=== PATIENT | female | born 1955 | race African-American/Black ===

== ENCOUNTER → 2016-09-08 | Outpatient (CLI) | payer BC | LOC: RAD 12:39 | PROVIDERS: ATTEND Internal Medicine | DX: C34.31 Malignant neoplasm of lower lobe, right bronchus or lung (principal) | CPT/HCPCS: 71260; 74177 ==

== ENCOUNTER → 2016-11-02 | Outpatient (CLI) | payer BC | LOC: RAD 09:34 | PROVIDERS: ATTEND Internal Medicine | DX: C34.31 Malignant neoplasm of lower lobe, right bronchus or lung (principal) | CPT/HCPCS: 71260; 74177 ==

== ENCOUNTER → 2017-01-13 | Outpatient (CLI) | payer BC | LOC: OD 10:30 | PROVIDERS: ATTEND Radiology Radiation Oncology | DX: C77.1 Secondary and unspecified malignant neoplasm of intrathoracic lymph nodes (principal); C34.31 Malignant neoplasm of lower lobe, right bronchus or lung ==

== ENCOUNTER → 2017-01-28 | Outpatient (CLI) | payer BC ==
--- NOTE | 2017-01-28 11:57 | RADIOLOGY REPORT (SQ) ---
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 TECHNIQUE: Left shoulder images acquired and stored on PACS. Multiplanar imaging to include fat sens itive sequences such as T1, water sensitive sequences such as FST2/STIR, cartilage sensitive sequence s such as FSPD/gradient-echo sequences. LIMITATIONS: Patient motion. FINDINGS: BONE MARROW AND CORTEX: No worrisome bone lesions or marrow replacement. No occult fractur es. JOINT OR BURSAL EFFUSION: No significant joint or bursal fluid. No suggestion of loose bodies. GLENO-HUMERAL ARTICULATION: Normal articulation. No subluxation. No cystic change. No osteophytes or cartilage loss. ACROMION AND AC JOINT: Type 2. No down-sloping or distal spur. Sub-acromial space maintained. No si gnificant AC joint arthropathy. ROTATOR CUFF AND INTERVAL: Cuff musculature is symmetric with normal signal. Small rim rent tear of the supraspinatus. Small amount of fluid surrounding the cuff. Infraspinatus, subscapularis and ter es minor are intact. No rotator interval tear. No rotator interval thickening to suggest adhesive capsulitis. LABRUM AND BICEPS LABRAL COMPLEX: Intact. No labral tear. Intra-articular long-head biceps tendon n ormal. Distal biceps in normal location in bicipital groove. REMAINDER OF LABRUM AND IGHL : No gross tear or paralabral cyst formation. Labral evaluation is less than optimal without joint distention. No thickening of IGHL to suggest adhesive capsulitis. PERIARTICULAR AND ADJACENT SOFT TISSUES: No masses or abnormal nodes. OTHER: No other significant finding. IMPRESSION: Peritendinitis. Small rim rent tear of the supraspinatus. No full-thickness tear. TECHNICAL DOCUMENTATION: JOB ID: [id number] [employer]- All Rights Reserved
--- NOTE | 2017-01-28 12:08 | RADIOLOGY REPORT (SQ) ---
EXAM DESCRIPTION: MRI LT UPPER EXTREMITY COMBO COMPLETED DATE/TIME: 01/28/2017 11:22 am REASON FOR STUDY: SECONDARY MALIGNANT NEOPLASM OF BONE (C79.51) COMPARISON: None. TECHNIQUE: T1 pre and post gadolinium, T2 fat sat sequences of the left humerus. Images saved to [facility]. CONTRAST TYPE AND DOSE: 15 cc ProHance. RENAL FUNCTION: GFR > 60. LIMITATIONS: None. FINDINGS: Intermediate T1 signal with normal T2 signal in the proximal humeral shaft consistent with benign marrow reconversion. No bone or soft tissue mass. Neurovascular structures are intact. The re is a left-sided port partially visualized. IMPRESSION: No evidence of metastatic disease. TECHNICAL DOCUMENTATION: JOB ID: [id number] [employer]- All Rights Reserved
== END ==
LOC: RAD 08:38
PROVIDERS: ATTEND Internal Medicine
DX: C79.51 Secondary malignant neoplasm of bone (principal); M25.512 Pain in left shoulder
CPT/HCPCS: 73220; 73221; A9576

== ENCOUNTER → 2017-02-06 | Outpatient (CLI) | payer BC ==
--- NOTE | 2017-02-10 14:22 | RADIOLOGY REPORT (SQ) ---
EXAM DESCRIPTION: PET CT SKULL/THIGH COMPLETED DATE/TIME: 02/06/2017 10:21 pm REASON FOR STUDY: LUNG CANCER C34.31 MALIGNANT NEOPLASM OF LOWER LOBE, RIGHT BRONCHUS OR L COMPARISON: CT chest 11/02/2016, 09/08/2016 PET-CT 07/01/2016, 03/21/2016, 10/15/2012 RADIONUCLIDE AND DOSE: 10.9 mCi F18 FDG The route of agent administration: Intravenous FASTING BLOOD SUGAR: 88 mg/dl CONTRAST TYPE AND DOSE: No CT contrast given. TECHNIQUE: Blood glucose level was verified. Above dose of FDG was injected intravenously. 2-D seg mented attenuation correction images were obtained from the base of the skull to the midthighs. Nonc ontrast CT images were obtained for attenuation correction and fusion with emission images. CT image s were performed without oral or intravenous contrast and are not sensitive for parenchymal lesions. A series of overlapping emission PET images were obtained. Images reviewed and manipulated at [facility] work station by the radiologist. Images stored on PACS. LIMITATIONS: Mild misregistration artifact between the CT and PET images over the head and upper nec k FINDINGS: HEAD AND NECK: No areas of abnormal metabolic activity in the soft tissues of the head and neck. CHEST: The right hilar activity seen on 07/01/2016 has slightly decreased, now with SUV of 3.3. There is right lower lobe collapse, consolidation, and bronchiectasis similar compared to the previous chano dies with the radiation therapy marker over the right lower lobe, unchanged. No pleural effusions. ABDOMEN AND PELVIS: No areas of abnormal metabolic activity in the abdomen or pelvis. Expected physi ologic activity is present in the genitourinary system and bowel. PROXIMAL LOWER EXTREMITIES: No areas of abnormal metabolic activity in the soft tissues of the lower extremities. BONES: No abnormal metabolic activity in the visualized skeleton. Specifically, the lesions in L4, L 5, S1, and the right innominate bone seen on prior PET-CT 07/01/2016 and have resolved. There is left glenohumeral joint space narrowing with synovial uptake with SUV 3.[address] FINDINGS: Tiny midline the supraumbilical fat containing ventral hernia, left upper thierry e intrarenal nonobstructive 5 mm calculus. Post cholecystectomy. Left permanent central line tip shrestha perior vena cava. Previously placed PleurX catheter has been removed. Liver activity SUV 2.3, blood pool activity SUV 1.8 OTHER: No other significant findings. IMPRESSION: Resolution of bony metastatic disease since prior PET-CT. Post therapeutic changes in the right lung with chronic volume loss and consolidation in the right lo wer lobe with very mild persistent increased uptake at the right hilum. Hilar uptake is less promine nt than on prior PET-CT. TECHNICAL DOCUMENTATION: JOB ID: [id number] [employer]- All Rights Reserved
== END ==
LOC: RAD 02-04 14:05
PROVIDERS: ATTEND Internal Medicine
DX: C34.31 Malignant neoplasm of lower lobe, right bronchus or lung (principal)
CPT/HCPCS: 78815; A9552

== ENCOUNTER → 2017-06-05 | Outpatient (CLI) | payer BC ==
--- NOTE | 2017-06-07 10:12 | RADIOLOGY REPORT (SQ) ---
EXAM DESCRIPTION: PET CT SKULL/THIGH COMPLETED DATE/TIME: 06/05/2017 8:00 pm REASON FOR STUDY: LUNG CANCER C34.31 MALIGNANT NEOPLASM OF LOWER LOBE, RIGHT BRONCHUS OR L COMPARISON: PET-CT 10/15/2012, 03/21/2016, 07/11/2016, 02/06/2017 CT chest abdomen pelvis 09/08/2016, 11/02/2016 RADIONUCLIDE AND DOSE: 10.4 mCi F18 FDG The route of agent administration: Intravenous FASTING BLOOD SUGAR: 94 mg/dl CONTRAST TYPE AND DOSE: No CT contrast given. TECHNIQUE: Blood glucose level was verified. Above dose of FDG was injected intravenously. 2-D seg mented attenuation correction images were obtained from the base of the skull to the midthighs. Nonc ontrast CT images were obtained for attenuation correction and fusion with emission images. CT image s were performed without oral or intravenous contrast and are not sensitive for parenchymal lesions. A series of overlapping emission PET images were obtained. [facility] by the radiologist. Images stored on PACS. LIMITATIONS: None. FINDINGS: HEAD AND NECK: No areas of abnormal metabolic activity in the soft tissues of the head and neck. CHEST: There is a new nodule in the medial aspect right upper lobe on axial image 70, with SUV of 1.8 . This is abnormal but nonspecific. There is right lower lobe volume loss and consolidation similar compared to 02/06/2017 and 07/11/2016. However, on today's exam there is a thin rind of hypermetabolic activity around its periphery with SUV ranging from 5 to 5.2 this is new hypermetabolic activity compared to 02/06/2017. There is soft tissue dorsal to the bronchus intermedius with mild impression on the dorsal wall. Thi s is just above the right lower lobe consolidation, with SUV of 5.0. Findings are worrisome for an e nlarged inflamed lymph node or tumor in a lymph node. There is a small right pleural effusion. Along the right lung base/ inferior hemithorax there is ple ural metabolic activity with SUV of 2.2. There is a 6 mm nodule at the right lung apex similar compared to previous studies with SUV 1.8, nons pecific. ABDOMEN AND PELVIS: No areas of abnormal metabolic activity in the abdomen or pelvis. Expected physi ologic activity is present in the genitourinary system and bowel. PROXIMAL LOWER EXTREMITIES: No areas of abnormal metabolic activity in the soft tissues of the lower extremities. BONES: The hypermetabolic bony lesions seen on 07/11/[address] FINDINGS: Left permanent central line tip superior vena cava. Post cholecystectomy. P ost left mastectomy. Tiny midline ventral hernia. Bilateral renal calculi, left upper pole renal cy st. OTHER: Liver background SUV 2.2. Blood pool background SUV 1.4 IMPRESSION: Metabolic activity along the right lower hemithorax primarily along the pleural space wo rrisome for recurrent disease. This is seen as a rim of hypermetabolic activity around the periphery of the right lower lobe. Hypermetabolic lymph node in the right hilum dorsal to the bronchus intermedius TECHNICAL DOCUMENTATION: JOB ID: [id number] [employer]- All Rights Reserved
== END ==
LOC: RAD 16:00
PROVIDERS: ATTEND Internal Medicine
DX: C34.90 Malignant neoplasm of unspecified part of unspecified bronchus or lung (principal)
CPT/HCPCS: 78815; A9552

== ENCOUNTER → 2017-06-15 | Outpatient (CLI) | payer BC ==
--- NOTE | 2017-06-15 16:51 | WOMENS IMAGING REPORT ---
EXAM DESCRIPTION: 3D DX MAMMO RIGHT UNILAT; U/S BREAST UNILAT LIMITED COMPLETED DATE/TIME: 06/15/2017 8:51 am; 06/15/2017 9:41 am REASON FOR STUDY: MASTOYDYNIA; N64.4; RT BREAST PAIN N64.4 MASTODYNIA COMPARISON: None. TECHNIQUE: Standard craniocaudal and mediolateral oblique images of the right breast recorded using digital acquisition and breast tomosynthesis. Right breast 90 mediolateral view and tomosynthesis. Right breast ultrasound in the area of pain Patient is post left mastectomy LIMITATIONS: None. FINDINGS: BREAST: Right MASSES: No suspicious masses. CALCIFICATIONS: No new or suspicious calcifications. ARCHITECTURAL DISTORTION: None. DEVELOPING DENSITY: None. ASYMMETRY: None noted. OTHER: No other significant findings. Read with the assistance of CAD. .[facility] - R2 Cenova Version 1.3 .[facility] - R2 Cenova Version 1.3 .[facility] - R2 Cenova Version 2.4 .[facility] [place] - R2 Cenova Version 2.4 .[facility] - R2 [employer] Version 9.2 Right breast ultrasound: Ultrasound of the right breast from the 1 o'clock to the 5 o'clock position was performed in the area of breast pain. No discrete cystic or solid lesions. No acoustic absorpt ion. No worrisome focal findings. IMPRESSION: No mammographic/tomosynthesis evidence for malignancy right breast. No ultrasound evide nce for malignancy right breast. BREAST DENSITY: a. The breasts are almost entirely fatty. BIRAD: 1 Negative. RECOMMENDATION: RECOMMENDED FOLLOW UP: Please continue yearly right breast screening tomosynthesis i n May 2018 unless otherwise clinically indicated sooner SPECIFIC INTERVENTION/IMAGING/CONSULTATION RECOMMENDED:No additional intervention/ imaging/consultati on needed at this time. COMMUNICATION:Patient notified by letter COMMENT: The patient has been notified of the results by letter per SA requirements. Additional no tification policies are in place for contacting patient with suspicious or incomplete findings. Quality ID #225: The [employer] recommends an annual screening mammogram for women aged 40 years or over. This facility utilizes a reminder system to ensure that all patients receive reminder letters, and/or direct phone calls for appointments. This includes reminders for routine scr eening mammograms, diagnostic mammograms, or other Breast Imaging Interventions when appropriate. Th is patient will be placed in the appropriate reminder system. The [employer] (ACR) has developed recommendations for screening MRI of the breast s in certain patient populations, to be used in conjunction with mammography. Breast MRI surveillanc e may be appropriate for women with more than 20% lifetime risk of developing breast cancer as deter mined by genetic testing, significant family history of the disease, or history of mantle radiation f or Hodgkins Disease. ACR Practice Guidelines 2008. DBT Technology DBT is a type of tomographic mammography. With conventional mammography, overlapping breast tissue ma y make lesions difficult to detect, even with good compression. DBT uses an x-ray tube that rotates a round the breast, taking images at different angles. These images are then combined to create thin sl ices of the breast that the radiologist can view as a 3D reconstruction. The [employer] unit can perform full-field digital mammograms (2D imaging); or DBT (3D imaging); or both, in a combination mode that quickly performs both the mammogram and the tomosynthesis scan while the breast is still compressed. PQRS 6045F: Fluoroscopic imaging is not utilized for breast tomosynthesis. TECHNICAL DOCUMENTATION: FINDING NUMBER: (1) ASSESSMENT: (1) JOB ID: [id number] [employer]- All Rights Reserved
--- NOTE | 2017-06-15 16:51 | WOMENS IMAGING REPORT ---
EXAM DESCRIPTION: 3D DX MAMMO RIGHT UNILAT; U/S BREAST UNILAT LIMITED COMPLETED DATE/TIME: 06/15/2017 8:51 am; 06/15/2017 9:41 am REASON FOR STUDY: MASTOYDYNIA; N64.4; RT BREAST PAIN N64.4 MASTODYNIA COMPARISON: None. TECHNIQUE: Standard craniocaudal and mediolateral oblique images of the right breast recorded using digital acquisition and breast tomosynthesis. Right breast 90 mediolateral view and tomosynthesis. Right breast ultrasound in the area of pain Patient is post left mastectomy LIMITATIONS: None. FINDINGS: BREAST: Right MASSES: No suspicious masses. CALCIFICATIONS: No new or suspicious calcifications. ARCHITECTURAL DISTORTION: None. DEVELOPING DENSITY: None. ASYMMETRY: None noted. OTHER: No other significant findings. Read with the assistance of CAD. .[facility] - R2 Cenova Version 1.3 .[facility] Imaging - R2 Cenova Version 1.3 .[facility] - R2 Cenova Version 2.4 .[facility] - R2 Cenova Version 2.4 .[facility] - R2 [employer] Version 9.2 Right breast ultrasound: Ultrasound of the right breast from the 1 o'clock to the 5 o'clock position was performed in the area of breast pain. No discrete cystic or solid lesions. No acoustic absorpt ion. No worrisome focal findings. IMPRESSION: No mammographic/tomosynthesis evidence for malignancy right breast. No ultrasound evide nce for malignancy right breast. BREAST DENSITY: a. The breasts are almost entirely fatty. BIRAD: 1 Negative. RECOMMENDATION: RECOMMENDED FOLLOW UP: Please continue yearly right breast screening tomosynthesis i n May 2018 unless otherwise clinically indicated sooner SPECIFIC INTERVENTION/IMAGING/CONSULTATION RECOMMENDED:No additional intervention/ imaging/consultati on needed at this time. COMMUNICATION:Patient notified by letter COMMENT: The patient has been notified of the results by letter per SA requirements. Additional no tification policies are in place for contacting patient with suspicious or incomplete findings. Quality ID #[id number]: The [employer] recommends an annual screening mammogram for women aged 40 years or over. This facility utilizes a reminder system to ensure that all patients receive reminder letters, and/or direct phone calls for appointments. This includes reminders for routine scr eening mammograms, diagnostic mammograms, or other Breast Imaging Interventions when appropriate. Th is patient will be placed in the appropriate reminder system. The [employer] (ACR) has developed recommendations for screening MRI of the breast s in certain patient populations, to be used in conjunction with mammography. Breast MRI surveillanc e may be appropriate for women with more than 20% lifetime risk of developing breast cancer as deter mined by genetic testing, significant family history of the disease, or history of mantle radiation f or Hodgkins Disease. ACR Practice Guidelines 2008. DBT Technology DBT is a type of tomographic mammography. With conventional mammography, overlapping breast tissue ma y make lesions difficult to detect, even with good compression. DBT uses an x-ray tube that rotates a round the breast, taking images at different angles. These images are then combined to create thin sl ices of the breast that the radiologist can view as a 3D reconstruction. The [employer] unit can perform full-field digital mammograms (2D imaging); or DBT (3D imaging); or both, in a combination mode that quickly performs both the mammogram and the tomosynthesis scan while the breast is still compressed. PQRS 6045F: Fluoroscopic imaging is not utilized for breast tomosynthesis. TECHNICAL DOCUMENTATION: FINDING NUMBER: (1) ASSESSMENT: (1) JOB ID: [id number] [employer]- All Rights Reserved
== END ==
LOC: WI 08:34
PROVIDERS: ATTEND Physician Assistant
DX: N64.4 Mastodynia (principal)
CPT/HCPCS: 77061; 76642; G0206

== ENCOUNTER 2017-08-25 18:18 | Inpatient (IN) | payer BC ==
[2017-08-25] MEDS ORDERED: ACETAMINOPHEN 325 MG TABLET PO PRN (19:32)
[2017-08-25] MEDS ORDERED: ONDANSETRON HCL INJ/PF 4 MG/2 ML SDV IV PRN (19:32)
[2017-08-25] MEDS ORDERED: INSULIN LISPRO 100 UNIT/ML 3 ML VIAL SUBCUT PRN (19:38)
[2017-08-25] MEDS ORDERED: DEXTROSE 40% GEL 15 GM TUBE PO PRN ×2 (19:38)
[2017-08-25] MEDS ORDERED: DEXTROSE 50%-WATER 25 GM/50 ML DISP.SYRIN IV PRN ×2 (19:38)
[2017-08-25] MEDS ORDERED: GLUCAGON,HUMAN RECOMB 1 MG INJ IM PRN (19:38)
[2017-08-25] MEDS ORDERED: MAG HYDROX/AL HYDROX/SIMETH SUSP 30 ML UDCUP PO PRN (19:41)
[2017-08-25] MEDS ORDERED: ALBUTEROL SULFATE HFA (90 MCG/PUFF) 200 PUFF/8.5 GM MDI IH PRN (20:55)
[2017-08-25] MEDS ORDERED: INFLUENZA ADLT QUAD (36MOS+) 2017-18 VAC 0.5 ML SYR IM PRN (21:00)
[2017-08-25 21:43] LABS: ANION GAP 17 (5-19); BLOOD UREA NITROGEN 16 mg/dL (7-20); CALCIUM 10.3 mg/dL (8.4-10.2); CARBON DIOXIDE 24 mmol/L (22-30); CHLORIDE 101 mmol/L (98-107); GLUCOSE 131 mg/dL (75-110); SODIUM 141.5 mmol/L (137-145)
[2017-08-25] MEDS: IPRATROPIUM/ALBUTEROL 0.5-2.5 MG/3 ML AMPUL NEB SCH (21:50)
[2017-08-25] MEDS: BENZONATATE 100 MG CAPSULE PO SCH (22:20)
[2017-08-25] MEDS: CLONIDINE HCL 0.1 MG TABLET PO SCH (22:21)
[2017-08-25] MEDS: GUAIFENESIN 600 MG TABLET.SA PO SCH (22:21)
[2017-08-25] MEDS: MONTELUKAST SODIUM 10 MG TABLET PO SCH (22:22)
[2017-08-25] MEDS: FLUTICASONE/SALMETEROL DISKUS 250-50 MCG/DOSE IH SCH (22:22)
[2017-08-25] MEDS: RANOLAZINE 500 MG TAB.SR.12H PO SCH (22:22)
[2017-08-25] MEDS: LATANOPROST 0.005% OPH SOLN 2.5 ML OU SCH (22:26)
[2017-08-25] MEDS: OXYCODONE-ACETAMINOPHEN 5-325 MG TABLET PO PRN (23:08)
[2017-08-25] MEDS: POTASSI CL 40 MEQ/NS 1L 1,000 ML IV PRN (23:14)
--- NOTE | 2017-08-26 00:44 | RADIOLOGY REPORT (SQ) ---
EXAM DESCRIPTION: CT CHEST, ABDOMEN AND PELVIS WITH CONTRAST CLINICAL HISTORY: lung cancer COMPARISON: 11/02/2016 TECHNIQUE: CT of the chest, abdomen and pelvis are performed during IV bolus administration of 97 mL of Isovue-370. DLP: 1551.63 mGycm FINDINGS: Chest: Mediastinal windows demonstrate no abnormalities of visualized thyroid gland. Great vessels have normal anatomic configuration. Visualized thoracic aorta is unremarkable. No gross abnormalities of the pulmonary artery. No cardiomegaly, pericardial effusion, or coronary artery atherosclerosis. No definite abnormalities of the esophagus. No mediastinal lymphadenopathy. Lung windows demonstrate no pneumothorax. Pleural thickening and possible small right pleural effusion. Right basilar consolidation with air bronchograms. Adjacent to that is there is an area without air bronchograms that may represent a mass or dense nonaerated consolidation. This does represent a mass the approximate area is 4.2 cm in greatest dimension. Pleural-based nodular opacity in the right lung measuring 0.9 cm. Possible tiny left pleural effusion. No left-sided consolidation or pulmonary nodules. Postoperative changes in the right lung base. In the right upper lobe there are bandlike nodular opacities measuring 0.8 cm. No well-defined lung mass identified in the right lung base. Possible prior Abdomen: The liver has normal size and density. No intrahepatic mass or biliary dilatation. Prior cholecystectomy. The spleen, pancreas, and adrenal glands are unremarkable. Bosniak class I left renal cysts. No hydronephrosis or solid mass. Aortoiliac atherosclerosis. IVC is unremarkable. The portal vein patent. The proximal visceral and renal arteries are patent. No free intraperitoneal air. The stomach and duodenum have normal course. Pelvis: Large amount of ascites. Prior hysterectomy. Urinary bladder is unremarkable. No free pelvic fluid or lymphadenopathy. No dilated loops of large or small bowel. No evidence of appendicitis. No lytic osseous lesions identified. IMPRESSION: 1. Masslike consolidation of the right lung base. The solid portion of this consolidation measures 4.2 cm with adjacent consolidated lungs with air bronchograms. This could represent a mass with postobstructive pneumonic process of the right lower lobe. Alternatively, the entire opacity could represent pneumonic or malignant consolidation. 2. There is a 0.9 cm pleural-based pulmonary nodule in the right midlung best seen on image #28, series 4. There are also 3 nodular opacities in the right upper lung measuring approximately 0.8 cm best seen on image numbers 19 and 20. These could represent neoplastic pulmonary nodules, scarring, or postoperative change. PET/CT may be able to provide additional characterization. 3. Possible tiny bilateral pleural effusions. 4. Moderate to large amount of ascites. This exam was performed according to our departmental dose-optimization program, which includes automated exposure control, adjustment of the mA and/or kV according to patient size and/or use of iterative reconstruction technique.
[2017-08-26] MEDS: CLONIDINE HCL 0.1 MG TABLET PO SCH ×3 (06:00→21:49)
[2017-08-26] MEDS: LANSOPRAZOLE 30 MG TAB.RAP.DR PO SCH ×2 (06:00→17:35)
[2017-08-26 07:10] LABS: ABSOLUTE EOSINOPHILS # (AUTO) 0.1 10^3/uL (0.0-0.6); ABSOLUTE LYMPHOCYTES (AUTO) 0.9 10^3/uL (0.5-4.7); ABSOLUTE MONOCYTES (AUTO) 0.8 10^3/uL (0.1-1.4); BASOPHILS % (AUTO) 0.4 % (0-2); EOSINOPHILS % (AUTO) 2.4 % (0-6); HEMATOCRIT 34.4 % (36.0-47.0); HEMOGLOBIN 11.3 g/dL (12.0-15.5); LYMPHOCYTES % (AUTO) 17.9 % (13-45); MEAN CORPUSCULAR HEMOGLOBIN 30.5 pg (27.0-33.4); MEAN CORPUSCULAR VOLUME 92 fl (80-97); MONOCYTES % (AUTO) 15.9 % (3-13); PLATELET COUNT 211 10^3/uL (150-450); RED BLOOD COUNT 3.72 10^6/uL (3.72-5.28); RED CELL DISTRIBUTION WIDTH 14.4 % (11.5-14.0); SEGMENTED NEUTROPHILS % (AUTO) 63.4 % (42-78); TOTAL CELLS COUNTED % (AUTO) 100 %; WHITE BLOOD COUNT 4.8 10^3/uL (4.0-10.5)
[2017-08-26 07:31] LABS: ALANINE AMINOTRANSFERASE 30 U/L (9-52); ALBUMIN 3.5 g/dL (3.5-5.0); ALKALINE PHOSPHATASE 81 U/L (38-126); ANION GAP 12 (5-19); ASPARTATE AMINO TRANSFERASE 31 U/L (14-36); BILIRUBIN,DIRECT 0.2 mg/dL (0.0-0.4); BILIRUBIN,TOTAL 0.6 mg/dL (0.2-1.3); BLOOD UREA NITROGEN 15 mg/dL (7-20); CALCIUM 9.5 mg/dL (8.4-10.2); CARBON DIOXIDE 26 mmol/L (22-30); CHLORIDE 105 mmol/L (98-107); GLUCOSE 111 mg/dL (75-110); MAGNESIUM 1.6 mg/dL (1.6-2.3); POTASSIUM 3.8 mmol/L (3.6-5.0); TOTAL PROTEIN 6.6 g/dL (6.3-8.2)
[2017-08-26] MEDS: IPRATROPIUM/ALBUTEROL 0.5-2.5 MG/3 ML AMPUL NEB SCH ×3 (08:50→21:13)
--- NOTE | 2017-08-26 09:06 | PDOC CONSULTATION ---
Consultation Consult Date: 08/26/17 Attending physician:: TYLER SANDOVAL Consult reason:: Known stage IV lung ca w/ persistant N/V History of Present Illness Admission Date/PCP: 08/25/17 18:18 VIOLETA JAVED Patient complains of: N/V weakness, cough/congestion History of Present Illness: SARA AMAYA is a 61 year old female with known history of stage IV lung cancer, most recently she had progression noted in 06/2017, and was started on immunotherapy with OP she was tolerating that well. However about 4 weeks agoDIVO,, prior to actually starting on this, she began experiencing spontaneous emesis. It happens about 3-4 times a day, as soon as she takes a swallow of anything, including liquids and solids, about 5 minutes later it comes right back up. She is also been having coughing, that has been more of a chronic issue, over the last 4 weeks she has lost 15 pounds. When we saw her yesterday she was very weak, she was given some fluids with her regular treatment. But after that she was still very weak and we decided on directly admitting her. Since admission she had a full workup including CT of the chest abdomen pelvis, CT of the chest does indicate a right lung lesion, that looks endobronchial, and is causing right lower lobe collapse, there seems to be progression of disease. CT of the abdomen pelvis indicates a large amount of pelvic ascites that is new. But there does not seem to be any obstruction noted. Past Medical History Cardiac Medical History: Reports: Atrial Fibrillation, Hyperlipidema, Hypertension Denies: Coronary Artery Disease, Myocardial Infarction Pulmonary Medical History: Reports: Asthma, Bronchitis, Chronic Obstructive Pulmonary Disease (COPD), Pneumonia Denies: Tuberculosis Neurological Medical History: Denies: Seizures Endocrine Medical History: Reports: Diabetes Mellitus Type 2 - IDDM Malignancy Medical History: Reports: Lung Cancer GI Medical History: Reports: Gastroesophageal Reflux Disease Musculoskeltal Medical History: Reports: Arthritis - LEFT KNEE OSTEOARTHRITIS Psychiatric Medical History: Denies: Depression Hematology: Denies: Anemia Past Surgical History Past Surgical History: Reports: Mastectomy - left, Other - Lung biopsy, Pleurx catheter placement and removal, thoracentesis Social History Information Source: Patient Smoking Status: Former Smoker Cigarettes Packs Per Day: 1 Number of Years Smokin Frequency of Alcohol Use: None Hx Recreational Drug Use: No Hx Prescription Drug Abuse: No - Advance Directive Resuscitation Status: Full Code Family History Family History: Reviewed & Not Pertinent, Other - no ca in fam known Parental Family History Reviewed: Yes Children Family History Reviewed: Yes Sibling(s) Family History Reviewed.: Yes Medication/Allergy Home Medications: Albuterol Sulfate [Proair HFA Inhalation Aerosol 8.5 gm MDI] 2 puff IH Q4HP PRN 08/25/17 Amlodipine Besylate [Norvasc 2.5 mg Tablet] 2.5 mg PO DAILY 08/25/17 Benzonatate [Tessalon Perle 100 mg Capsule] 200 mg PO QID 08/25/17 Brimonidine Tartrate [Alphagan P] 1 drop OU BID 08/25/17 Clonidine HCl [Catapres 0.1 mg Tablet] 0.1 mg PO Q8 08/25/17 Esomeprazole Mag Trihydrate [Nexium] 40 mg PO DAILY 08/25/17 Ezetimibe [Zetia 10 mg Tablet] 10 mg PO DAILY 08/25/17 Fluticasone/Salmeterol [Advair 250-50 Diskus 28 dose] 1 puff IH Q12 08/25/17 Insulin Glargine,Hum.rec.anlog [Lantus Solostar] 38 units SQ QHS 08/25/17 Insulin Lispro [Humalog Kwikpen U-100] 18 units SQ MEALS 08/25/17 Latanoprost [Xalatan] 1 drop OU QHS 08/25/17 Montelukast Sodium [Singulair 10 mg Tablet] 10 mg PO QHS 08/25/17 Ranolazine [Ranexa 500 mg Tab.sr] 500 mg PO Q12 08/25/17 Tamoxifen Citrate 20 mg PO DAILY 08/25/17 Allergies/Adverse Reactions: pravastatin [Pravastatin] Allergy (Severe, Verified 08/05/15 11:41) JOINT PAIN butorphanol tartrate [From Stadol] Allergy (Intermediate, Verified 08/05/15 11: 41) hives and itching latex [Latex] Allergy (Intermediate, Verified 08/05/15 11:41) hives and itching Sulfa (Sulfonamide Antibiotics) Allergy (Intermediate, Verified 08/05/15 11:41) giant hives and bad itching Review of Systems Constitutional: PRESENT: anorexia, fatigue, weakness Cardiovascular: PRESENT: dyspnea on exertion Respiratory: PRESENT: cough, dyspnea, sputum Gastrointestinal: PRESENT: abdominal pain, dysphagia, nausea, vomiting Genitourinary: ABSENT: dysuria, hematuria Integumentary: ABSENT: rash, wounds Neurological: ABSENT: abnormal gait, abnormal speech, confusion, dizziness, focal weakness, syncope Physical Exam Vital Signs: Temp Pulse Resp BP Pulse Ox 97.4 F 105 H 20 107/75 100 08/26/17 08:00 08/26/17 08:53 08/26/17 08:53 08/26/17 08:00 08/26/17 08:53 Intake & Output 08/25/17 08/26/17 08/27/17 06:59 06:59 06:59 Intake Total 1000 Balance 1000 Weight 71.5 kg General appearance: PRESENT: no acute distress Head exam: PRESENT: atraumatic Eye exam: PRESENT: PERRLA Mouth exam: PRESENT: dry mucosa Neck exam: ABSENT: carotid bruit, JVD, lymphadenopathy, thyromegaly Respiratory exam: PRESENT: crackles, decreased breath sounds Cardiovascular exam: PRESENT: RRR. ABSENT: diastolic murmur, rubs, systolic murmur GI/Abdominal exam: PRESENT: distended Rectal exam: PRESENT: deferred Extremities exam: PRESENT: full ROM. ABSENT: calf tenderness, clubbing, pedal edema Neurological exam: PRESENT: alert, awake, oriented to person, oriented to place , oriented to time, oriented to situation, CN II-XII grossly intact. ABSENT: motor sensory deficit Results Laboratory Results: 08/26/17 06:43 08/26/17 06:43 08/25/17 08/26/17 08/26/17 21:15 06:43 06:43 WBC 4.8 RBC 3.72 Hgb 11.3 L Hct 34.4 L MCV 92 MCH 30.5 MCHC 33.0 RDW 14.4 H Plt Count 211 Seg Neutrophils % 63.4 Lymphocytes % 17.9 Monocytes % 15.9 H Eosinophils % 2.4 Basophils % 0.4 Absolute Neutrophils 3.0 Absolute Lymphocytes 0.9 Absolute Monocytes 0.8 Absolute Eosinophils 0.1 Absolute Basophils 0.0 Sodium 141.5 143.0 Potassium 3.0 L* 3.8 Chloride 101 105 Carbon Dioxide 24 26 Anion Gap 17 12 BUN 16 15 Creatinine 0.93 0.88 Est GFR ( Amer) > 60 > 60 Est GFR (Non-Af Amer) > 60 > 60 Glucose 131 H 111 H Calcium 10.3 H 9.5 Magnesium 1.6 Total Bilirubin 0.6 AST 31 ALT 30 Alkaline Phosphatase 81 Total Protein 6.6 Albumin 3.5 Impressions: Abdomen/Pelvis CT 08/25/17 00:00 IMPRESSION: 1. Masslike consolidation of the right lung base. The solid portion of this consolidation measures 4.2 cm with adjacent consolidated lungs with air bronchograms. This could represent a mass with postobstructive pneumonic process of the right lower lobe. Alternatively, the entire opacity could represent pneumonic or malignant consolidation. 2. There is a 0.9 cm pleural-based pulmonary nodule in the right midlung best seen on image #28, series 4. There are also 3 nodular opacities in the right upper lung measuring approximately 0.8 cm best seen on image numbers 19 and 20. These could represent neoplastic pulmonary nodules, scarring, or postoperative change. PET/CT may be able to provide additional characterization. 3. Possible tiny bilateral pleural effusions. 4. Moderate to large amount of ascites. This exam was performed according to our departmental dose-optimization program, which includes automated exposure control, adjustment of the mA and/or kV according to patient size and/or use of iterative reconstruction technique. Chest CT 08/25/17 00:00 IMPRESSION: 1. Masslike consolidation of the right lung base. The solid portion of this consolidation measures 4.2 cm with adjacent consolidated lungs with air bronchograms. This could represent a mass with postobstructive pneumonic process of the right lower lobe. Alternatively, the entire opacity could represent pneumonic or malignant consolidation. 2. There is a 0.9 cm pleural-based pulmonary nodule in the right midlung best seen on image #28, series 4. There are also 3 nodular opacities in the right upper lung measuring approximately 0.8 cm best seen on image numbers 19 and 20. These could represent neoplastic pulmonary nodules, scarring, or postoperative change. PET/CT may be able to provide additional characterization. 3. Possible tiny bilateral pleural effusions. 4. Moderate to large amount of ascites. This exam was performed according to our departmental dose-optimization program, which includes automated exposure control, adjustment of the mA and/or kV according to patient size and/or use of iterative reconstruction technique. Status: Image reviewed by me Assessment & Plan - Diagnosis (1) Nausea & vomiting Qualifiers: Vomiting type: cyclical vomiting Vomiting Intractability: intractable Qualified Code(s): G43.A1 - Cyclical vomiting, intractable Plan: Intractable vomiting, unsure of cause, so for CT imaging does not show true source of this, unsure if the endobronchial lesion is causing cough that triggers the emesis or if there is some sort of esophageal stricture. Discussed barium swallow with Dr. Sandoval who is going to order that today. We also thought about the pelvic ascites causing pressure. So planning on paracentesis also. She is on antiemetics. Continue with aggressive hydration. (2) Malignant neoplasm of right upper lobe of lung Is this a current diagnosis for this admission?: Yes Plan: Possible progressive disease, but we just started immunotherapy so we cannot really call it refractory as of now. Plan for continued treatment as an outpatient (3) Bacterial pneumonia Is this a current diagnosis for this admission?: Yes Plan: She may have a pneumonia, postobstructive, start IV antibiotics today. Pulmonology consult, consider bronchoscopy. - Time Time Spent: Greater than 70 Minutes - Inpatient Certification Based on my medical assessment, after consideration of the patient's comorbidities, presenting symptoms, or acuity I expect that the services needed warrant INPATIENT care.: Yes I certify that my determination is in accordance with my understanding of Medicare's requirements for reasonable and necessary INPATIENT services [42 CFR 412.3e].: Yes Medical Necessity: Need For Continuous Telemetry Monitoring, Need for IV Antibiotics, Need for Surgery
[2017-08-26] MEDS ORDERED: (PENDING PHARMACY ID) (Brimonidine Tartrate [Alphagan P] 1 DROP) OU SCH (10:00)
[2017-08-26] MEDS ORDERED: (PENDING PHARMACY ID) (Esomeprazole Mag Trihydrate [Nexium] 40 MG) PO SCH (10:00)
[2017-08-26] MEDS ORDERED: (PENDING PHARMACY ID) (Tamoxifen Citrate [Tamoxifen Citrate] 20 MG) PO SCH (10:00)
[2017-08-26] MEDS: POTASSI CL 40 MEQ/NS 1L 1,000 ML IV PRN (10:22)
[2017-08-26] MEDS: EZETIMIBE 10 MG TABLET PO SCH (10:23)
[2017-08-26] MEDS: DOCUSATE SODIUM 100 MG CAPSULE PO SCH ×2 (10:23→17:36)
[2017-08-26] MEDS: LEVOFLOXACIN 500 MG TABLET PO SCH (10:23)
[2017-08-26] MEDS: BENZONATATE 100 MG CAPSULE PO SCH ×4 (10:23→21:46)
[2017-08-26] MEDS: RANOLAZINE 500 MG TAB.SR.12H PO SCH ×2 (10:24→21:46)
[2017-08-26] MEDS: TAMOXIFEN CITRATE 10 MG TABLET PO SCH (10:24)
[2017-08-26] MEDS: AMLODIPINE BESYLATE 2.5 MG TABLET PO SCH (10:25)
[2017-08-26] MEDS: GUAIFENESIN 600 MG TABLET.SA PO SCH ×2 (10:26→21:46)
[2017-08-26] MEDS: CEFEPIME 1 GM/D5W RTU 1 GM/50 ML RTUPB IV SCH ×2 (10:26→21:47)
[2017-08-26] MEDS: FLUTICASONE/SALMETEROL DISKUS 250-50 MCG/DOSE IH SCH ×2 (10:26→21:47)
[2017-08-26] MEDS: ENOXAPARIN SODIUM INJ 40 MG/0.4 ML DISP.SYRIN SUBCUT SCH (10:51)
[2017-08-26 11:45] LABS: INTERNATIONAL RATION (INR) 1.04; PROTHROMBIN TIME 14.4 SEC (11.4-15.4)
--- NOTE | 2017-08-26 12:56 | PDOC CONSULTATION ---
Consultation Consult Date: 08/26/17 Attending physician:: TYLER SANDOVAL Consult reason:: weakness/dypsnea History of Present Illness Admission Date/PCP: 08/25/17 18:18 VIOLETA JAVED History of Present Illness: 61-year-old female well-known to [place] [facility] with non-small cell lung cancer being treated by Dr. Munoz. Patient complained of increasing weakness before Thanksgiving they got progressively worse she had a bronchoscopy at [facility] early May results of these is not currently available. She complains of intermittent episodes of nausea and vomiting associated with intermittent constipation and diarrhea she denies coffee-ground emesis hematemesis or bright bright red blood per rectum or melena. She has an occasional cough but this is much less significant and has been in the past. She denies fevers or chills. She has lost a large amount of weight in a short amount of timeShe has had no appetite in the last 2-1/2 months Past Medical History Cardiac Medical History: Reports: Atrial Fibrillation, Hyperlipidema, Hypertension Denies: Coronary Artery Disease, Myocardial Infarction Pulmonary Medical History: Reports: Asthma, Bronchitis, Chronic Obstructive Pulmonary Disease (COPD), Pneumonia, Respiratory Failure Denies: Tuberculosis EENT Medical History: Denies: Ears, Nose Neurological Medical History: Denies: Multiple Sclerosis, Seizures Endocrine Medical History: Reports: Diabetes Mellitus Type 2 - IDDM, Obesity Renal/ Medical History: Denies: Nephrolithiasis Malignancy Medical History: Reports: Breast Cancer, Lung Cancer GI Medical History: Reports: Gastroesophageal Reflux Disease Musculoskeltal Medical History: Reports: Arthritis - LEFT KNEE OSTEOARTHRITIS Denies: Gout Skin Medical History: Denies: Psoriasis Psychiatric Medical History: Denies: Depression Traumatic Medical History: Denies: Traumatic Brain Injury Hematology: Denies: Anemia, Sickle Cell Disease Infectious Medical History: Denies: Hepatitis B, Hepatitis C, HIV Past Surgical History Past Surgical History: Reports: Mastectomy - left, Other - Lung biopsy, Pleurx catheter placement and removal, thoracentesis Social History Information Source: Patient, Dr. Reddy, [facility] Records Lives with: Alone Smoking Status: Former Smoker Cigarettes Packs Per Day: 1 Number of Years Smokin Passive smoke exposure as: Both Frequency of Alcohol Use: None Hx Recreational Drug Use: No Hx Prescription Drug Abuse: No Do you have pets?: No Have you had any respiratory illnesses as a child?: No Have you been exposed to any sick contacts recently?: No Have you had any recent respiratory illnesses?: No Have you travelled outside of [place] in the past 12 months?: No - Advance Directive Resuscitation Status: Full Code Family History Family History: COPD, Hypertension, Other - no ca in fam known Parental Family History Reviewed: Yes Children Family History Reviewed: Yes Sibling(s) Family History Reviewed.: Yes Medication/Allergy Home Medications: Albuterol Sulfate [Proair HFA Inhalation Aerosol 8.5 gm MDI] 2 puff IH Q4HP PRN 08/25/17 Amlodipine Besylate [Norvasc 2.5 mg Tablet] 2.5 mg PO DAILY 08/25/17 Benzonatate [Tessalon Perle 100 mg Capsule] 200 mg PO QID 08/25/17 Brimonidine Tartrate [Alphagan P] 1 drop OU BID 08/25/17 Clonidine HCl [Catapres 0.1 mg Tablet] 0.1 mg PO Q8 08/25/17 Esomeprazole Mag Trihydrate [Nexium] 40 mg PO DAILY 08/25/17 Ezetimibe [Zetia 10 mg Tablet] 10 mg PO DAILY 08/25/17 Fluticasone/Salmeterol [Advair 250-50 Diskus 28 dose] 1 puff IH Q12 08/25/17 Insulin Glargine,Hum.rec.anlog [Lantus Solostar] 38 units SQ QHS 08/25/17 Insulin Lispro [Humalog Kwikpen U-100] 18 units SQ MEALS 08/25/17 Latanoprost [Xalatan] 1 drop OU QHS 08/25/17 Montelukast Sodium [Singulair 10 mg Tablet] 10 mg PO QHS 08/25/17 Ranolazine [Ranexa 500 mg Tab.sr] 500 mg PO Q12 08/25/17 Tamoxifen Citrate 20 mg PO DAILY 08/25/17 Allergies/Adverse Reactions: pravastatin [Pravastatin] Allergy (Severe, Verified 08/05/15 11:41) JOINT PAIN butorphanol tartrate [From Stadol] Allergy (Intermediate, Verified 08/05/15 11: 41) hives and itching latex [Latex] Allergy (Intermediate, Verified 08/05/15 11:41) hives and itching Sulfa (Sulfonamide Antibiotics) Allergy (Intermediate, Verified 08/05/15 11:41) giant hives and bad itching Review of Systems Constitutional: PRESENT: anorexia, fatigue, weakness, weight loss. ABSENT: chills, fever(s), headache(s), night sweats Eyes: ABSENT: visual disturbances Ears: ABSENT: hearing changes Nose, Mouth, and Throat: ABSENT: mouth pain, sore throat Cardiovascular: PRESENT: chest pain, dyspnea on exertion Respiratory: ABSENT: hemoptysis Gastrointestinal: PRESENT: abdominal pain, bloating, constipation, diarrhea, nausea, vomiting. ABSENT: coffee ground emesis, heartburn, hematemesis, hematochezia, melena Genitourinary: ABSENT: dysuria, hematuria Musculoskeletal: ABSENT: deformity, joint swelling Integumentary: ABSENT: pruritus, rash Neurological: ABSENT: abnormal speech, confusion, focal weakness, frequent falls , memory loss Psychiatric: PRESENT: depression. ABSENT: hallucinations, homidical ideation, suicidal ideation Endocrine: ABSENT: cold intolerance, heat intolerance, menstrual abnormalities Hematologic/Lymphatic: ABSENT: easy bruising Physical Exam Vital Signs: Temp Pulse Resp BP Pulse Ox 98.0 F 98 17 106/66 98 08/26/17 11:46 08/26/17 11:46 08/26/17 11:46 08/26/17 11:46 08/26/17 11:46 Intake & Output 08/25/17 08/26/17 08/27/17 06:59 06:59 06:59 Intake Total 1000 Balance 1000 Weight 71.5 kg General appearance: PRESENT: no acute distress, cooperative. ABSENT: disheveled , mild distress, morbidly obese, severe distress, thin Head exam: PRESENT: atraumatic, normocephalic Eye exam: PRESENT: conjunctiva pale, EOMI. ABSENT: conjunctival injection, conjunctiva pink, nystagmus, periorbital swelling, scleral icterus Mouth exam: PRESENT: dry mucosa, neck supple, tongue midline. ABSENT: laceration, moist Neck exam: ABSENT: carotid bruit, JVD, lymphadenopathy, thyromegaly, tracheal deviation, tracheostomy Respiratory exam: PRESENT: decreased breath sounds, prolonged expiratory phas, rales, rhonchi, unlabored, wheezes. ABSENT: accessory muscle use, chest wall tenderness, clear to auscultation darinel, crackles, retraction, stridor, symmetrical, tachypnea Pulses: PRESENT: normal radial pulses GI/Abdominal exam: PRESENT: ascites, tenderness Extremities exam: ABSENT: clubbing, joint swelling Musculoskeletal exam: ABSENT: deformity, dislocation Neurological exam: PRESENT: alert, awake Psychiatric exam: PRESENT: flat affect Skin exam: PRESENT: dry, warm Results Laboratory Results: 08/26/17 06:43 08/26/17 06:43 08/25/17 08/26/17 08/26/17 21:15 06:43 06:43 WBC 4.8 RBC 3.72 Hgb 11.3 L Hct 34.4 L MCV 92 MCH 30.5 MCHC 33.0 RDW 14.4 H Plt Count 211 Seg Neutrophils % 63.4 Lymphocytes % 17.9 Monocytes % 15.9 H Eosinophils % 2.4 Basophils % 0.4 Absolute Neutrophils 3.0 Absolute Lymphocytes 0.9 Absolute Monocytes 0.8 Absolute Eosinophils 0.1 Absolute Basophils 0.0 Sodium 141.5 143.0 Potassium 3.0 L* 3.8 Chloride 101 105 Carbon Dioxide 24 26 Anion Gap 17 12 BUN 16 15 Creatinine 0.93 0.88 Est GFR ( Amer) > 60 > 60 Est GFR (Non-Af Amer) > 60 > 60 Glucose 131 H 111 H Calcium 10.3 H 9.5 Magnesium 1.6 Total Bilirubin 0.6 AST 31 ALT 30 Alkaline Phosphatase 81 Total Protein 6.6 Albumin 3.5 Impressions: Abdomen/Pelvis CT 08/25/17 00:00 IMPRESSION: 1. Masslike consolidation of the right lung base. The solid portion of this consolidation measures 4.2 cm with adjacent consolidated lungs with air bronchograms. This could represent a mass with postobstructive pneumonic process of the right lower lobe. Alternatively, the entire opacity could represent pneumonic or malignant consolidation. 2. There is a 0.9 cm pleural-based pulmonary nodule in the right midlung best seen on image #28, series 4. There are also 3 nodular opacities in the right upper lung measuring approximately 0.8 cm best seen on image numbers 19 and 20. These could represent neoplastic pulmonary nodules, scarring, or postoperative change. PET/CT may be able to provide additional characterization. 3. Possible tiny bilateral pleural effusions. 4. Moderate to large amount of ascites. This exam was performed according to our departmental dose-optimization program, which includes automated exposure control, adjustment of the mA and/or kV according to patient size and/or use of iterative reconstruction technique. Chest CT 08/25/17 00:00 IMPRESSION: 1. Masslike consolidation of the right lung base. The solid portion of this consolidation measures 4.2 cm with adjacent consolidated lungs with air bronchograms. This could represent a mass with postobstructive pneumonic process of the right lower lobe. Alternatively, the entire opacity could represent pneumonic or malignant consolidation. 2. There is a 0.9 cm pleural-based pulmonary nodule in the right midlung best seen on image #28, series 4. There are also 3 nodular opacities in the right upper lung measuring approximately 0.8 cm best seen on image numbers 19 and 20. These could represent neoplastic pulmonary nodules, scarring, or postoperative change. PET/CT may be able to provide additional characterization. 3. Possible tiny bilateral pleural effusions. 4. Moderate to large amount of ascites. This exam was performed according to our departmental dose-optimization program, which includes automated exposure control, adjustment of the mA and/or kV according to patient size and/or use of iterative reconstruction technique. Assessment & Plan - Diagnosis (1) Abdominal swelling, generalized Is this a current diagnosis for this admission?: Yes Plan: Ascites paracentesis including cytology (2) Nausea & vomiting Qualifiers: Vomiting type: cyclical vomiting Vomiting Intractability: intractable Qualified Code(s): G43.A1 - Cyclical vomiting, intractable Is this a current diagnosis for this admission?: Yes Plan: Anti-emetics as needed (3) Pleural effusion Is this a current diagnosis for this admission?: Yes Plan: Effusion and atelectasis have been stable no suspicion that this is an acute pneumonia no leukocytosis, no left shift, afebrile with little to no cough
--- NOTE | 2017-08-26 13:06 | PDOC H&P ---
History of Present Illness Admission Date/PCP: 08/25/17 18:18 VIOLETA JAVED Patient complains of: Weakness and unable to eat History of Present Illness: 61-year-old female well-known to [place] [facility] with non-small cell lung cancer being treated by Dr. Munoz. Patient complained of increasing weakness before Thanksgiving they got progressively worse she had a bronchoscopy at [facility] early May results of these is not currently available. She complains of intermittent episodes of nausea and vomiting associated with intermittent constipation and diarrhea she denies coffee-ground emesis hematemesis or bright bright red blood per rectum or melena. She has an occasional cough but this is much less significant and has been in the past. She denies fevers or chills. She has lost a large amount of weight in a short amount of timeShe has had no appetite in the last 2-1/2 months Patient's recently came to see the office couple of times with the blood work was done and increase the p.o. fluid but is still not getting better She is currently getting the immunotherapy went to see Dr conner And he felt patient was dehydrated and not looking good sent to the office and we directly admit the patient's and patient's potassium was low Patient have a CT of the chest was done was increasing some mass with possible pneumonia and the patient CT abdomen pelvis with some ascites which is new finding Past Medical History Cardiac Medical History: Reports: Atrial Fibrillation, Hyperlipidema, Hypertension Denies: Coronary Artery Disease, Myocardial Infarction Pulmonary Medical History: Reports: Asthma, Bronchitis, Chronic Obstructive Pulmonary Disease (COPD), Pneumonia, Respiratory Failure Denies: Tuberculosis EENT Medical History: Denies: Ears, Nose Neurological Medical History: Denies: Multiple Sclerosis, Seizures Endocrine Medical History: Reports: Diabetes Mellitus Type 2 - IDDM, Obesity Renal/ Medical History: Denies: Nephrolithiasis Malignancy Medical History: Reports: Breast Cancer, Lung Cancer GI Medical History: Reports: Gastroesophageal Reflux Disease Musculoskeltal Medical History: Reports: Arthritis - LEFT KNEE OSTEOARTHRITIS Denies: Gout Skin Medical History: Denies: Psoriasis Psychiatric Medical History: Denies: Depression Traumatic Medical History: Denies: Traumatic Brain Injury Hematology: Denies: Anemia, Sickle Cell Disease Infectious Medical History: Denies: Hepatitis B, Hepatitis C, HIV Past Surgical History Past Surgical History: Reports: Mastectomy - left, Other - Lung biopsy, Pleurx catheter placement and removal, thoracentesis Social History Lives with: Alone Smoking Status: Former Smoker Cigarettes Packs Per Day: 1 Number of Years Smokin Frequency of Alcohol Use: None Hx Recreational Drug Use: No Hx Prescription Drug Abuse: No - Advance Directive Resuscitation Status: Full Code Family History Family History: Reviewed & Not Pertinent, COPD, Hypertension, Other - no ca in fam known Parental Family History Reviewed: Yes Children Family History Reviewed: Yes Sibling(s) Family History Reviewed.: Yes Medication/Allergy Home Medications: Albuterol Sulfate [Proair HFA Inhalation Aerosol 8.5 gm MDI] 2 puff IH Q4HP PRN 08/25/17 Amlodipine Besylate [Norvasc 2.5 mg Tablet] 2.5 mg PO DAILY 08/25/17 Benzonatate [Tessalon Perle 100 mg Capsule] 200 mg PO QID 08/25/17 Brimonidine Tartrate [Alphagan P] 1 drop OU BID 08/25/17 Clonidine HCl [Catapres 0.1 mg Tablet] 0.1 mg PO Q8 08/25/17 Esomeprazole Mag Trihydrate [Nexium] 40 mg PO DAILY 08/25/17 Ezetimibe [Zetia 10 mg Tablet] 10 mg PO DAILY 08/25/17 Fluticasone/Salmeterol [Advair 250-50 Diskus 28 dose] 1 puff IH Q12 08/25/17 Insulin Glargine,Hum.rec.anlog [Lantus Solostar] 38 units SQ QHS 08/25/17 Insulin Lispro [Humalog Kwikpen U-100] 18 units SQ MEALS 08/25/17 Latanoprost [Xalatan] 1 drop OU QHS 08/25/17 Montelukast Sodium [Singulair 10 mg Tablet] 10 mg PO QHS 08/25/17 Ranolazine [Ranexa 500 mg Tab.sr] 500 mg PO Q12 08/25/17 Tamoxifen Citrate 20 mg PO DAILY 08/25/17 Allergies/Adverse Reactions: pravastatin [Pravastatin] Allergy (Severe, Verified 08/05/15 11:41) JOINT PAIN butorphanol tartrate [From Stadol] Allergy (Intermediate, Verified 08/05/15 11: 41) hives and itching latex [Latex] Allergy (Intermediate, Verified 08/05/15 11:41) hives and itching Sulfa (Sulfonamide Antibiotics) Allergy (Intermediate, Verified 08/05/15 11:41) giant hives and bad itching Review of Systems All systems: reviewed and no additional remarkable complaints except as stated Constitutional: PRESENT: anorexia, fatigue, weakness, weight loss. ABSENT: chills, fever(s), headache(s), weight gain Eyes: ABSENT: visual disturbances Ears: ABSENT: hearing changes Cardiovascular: ABSENT: chest pain, dyspnea on exertion, edema, orthropnea, palpitations Respiratory: ABSENT: cough, hemoptysis Gastrointestinal: ABSENT: abdominal pain, constipation, diarrhea, hematemesis, hematochezia, nausea, vomiting Genitourinary: ABSENT: dysuria, hematuria Musculoskeletal: ABSENT: joint swelling Integumentary: ABSENT: rash, wounds Neurological: ABSENT: abnormal gait, abnormal speech, confusion, dizziness, focal weakness, syncope Psychiatric: ABSENT: anxiety, depression, homidical ideation, suicidal ideation Endocrine: ABSENT: cold intolerance, heat intolerance, menstrual abnormalities, polydipsia, polyuria Hematologic/Lymphatic: ABSENT: easy bleeding, easy bruising, lymphadenopathy Physical Exam Vital Signs: Temp Pulse Resp BP Pulse Ox 98.0 F 98 17 106/66 98 08/26/17 11:46 08/26/17 11:46 08/26/17 11:46 08/26/17 11:46 08/26/17 11:46 Intake & Output 08/25/17 08/26/17 08/27/17 06:59 06:59 06:59 Intake Total 1000 Balance 1000 Weight 71.5 kg General appearance: PRESENT: no acute distress, well-developed, well-nourished Head exam: PRESENT: atraumatic, normocephalic Eye exam: PRESENT: conjunctiva pink, EOMI, PERRLA. ABSENT: scleral icterus Ear exam: PRESENT: normal external ear exam Mouth exam: PRESENT: moist, tongue midline Neck exam: PRESENT: full ROM. ABSENT: carotid bruit, JVD, lymphadenopathy, thyromegaly Respiratory exam: PRESENT: clear to auscultation darinel Cardiovascular exam: PRESENT: RRR. ABSENT: diastolic murmur, rubs, systolic murmur Pulses: PRESENT: normal dorsalis pedis pul, +2 pedal pulses bilateral Vascular exam: PRESENT: normal capillary refill GI/Abdominal exam: PRESENT: distended, normal bowel sounds, soft. ABSENT: guarding, mass, organolmegaly, rebound, tenderness Rectal exam: PRESENT: deferred Extremities exam: ABSENT: full ROM, left AKA, right AKA, left BKA, right BKA, calf tenderness, joint swelling, pedal edema, tenderness, other Musculoskeletal exam: PRESENT: ambulatory Neurological exam: PRESENT: alert, awake, oriented to person, oriented to place , oriented to time, oriented to situation, CN II-XII grossly intact. ABSENT: motor sensory deficit Psychiatric exam: PRESENT: appropriate affect, normal mood. ABSENT: homicidal ideation, suicidal ideation Skin exam: PRESENT: dry, intact, warm. ABSENT: cyanosis, rash Results Laboratory Results: 08/26/17 06:43 08/26/17 06:43 08/25/17 08/26/17 08/26/17 21:15 06:43 06:43 WBC 4.8 RBC 3.72 Hgb 11.3 L Hct 34.4 L MCV 92 MCH 30.5 MCHC 33.0 RDW 14.4 H Plt Count 211 Seg Neutrophils % 63.4 Lymphocytes % 17.9 Monocytes % 15.9 H Eosinophils % 2.4 Basophils % 0.4 Absolute Neutrophils 3.0 Absolute Lymphocytes 0.9 Absolute Monocytes 0.8 Absolute Eosinophils 0.1 Absolute Basophils 0.0 Sodium 141.5 143.0 Potassium 3.0 L* 3.8 Chloride 101 105 Carbon Dioxide 24 26 Anion Gap 17 12 BUN 16 15 Creatinine 0.93 0.88 Est GFR ( Amer) > 60 > 60 Est GFR (Non-Af Amer) > 60 > 60 Glucose 131 H 111 H Calcium 10.3 H 9.5 Magnesium 1.6 Total Bilirubin 0.6 AST 31 ALT 30 Alkaline Phosphatase 81 Total Protein 6.6 Albumin 3.5 Impressions: Abdomen/Pelvis CT 08/25/17 00:00 IMPRESSION: 1. Masslike consolidation of the right lung base. The solid portion of this consolidation measures 4.2 cm with adjacent consolidated lungs with air bronchograms. This could represent a mass with postobstructive pneumonic process of the right lower lobe. Alternatively, the entire opacity could represent pneumonic or malignant consolidation. 2. There is a 0.9 cm pleural-based pulmonary nodule in the right midlung best seen on image #28, series 4. There are also 3 nodular opacities in the right upper lung measuring approximately 0.8 cm best seen on image numbers 19 and 20. These could represent neoplastic pulmonary nodules, scarring, or postoperative change. PET/CT may be able to provide additional characterization. 3. Possible tiny bilateral pleural effusions. 4. Moderate to large amount of ascites. This exam was performed according to our departmental dose-optimization program, which includes automated exposure control, adjustment of the mA and/or kV according to patient size and/or use of iterative reconstruction technique. Chest CT 08/25/17 00:00 IMPRESSION: 1. Masslike consolidation of the right lung base. The solid portion of this consolidation measures 4.2 cm with adjacent consolidated lungs with air bronchograms. This could represent a mass with postobstructive pneumonic process of the right lower lobe. Alternatively, the entire opacity could represent pneumonic or malignant consolidation. 2. There is a 0.9 cm pleural-based pulmonary nodule in the right midlung best seen on image #28, series 4. There are also 3 nodular opacities in the right upper lung measuring approximately 0.8 cm best seen on image numbers 19 and 20. These could represent neoplastic pulmonary nodules, scarring, or postoperative change. PET/CT may be able to provide additional characterization. 3. Possible tiny bilateral pleural effusions. 4. Moderate to large amount of ascites. This exam was performed according to our departmental dose-optimization program, which includes automated exposure control, adjustment of the mA and/or kV according to patient size and/or use of iterative reconstruction technique. Assessment & Plan - Diagnosis (1) Abdominal swelling, generalized Is this a current diagnosis for this admission?: Yes Plan: With new onset of bursitis will be scheduled for paracentesis (2) Nausea & vomiting Qualifiers: Vomiting type: cyclical vomiting Vomiting Intractability: intractable Qualified Code(s): G43.A1 - Cyclical vomiting, intractable Is this a current diagnosis for this admission?: Yes Plan: Most likely due to the ascites with ongoing lung cancers will get the barium swallow study (3) Bacterial pneumonia Is this a current diagnosis for this admission?: Yes Plan: Most likely malignancy related we will start the patient on the broad-spectrum IV antibiotic and consult the pulmonary for further evaluations (4) Hypertension Qualifiers: Hypertension type: essential hypertension Qualified Code(s): I10 - Essential (primary) hypertension Is this a current diagnosis for this admission?: Yes Plan: Currently all stable (5) Malignant neoplasm of right upper lobe of lung Is this a current diagnosis for this admission?: Yes Plan: Follow-up with oncology (6) Sleep apnea Qualifiers: Sleep apnea type: unspecified type Qualified Code(s): G47.30 - Sleep apnea , unspecified Is this a current diagnosis for this admission?: Yes Plan: Uses CPAP (7) Type 2 diabetes mellitus Qualifiers: Diabetes mellitus complication status: without complication 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 All the medications discontinues the sliding scale - Time Time Spent: 30 to 50 Minutes Medications reviewed and adjusted accordingly: Yes Anticipated discharge: Other Within: Other - Inpatient Certification Medical Necessity: Need Close Monitoring Due to Risk of Patient Decompensation, Need for IV Antibiotics Post Hospital Care: D/C Welfare Aide Documentation - Plan Summary Plan Summary: Admit the patient in a telemetry bed start the all the IV antibiotics consult the pulmonary
[2017-08-26] MEDS ORDERED: LIDOCAINE 1% INJ-PF (10 MG/ML) 30 ML SDV ONE (13:31)
--- NOTE | 2017-08-26 15:03 | RADIOLOGY REPORT (SQ) ---
EXAM DESCRIPTION: U/S ABDOMEN LIMITED W/O DOP COMPLETED DATE/TIME: 08/26/2017 2:46 pm REASON FOR STUDY: ascites COMPARISON: CT abdomen pelvis 08/25/2017 PET-CT 06/05/2017 TECHNIQUE: 4 quadrant abdominal ultrasound was performed to evaluate for the pocket of ascites gloria ble to aspiration. LIMITATIONS: None. FINDINGS: Prior CT exam 08/25/2017 was reviewed. Patchy pockets of ascites are present in the abdom en and pelvis on CT with omental soft tissue worrisome for tumor. At ultrasound today, there is ascites in all 4 quadrants. However, most pockets contain bowel loops. A very far inferior right lower quadrant pocket was localized, however, this was near the hypogastr ic artery and vein in the anterior abdominal wall. No paracentesis was performed today. Findings di scussed with Dr. Moraes IMPRESSION: No ultrasound-guided paracentesis performed today. Dr. Moraes notified. TECHNICAL DOCUMENTATION: JOB ID: [id number] [employer]- All Rights Reserved
[2017-08-26] MEDS: OXYCODONE-ACETAMINOPHEN 5-325 MG TABLET PO PRN (20:25)
[2017-08-26] MEDS: MONTELUKAST SODIUM 10 MG TABLET PO SCH (21:47)
[2017-08-26] MEDS: LATANOPROST 0.005% OPH SOLN 2.5 ML OU SCH (21:47)
[2017-08-27] MEDS: POTASSI CL 40 MEQ/NS 1L 1,000 ML IV PRN ×2 (02:36→13:31)
[2017-08-27 04:48] LABS: ABSOLUTE EOSINOPHILS # (AUTO) 0.1 10^3/uL (0.0-0.6); ABSOLUTE LYMPHOCYTES (AUTO) 0.7 10^3/uL (0.5-4.7); ABSOLUTE MONOCYTES (AUTO) 0.6 10^3/uL (0.1-1.4); ABSOLUTE NEUT (AUTO) 3.3 10^3/uL (1.7-8.2); BASOPHILS % (AUTO) 0.4 % (0-2); EOSINOPHILS % (AUTO) 1.9 % (0-6); HEMATOCRIT 32.4 % (36.0-47.0); HEMOGLOBIN 10.6 g/dL (12.0-15.5); LYMPHOCYTES % (AUTO) 15.7 % (13-45); MEAN CORPUSCULAR HEMOGLOBIN 30.6 pg (27.0-33.4); MEAN CORPUSCULAR HGB CONC 32.6 g/dL (32.0-36.0); MEAN CORPUSCULAR VOLUME 94 fl (80-97); MONOCYTES % (AUTO) 13.3 % (3-13); PLATELET COUNT 180 10^3/uL (150-450); RED BLOOD COUNT 3.45 10^6/uL (3.72-5.28); RED CELL DISTRIBUTION WIDTH 14.3 % (11.5-14.0); SEGMENTED NEUTROPHILS % (AUTO) 68.7 % (42-78); TOTAL CELLS COUNTED % (AUTO) 100 %; WHITE BLOOD COUNT 4.7 10^3/uL (4.0-10.5)
[2017-08-27] MEDS: CLONIDINE HCL 0.1 MG TABLET PO SCH ×3 (05:23→22:14)
[2017-08-27] MEDS: LANSOPRAZOLE 30 MG TAB.RAP.DR PO SCH ×2 (05:23→17:01)
[2017-08-27] MEDS: IPRATROPIUM/ALBUTEROL 0.5-2.5 MG/3 ML AMPUL NEB SCH ×3 (07:41→21:06)
[2017-08-27] MEDS: AMLODIPINE BESYLATE 2.5 MG TABLET PO SCH (09:24)
[2017-08-27] MEDS: BENZONATATE 100 MG CAPSULE PO SCH ×4 (09:27→22:14)
[2017-08-27] MEDS: CEFEPIME 1 GM/D5W RTU 1 GM/50 ML RTUPB IV SCH ×2 (09:27→22:15)
[2017-08-27] MEDS: EZETIMIBE 10 MG TABLET PO SCH (09:27)
[2017-08-27] MEDS: DOCUSATE SODIUM 100 MG CAPSULE PO SCH ×2 (09:27→17:01)
[2017-08-27] MEDS: LEVOFLOXACIN 500 MG TABLET PO SCH (09:28)
[2017-08-27] MEDS: TAMOXIFEN CITRATE 10 MG TABLET PO SCH (09:28)
[2017-08-27] MEDS: FLUTICASONE/SALMETEROL DISKUS 250-50 MCG/DOSE IH SCH ×2 (09:28→22:14)
[2017-08-27] MEDS: RANOLAZINE 500 MG TAB.SR.12H PO SCH ×2 (09:28→22:14)
[2017-08-27] MEDS: GUAIFENESIN 600 MG TABLET.SA PO SCH ×2 (09:28→22:14)
[2017-08-27] MEDS: ENOXAPARIN SODIUM INJ 40 MG/0.4 ML DISP.SYRIN SUBCUT SCH (09:29)
--- NOTE | 2017-08-27 11:39 | PDOC PROGRESS REPORT ---
Subjective Progress Note for:: 08/27/17 Subjective:: Patient had a better 24 hours, she was able to eat several meals yesterday without throwing up. However she has not had a bowel movement for about 36 hours now. I reviewed the events over the last 24 hours, ultrasound-guided paracentesis was attempted, but there was not enough pocket of fluid to be able to, the ascites seemed loculated, per ultrasound criteria there is concern of carcinomatosis. Today I had a long discussion with the patient as well as her sister at bedside, they are understanding of this turn of events, this is progression of disease and we should consider alternative therapy as an outpatient. We discussed, that if she is able to eat and drink and pass stool, without any indication of obstruction, then we could consider further therapy as an outpatient. Reason For Visit: DEHYDRATION, LUNG CANCER, WT LOSS Physical Exam Vital Signs: Temp Pulse Resp BP Pulse Ox 98.4 F 110 H 22 H 119/81 100 08/27/17 08:35 08/27/17 08:35 08/27/17 08:35 08/27/17 08:35 08/27/17 08:35 Intake & Output 08/26/17 08/27/17 08/28/17 06:59 06:59 06:59 Intake Total 1000 2829 Output Total 480 Balance 1000 2349 Weight 71.5 kg 75.5 kg 75.5 kg General appearance: PRESENT: no acute distress, well-developed, well-nourished Head exam: PRESENT: atraumatic, normocephalic Eye exam: PRESENT: conjunctiva pink, EOMI, PERRLA. ABSENT: scleral icterus Ear exam: PRESENT: normal external ear exam Mouth exam: PRESENT: moist, tongue midline Neck exam: ABSENT: carotid bruit, JVD, lymphadenopathy, thyromegaly Respiratory exam: PRESENT: clear to auscultation darinel. ABSENT: rales, rhonchi, wheezes Cardiovascular exam: PRESENT: RRR. ABSENT: diastolic murmur, rubs, systolic murmur Pulses: PRESENT: normal dorsalis pedis pul Vascular exam: PRESENT: normal capillary refill GI/Abdominal exam: PRESENT: normal bowel sounds, soft. ABSENT: distended, guarding, mass, organolmegaly, rebound, tenderness Rectal exam: PRESENT: deferred Extremities exam: PRESENT: full ROM. ABSENT: calf tenderness, clubbing, pedal edema Neurological exam: PRESENT: alert, awake, oriented to person, oriented to place , oriented to time, oriented to situation, CN II-XII grossly intact. ABSENT: motor sensory deficit Psychiatric exam: PRESENT: appropriate affect, normal mood. ABSENT: homicidal ideation, suicidal ideation Skin exam: PRESENT: dry, intact, warm. ABSENT: cyanosis, rash Results Laboratory Results: 08/27/17 04:08 08/26/17 06:43 08/27/17 08/27/17 04:08 04:08 WBC 4.7 RBC 3.45 L Hgb 10.6 L Hct 32.4 L MCV 94 MCH 30.6 MCHC 32.6 RDW 14.3 H Plt Count 180 Seg Neutrophils % 68.7 Lymphocytes % 15.7 Monocytes % 13.3 H Eosinophils % 1.9 Basophils % 0.4 Absolute Neutrophils 3.3 Absolute Lymphocytes 0.7 Absolute Monocytes 0.6 Absolute Eosinophils 0.1 Absolute Basophils 0.0 Magnesium 1.5 L Impressions: Abdomen/Pelvis CT 08/25/17 00:00 IMPRESSION: 1. Masslike consolidation of the right lung base. The solid portion of this consolidation measures 4.2 cm with adjacent consolidated lungs with air bronchograms. This could represent a mass with postobstructive pneumonic process of the right lower lobe. Alternatively, the entire opacity could represent pneumonic or malignant consolidation. 2. There is a 0.9 cm pleural-based pulmonary nodule in the right midlung best seen on image #28, series 4. There are also 3 nodular opacities in the right upper lung measuring approximately 0.8 cm best seen on image numbers 19 and 20. These could represent neoplastic pulmonary nodules, scarring, or postoperative change. PET/CT may be able to provide additional characterization. 3. Possible tiny bilateral pleural effusions. 4. Moderate to large amount of ascites. This exam was performed according to our departmental dose-optimization program, which includes automated exposure control, adjustment of the mA and/or kV according to patient size and/or use of iterative reconstruction technique. Chest CT 08/25/17 00:00 IMPRESSION: 1. Masslike consolidation of the right lung base. The solid portion of this consolidation measures 4.2 cm with adjacent consolidated lungs with air bronchograms. This could represent a mass with postobstructive pneumonic process of the right lower lobe. Alternatively, the entire opacity could represent pneumonic or malignant consolidation. 2. There is a 0.9 cm pleural-based pulmonary nodule in the right midlung best seen on image #28, series 4. There are also 3 nodular opacities in the right upper lung measuring approximately 0.8 cm best seen on image numbers 19 and 20. These could represent neoplastic pulmonary nodules, scarring, or postoperative change. PET/CT may be able to provide additional characterization. 3. Possible tiny bilateral pleural effusions. 4. Moderate to large amount of ascites. This exam was performed according to our departmental dose-optimization program, which includes automated exposure control, adjustment of the mA and/or kV according to patient size and/or use of iterative reconstruction technique. Abdomen Ultrasound 08/26/17 08:22 IMPRESSION: No ultrasound-guided paracentesis performed today. Dr. Moraes notified. 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 I still believe she could be of appropriate performance status for this, she should be able to get back on her feet. (3) Bacterial pneumonia Is this a current diagnosis for this admission?: Yes - Time Time Spent with patient: 35 or more minutes Total Critical Time (Minutes): 45 - Had long discussion, patient and family understand Medications reviewed and adjusted accordingly: Yes - Inpatient Certification Based on my medical assessment, after consideration of the patient's comorbidities, presenting symptoms, or acuity I expect that the services needed warrant INPATIENT care.: Yes I certify that my determination is in accordance with my understanding of Medicare's requirements for reasonable and necessary INPATIENT services [42 CFR 412.3e].: Yes Medical Necessity: Need Close Monitoring Due to Risk of Patient Decompensation, Need For IV Fluids, Need For Continuous Telemetry Monitoring
[2017-08-27] MEDS ORDERED: POLYETHYLENE GLYCOL 3350 POWDER 17 GM/1 PACKET PO PRN (11:48)
--- NOTE | 2017-08-27 11:53 | PDOC PROGRESS REPORT ---
Subjective Progress Note for:: 08/27/17 Subjective:: Patient and nursing staff reported issue of urinary retention earlier today and a post catheterization volume over 400 ml. She reported intermittent episodes of constipation and diarrhea but more recently of former. She is currently on opiate pain management. She denied any recent nausea, vomiting, or abdominal pain. No chest pain or difficulty with breathing. Remain on IV fluid support and antibiotic coverage. Reason For Visit: DEHYDRATION, LUNG CANCER, WT LOSS Physical Exam Vital Signs: Temp Pulse Resp BP Pulse Ox 98.4 F 110 H 22 H 119/81 100 08/27/17 08:35 08/27/17 08:35 08/27/17 08:35 08/27/17 08:35 08/27/17 08:35 Intake & Output 08/26/17 08/27/17 08/28/17 06:59 06:59 06:59 Intake Total 1000 2829 Output Total 480 Balance 1000 2349 Weight 71.5 kg 75.5 kg 75.5 kg General appearance: PRESENT: no acute distress, well-developed, well-nourished Head exam: PRESENT: atraumatic, normocephalic Mouth exam: PRESENT: moist Respiratory exam: PRESENT: clear to auscultation darinel, decreased breath sounds - at lug bases. Cardiovascular exam: PRESENT: RRR. ABSENT: diastolic murmur, rubs, systolic murmur GI/Abdominal exam: PRESENT: normal bowel sounds, soft. ABSENT: distended, guarding, mass, organolmegaly, rebound, tenderness Extremities exam: ABSENT: pedal edema Musculoskeletal exam: PRESENT: normal inspection Neurological exam: PRESENT: alert, awake, oriented to person, oriented to place , oriented to time, oriented to situation, CN II-XII grossly intact. ABSENT: motor sensory deficit Psychiatric exam: PRESENT: appropriate affect, normal mood. ABSENT: homicidal ideation, suicidal ideation Skin exam: PRESENT: dry, intact, warm. ABSENT: cyanosis, rash Results Laboratory Results: 08/27/17 04:08 08/26/17 06:43 08/27/17 08/27/17 04:08 04:08 WBC 4.7 RBC 3.45 L Hgb 10.6 L Hct 32.4 L MCV 94 MCH 30.6 MCHC 32.6 RDW 14.3 H Plt Count 180 Seg Neutrophils % 68.7 Lymphocytes % 15.7 Monocytes % 13.3 H Eosinophils % 1.9 Basophils % 0.4 Absolute Neutrophils 3.3 Absolute Lymphocytes 0.7 Absolute Monocytes 0.6 Absolute Eosinophils 0.1 Absolute Basophils 0.0 Magnesium 1.5 L Impressions: Abdomen/Pelvis CT 08/25/17 00:00 IMPRESSION: 1. Masslike consolidation of the right lung base. The solid portion of this consolidation measures 4.2 cm with adjacent consolidated lungs with air bronchograms. This could represent a mass with postobstructive pneumonic process of the right lower lobe. Alternatively, the entire opacity could represent pneumonic or malignant consolidation. 2. There is a 0.9 cm pleural-based pulmonary nodule in the right midlung best seen on image #28, series 4. There are also 3 nodular opacities in the right upper lung measuring approximately 0.8 cm best seen on image numbers 19 and 20. These could represent neoplastic pulmonary nodules, scarring, or postoperative change. PET/CT may be able to provide additional characterization. 3. Possible tiny bilateral pleural effusions. 4. Moderate to large amount of ascites. This exam was performed according to our departmental dose-optimization program, which includes automated exposure control, adjustment of the mA and/or kV according to patient size and/or use of iterative reconstruction technique. Chest CT 08/25/17 00:00 IMPRESSION: 1. Masslike consolidation of the right lung base. The solid portion of this consolidation measures 4.2 cm with adjacent consolidated lungs with air bronchograms. This could represent a mass with postobstructive pneumonic process of the right lower lobe. Alternatively, the entire opacity could represent pneumonic or malignant consolidation. 2. There is a 0.9 cm pleural-based pulmonary nodule in the right midlung best seen on image #28, series 4. There are also 3 nodular opacities in the right upper lung measuring approximately 0.8 cm best seen on image numbers 19 and 20. These could represent neoplastic pulmonary nodules, scarring, or postoperative change. PET/CT may be able to provide additional characterization. 3. Possible tiny bilateral pleural effusions. 4. Moderate to large amount of ascites. This exam was performed according to our departmental dose-optimization program, which includes automated exposure control, adjustment of the mA and/or kV according to patient size and/or use of iterative reconstruction technique. Abdomen Ultrasound 08/26/17 08:22 IMPRESSION: No ultrasound-guided paracentesis performed today. Dr. Moraes notified. Assessment & Plan - Diagnosis (1) Bacterial pneumonia Is this a current diagnosis for this admission?: Yes Plan: Continue Cefepime and Levofloxacin coverage for possible post obstructive bacterial pneumonia involving right lower lobe. (2) Malignant neoplasm of right upper lobe of lung Is this a current diagnosis for this admission?: Yes Plan: see covering attending physician orders. retail wireless sales consultant input appreciated. (3) Constipation Qualifiers: Constipation type: drug induced constipation Qualified Code(s): K59.03 - Drug induced constipation Is this a current diagnosis for this admission?: Yes Plan: Probably related to opiate usage for pain management. Start on Colace 200 mg po qhs. She will receive soap/sub enema later today. Possible cause of her acute urinary retention issue. (4) Acute urinary retention Is this a current diagnosis for this admission?: Yes Plan: See covering attending physician orders. She will remain on intermittent straight catheterization. Continue all current medication management. (5) Hypertension Qualifiers: Hypertension type: essential hypertension Qualified Code(s): I10 - Essential (primary) hypertension Is this a current diagnosis for this admission?: Yes Plan: See covering attending physician orders. Continue all current medication management. (6) Type 2 diabetes mellitus Qualifiers: Diabetes mellitus complication status: without complication Diabetes mellitus half-way insulin use: without half-way use Qualified Code(s): E11.9 - Type 2 diabetes mellitus without complications Is this a current diagnosis for this admission?: Yes Plan: See covering attending physician orders. Continue all current medication management. (7) Hypomagnesemia Is this a current diagnosis for this admission?: Yes Plan: See covering attending physician orders. Continue all current medication management. - Time Time Spent with patient: 25-34 minutes Medications reviewed and adjusted accordingly: Yes Anticipated discharge: Home with Homehealth Within: Other - Inpatient Certification Based on my medical assessment, after consideration of the patient's comorbidities, presenting symptoms, or acuity I expect that the services needed warrant INPATIENT care.: Yes I certify that my determination is in accordance with my understanding of Medicare's requirements for reasonable and necessary INPATIENT services [42 CFR 412.3e].: Yes Medical Necessity: Need Close Monitoring Due to Risk of Patient Decompensation, Need For IV Fluids, Need For Continuous Telemetry Monitoring, Need for IV Antibiotics, Risk of Complication if Not Cared For in Hospital Post Hospital Care: D/C Change Number Operator Documentation - Plan Summary Plan Summary: As noted above. Patient will receive magnesium replacement therapy. See covering attending physician orders. Continue all current medication management.
[2017-08-27] MEDS ORDERED: MAGNESIUM SULFATE/D5W 1 GM/100 ML RTUPB IV ONE (13:30)
[2017-08-27] MEDS: SENNOSIDES/DOCUSATE 8.6-50 MG 1 EACH TABLET PO SCH (17:01)
[2017-08-27] MEDS: OXYCODONE-ACETAMINOPHEN 5-325 MG TABLET PO PRN (19:46)
[2017-08-27] MEDS: MONTELUKAST SODIUM 10 MG TABLET PO SCH (22:14)
[2017-08-27] MEDS: LATANOPROST 0.005% OPH SOLN 2.5 ML OU SCH (22:14)
[2017-08-28] MEDS: POTASSI CL 40 MEQ/NS 1L 1,000 ML IV PRN ×2 (02:36→13:36)
[2017-08-28 05:46] LABS: ABSOLUTE EOSINOPHILS # (AUTO) 0.1 10^3/uL (0.0-0.6); ABSOLUTE LYMPHOCYTES (AUTO) 0.7 10^3/uL (0.5-4.7); ABSOLUTE MONOCYTES (AUTO) 0.6 10^3/uL (0.1-1.4); ABSOLUTE NEUT (AUTO) 3.3 10^3/uL (1.7-8.2); BASOPHILS % (AUTO) 0.5 % (0-2); HEMATOCRIT 32.3 % (36.0-47.0); HEMOGLOBIN 10.7 g/dL (12.0-15.5); LYMPHOCYTES % (AUTO) 14.7 % (13-45); MEAN CORPUSCULAR HEMOGLOBIN 30.8 pg (27.0-33.4); MEAN CORPUSCULAR HGB CONC 33.1 g/dL (32.0-36.0); MEAN CORPUSCULAR VOLUME 93 fl (80-97); MONOCYTES % (AUTO) 13.6 % (3-13); PLATELET COUNT 192 10^3/uL (150-450); RED BLOOD COUNT 3.47 10^6/uL (3.72-5.28); RED CELL DISTRIBUTION WIDTH 14.8 % (11.5-14.0); SEGMENTED NEUTROPHILS % (AUTO) 69.2 % (42-78); TOTAL CELLS COUNTED % (AUTO) 100 %; WHITE BLOOD COUNT 4.7 10^3/uL (4.0-10.5)
[2017-08-28] MEDS: LANSOPRAZOLE 30 MG TAB.RAP.DR PO SCH ×2 (06:35→17:25)
[2017-08-28] MEDS: CLONIDINE HCL 0.1 MG TABLET PO SCH ×3 (06:35→22:43)
[2017-08-28] MEDS: OXYCODONE-ACETAMINOPHEN 5-325 MG TABLET PO PRN (07:48)
[2017-08-28] MEDS: IPRATROPIUM/ALBUTEROL 0.5-2.5 MG/3 ML AMPUL NEB SCH ×3 (07:57→21:16)
[2017-08-28 09:39] LABS: ANION GAP 9 (5-19); BLOOD UREA NITROGEN 10 mg/dL (7-20); CALCIUM 7.8 mg/dL (8.4-10.2); CARBON DIOXIDE 21 mmol/L (22-30); CHLORIDE 109 mmol/L (98-107); GLUCOSE 111 mg/dL (75-110); SODIUM 138.9 mmol/L (137-145)
[2017-08-28] MEDS: FLUTICASONE/SALMETEROL DISKUS 250-50 MCG/DOSE IH SCH ×2 (09:44→22:44)
[2017-08-28] MEDS: RANOLAZINE 500 MG TAB.SR.12H PO SCH ×2 (09:44→22:45)
[2017-08-28] MEDS: LEVOFLOXACIN 500 MG TABLET PO SCH (09:44)
[2017-08-28] MEDS: AMLODIPINE BESYLATE 2.5 MG TABLET PO SCH (09:44)
[2017-08-28] MEDS: CEFEPIME 1 GM/D5W RTU 1 GM/50 ML RTUPB IV SCH ×2 (09:44→22:43)
[2017-08-28] MEDS: DOCUSATE SODIUM 100 MG CAPSULE PO SCH ×2 (09:45→17:25)
[2017-08-28] MEDS: EZETIMIBE 10 MG TABLET PO SCH (09:45)
[2017-08-28] MEDS: TAMOXIFEN CITRATE 10 MG TABLET PO SCH (09:45)
[2017-08-28] MEDS: BENZONATATE 100 MG CAPSULE PO SCH ×4 (09:45→22:42)
[2017-08-28] MEDS: GUAIFENESIN 600 MG TABLET.SA PO SCH ×2 (09:45→22:43)
[2017-08-28] MEDS: SENNOSIDES/DOCUSATE 8.6-50 MG 1 EACH TABLET PO SCH ×2 (09:45→17:25)
[2017-08-28] MEDS: ENOXAPARIN SODIUM INJ 40 MG/0.4 ML DISP.SYRIN SUBCUT SCH (09:45)
--- NOTE | 2017-08-28 10:58 | PDOC PROGRESS REPORT ---
Subjective Progress Note for:: 08/28/17 Subjective:: Patient is doing well this morning, she is able to do a little bit with physical therapy yesterday, she is not vomiting any further, she is keeping down a full diet over the last 24 hours, enema was successful for a bowel movement and she had a small bowel movement this morning. Reason For Visit: DEHYDRATION, LUNG CANCER, WT LOSS Physical Exam Vital Signs: Temp Pulse Resp BP Pulse Ox 98.5 F 97 21 H 109/70 99 08/28/17 07:44 08/28/17 07:44 08/28/17 07:44 08/28/17 07:44 08/28/17 07:44 Intake & Output 08/27/17 08/28/17 08/29/17 06:59 06:59 06:59 Intake Total 2829 2800 Output Total 480 400 Balance 2349 2400 Weight 75.5 kg 78 kg General appearance: PRESENT: no acute distress, well-developed, well-nourished Head exam: PRESENT: atraumatic, normocephalic Eye exam: PRESENT: conjunctiva pink, EOMI, PERRLA. ABSENT: scleral icterus Ear exam: PRESENT: normal external ear exam Mouth exam: PRESENT: moist, tongue midline Neck exam: ABSENT: carotid bruit, JVD, lymphadenopathy, thyromegaly Respiratory exam: PRESENT: clear to auscultation darinel. ABSENT: rales, rhonchi, wheezes Cardiovascular exam: PRESENT: RRR. ABSENT: diastolic murmur, rubs, systolic murmur Pulses: PRESENT: normal dorsalis pedis pul Vascular exam: PRESENT: normal capillary refill GI/Abdominal exam: PRESENT: normal bowel sounds, soft. ABSENT: distended, guarding, mass, organolmegaly, rebound, tenderness Rectal exam: PRESENT: deferred Extremities exam: PRESENT: full ROM. ABSENT: calf tenderness, clubbing, pedal edema Neurological exam: PRESENT: alert, awake, oriented to person, oriented to place , oriented to time, oriented to situation, CN II-XII grossly intact. ABSENT: motor sensory deficit Psychiatric exam: PRESENT: appropriate affect, normal mood. ABSENT: homicidal ideation, suicidal ideation Skin exam: PRESENT: dry, intact, warm. ABSENT: cyanosis, rash Results Laboratory Results: 08/28/17 04:25 08/28/17 08:39 08/28/17 08/28/17 08/28/17 04:25 04:25 08:39 WBC 4.7 RBC 3.47 L Hgb 10.7 L Hct 32.3 L MCV 93 MCH 30.8 MCHC 33.1 RDW 14.8 H Plt Count 192 Seg Neutrophils % 69.2 Lymphocytes % 14.7 Monocytes % 13.6 H Eosinophils % 2.0 Basophils % 0.5 Absolute Neutrophils 3.3 Absolute Lymphocytes 0.7 Absolute Monocytes 0.6 Absolute Eosinophils 0.1 Absolute Basophils 0.0 Sodium 138.9 Potassium 5.0 Chloride 109 H Carbon Dioxide 21 L Anion Gap 9 BUN 10 Creatinine 0.71 Est GFR ( Amer) > 60 Est GFR (Non-Af Amer) > 60 Glucose 111 H Calcium 7.8 L Magnesium 1.6 08/26/17 16:00 Clean Catch Midstream Urine Culture - Final NO GROWTH 2 DAYS Impressions: Abdomen/Pelvis CT 08/25/17 00:00 IMPRESSION: 1. Masslike consolidation of the right lung base. The solid portion of this consolidation measures 4.2 cm with adjacent consolidated lungs with air bronchograms. This could represent a mass with postobstructive pneumonic process of the right lower lobe. Alternatively, the entire opacity could represent pneumonic or malignant consolidation. 2. There is a 0.9 cm pleural-based pulmonary nodule in the right midlung best seen on image #28, series 4. There are also 3 nodular opacities in the right upper lung measuring approximately 0.8 cm best seen on image numbers 19 and 20. These could represent neoplastic pulmonary nodules, scarring, or postoperative change. PET/CT may be able to provide additional characterization. 3. Possible tiny bilateral pleural effusions. 4. Moderate to large amount of ascites. This exam was performed according to our departmental dose-optimization program, which includes automated exposure control, adjustment of the mA and/or kV according to patient size and/or use of iterative reconstruction technique. Chest CT 08/25/17 00:00 IMPRESSION: 1. Masslike consolidation of the right lung base. The solid portion of this consolidation measures 4.2 cm with adjacent consolidated lungs with air bronchograms. This could represent a mass with postobstructive pneumonic process of the right lower lobe. Alternatively, the entire opacity could represent pneumonic or malignant consolidation. 2. There is a 0.9 cm pleural-based pulmonary nodule in the right midlung best seen on image #28, series 4. There are also 3 nodular opacities in the right upper lung measuring approximately 0.8 cm best seen on image numbers 19 and 20. These could represent neoplastic pulmonary nodules, scarring, or postoperative change. PET/CT may be able to provide additional characterization. 3. Possible tiny bilateral pleural effusions. 4. Moderate to large amount of ascites. This exam was performed according to our departmental dose-optimization program, which includes automated exposure control, adjustment of the mA and/or kV according to patient size and/or use of iterative reconstruction technique. Abdomen Ultrasound 08/26/17 08:22 IMPRESSION: No ultrasound-guided paracentesis performed today. Dr. Moraes notified. Assessment & Plan - Diagnosis (1) Nausea & vomiting Qualifiers: Vomiting type: cyclical vomiting Vomiting Intractability: intractable Qualified Code(s): G43.A1 - Cyclical vomiting, intractable Is this a current diagnosis for this admission?: Yes Plan: Multifactorial but partly secondary to carcinomatosis, seems to be improved, fully that will continue. Continue with hydration and current management. (2) Malignant neoplasm of right upper lobe of lung Is this a current diagnosis for this admission?: Yes Plan: Further therapy planned as an outpatient (3) Bacterial pneumonia Is this a current diagnosis for this admission?: Yes Plan: Continue with antibiotics at present - Time Time Spent with patient: 15-24 minutes Total Critical Time (Minutes): 25 Medications reviewed and adjusted accordingly: Yes - Inpatient Certification Based on my medical assessment, after consideration of the patient's comorbidities, presenting symptoms, or acuity I expect that the services needed warrant INPATIENT care.: Yes I certify that my determination is in accordance with my understanding of Medicare's requirements for reasonable and necessary INPATIENT services [42 CFR 412.3e].: Yes Medical Necessity: Need For IV Fluids, Need For Continuous Telemetry Monitoring , Need for IV Antibiotics
--- NOTE | 2017-08-28 11:45 | PDOC PROGRESS REPORT ---
Subjective Progress Note for:: 08/28/17 Subjective:: Patient reported satisfactory bowel movement since last clinical evaluation. Able to urinate without any problem thereafter. No nausea, vomiting, or abdominal pain. No fever or chills. No chest pain or difficulty with breathing. Reason For Visit: DEHYDRATION, LUNG CANCER, WT LOSS Physical Exam Vital Signs: Temp Pulse Resp BP Pulse Ox 98.5 F 97 21 H 109/70 99 08/28/17 07:44 08/28/17 07:44 08/28/17 07:44 08/28/17 07:44 08/28/17 07:44 Intake & Output 08/27/17 08/28/17 08/29/17 06:59 06:59 06:59 Intake Total 2829 2800 Output Total 480 400 Balance 2349 2400 Weight 75.5 kg 78 kg Physical Exam: General appearance: PRESENT: no acute distress, well-developed, well-nourished Head exam: PRESENT: atraumatic, normocephalic Mouth exam: PRESENT: moist Respiratory exam: PRESENT: clear to auscultation darinel, decreased breath sounds - at lug bases. Cardiovascular exam: PRESENT: RRR. ABSENT: diastolic murmur, rubs, systolic murmur GI/Abdominal exam: PRESENT: normal bowel sounds, soft. ABSENT: distended, guarding, mass, organomegaly, rebound, tenderness Extremities exam: ABSENT: pedal edema Musculoskeletal exam: PRESENT: normal inspection Neurological exam: PRESENT: alert, awake, oriented to person, oriented to place , oriented to time, oriented to situation, CN II-XII grossly intact. ABSENT: motor sensory deficit Psychiatric exam: PRESENT: appropriate affect, normal mood. ABSENT: homicidal ideation, suicidal ideation Skin exam: PRESENT: dry, intact, warm. ABSENT: cyanosis, rash Results Laboratory Results: 08/28/17 04:25 08/28/17 08:39 08/28/17 08/28/17 08/28/17 04:25 04:25 08:39 WBC 4.7 RBC 3.47 L Hgb 10.7 L Hct 32.3 L MCV 93 MCH 30.8 MCHC 33.1 RDW 14.8 H Plt Count 192 Seg Neutrophils % 69.2 Lymphocytes % 14.7 Monocytes % 13.6 H Eosinophils % 2.0 Basophils % 0.5 Absolute Neutrophils 3.3 Absolute Lymphocytes 0.7 Absolute Monocytes 0.6 Absolute Eosinophils 0.1 Absolute Basophils 0.0 Sodium 138.9 Potassium 5.0 Chloride 109 H Carbon Dioxide 21 L Anion Gap 9 BUN 10 Creatinine 0.71 Est GFR ( Amer) > 60 Est GFR (Non-Af Amer) > 60 Glucose 111 H Calcium 7.8 L Magnesium 1.6 08/26/17 16:00 Clean Catch Midstream Urine Culture - Final NO GROWTH 2 DAYS Impressions: Abdomen/Pelvis CT 08/25/17 00:00 IMPRESSION: 1. Masslike consolidation of the right lung base. The solid portion of this consolidation measures 4.2 cm with adjacent consolidated lungs with air bronchograms. This could represent a mass with postobstructive pneumonic process of the right lower lobe. Alternatively, the entire opacity could represent pneumonic or malignant consolidation. 2. There is a 0.9 cm pleural-based pulmonary nodule in the right midlung best seen on image #28, series 4. There are also 3 nodular opacities in the right upper lung measuring approximately 0.8 cm best seen on image numbers 19 and 20. These could represent neoplastic pulmonary nodules, scarring, or postoperative change. PET/CT may be able to provide additional characterization. 3. Possible tiny bilateral pleural effusions. 4. Moderate to large amount of ascites. This exam was performed according to our departmental dose-optimization program, which includes automated exposure control, adjustment of the mA and/or kV according to patient size and/or use of iterative reconstruction technique. Chest CT 08/25/17 00:00 IMPRESSION: 1. Masslike consolidation of the right lung base. The solid portion of this consolidation measures 4.2 cm with adjacent consolidated lungs with air bronchograms. This could represent a mass with postobstructive pneumonic process of the right lower lobe. Alternatively, the entire opacity could represent pneumonic or malignant consolidation. 2. There is a 0.9 cm pleural-based pulmonary nodule in the right midlung best seen on image #28, series 4. There are also 3 nodular opacities in the right upper lung measuring approximately 0.8 cm best seen on image numbers 19 and 20. These could represent neoplastic pulmonary nodules, scarring, or postoperative change. PET/CT may be able to provide additional characterization. 3. Possible tiny bilateral pleural effusions. 4. Moderate to large amount of ascites. This exam was performed according to our departmental dose-optimization program, which includes automated exposure control, adjustment of the mA and/or kV according to patient size and/or use of iterative reconstruction technique. Abdomen Ultrasound 08/26/17 08:22 IMPRESSION: No ultrasound-guided paracentesis performed today. Dr. Moraes notified. Assessment & Plan - Diagnosis (1) Bacterial pneumonia Is this a current diagnosis for this admission?: Yes (2) Malignant neoplasm of right upper lobe of lung Is this a current diagnosis for this admission?: Yes (3) Constipation Qualifiers: Constipation type: drug induced constipation Qualified Code(s): K59.03 - Drug induced constipation Is this a current diagnosis for this admission?: Yes (4) Acute urinary retention Is this a current diagnosis for this admission?: Yes (5) Hypertension Qualifiers: Hypertension type: essential hypertension Qualified Code(s): I10 - Essential (primary) hypertension Is this a current diagnosis for this admission?: Yes (6) Type 2 diabetes mellitus Qualifiers: Diabetes mellitus complication status: without complication Diabetes mellitus ferry terminal agent insulin use: without prison use Qualified Code(s): E11.9 - Type 2 diabetes mellitus without complications Is this a current diagnosis for this admission?: Yes (7) Hypomagnesemia Is this a current diagnosis for this admission?: Yes - Time Time Spent with patient: 25-34 minutes Medications reviewed and adjusted accordingly: Yes Anticipated discharge: Home with Homehealth Within: Other - Inpatient Certification Based on my medical assessment, after consideration of the patient's comorbidities, presenting symptoms, or acuity I expect that the services needed warrant INPATIENT care.: Yes I certify that my determination is in accordance with my understanding of Medicare's requirements for reasonable and necessary INPATIENT services [42 CFR 412.3e].: Yes Medical Necessity: Need Close Monitoring Due to Risk of Patient Decompensation, Need For IV Fluids, Need For Continuous Telemetry Monitoring, Need for IV Antibiotics, Risk of Complication if Not Cared For in Hospital Post Hospital Care: D/C Customer Care Specialist Documentation - Plan Summary Plan Summary: See covering attending physician orders.
[2017-08-28] MEDS ORDERED: MAGNESIUM SULFATE/D5W 1 GM/100 ML RTUPB IV ONE (14:30)
[2017-08-28] MEDS: MONTELUKAST SODIUM 10 MG TABLET PO SCH (22:42)
[2017-08-28] MEDS: LATANOPROST 0.005% OPH SOLN 2.5 ML OU SCH (22:45)
[2017-08-29] MEDS: POTASSI CL 40 MEQ/NS 1L 1,000 ML IV PRN ×2 (02:07→18:59)
[2017-08-29] MEDS: CLONIDINE HCL 0.1 MG TABLET PO SCH ×3 (05:38→23:01)
[2017-08-29] MEDS: LANSOPRAZOLE 30 MG TAB.RAP.DR PO SCH ×2 (05:38→18:30)
[2017-08-29 06:52] LABS: ABSOLUTE LYMPHOCYTES (AUTO) 0.7 10^3/uL (0.5-4.7); ABSOLUTE MONOCYTES (AUTO) 0.7 10^3/uL (0.1-1.4); ABSOLUTE NEUT (AUTO) 4.8 10^3/uL (1.7-8.2); BASOPHILS % (AUTO) 0.4 % (0-2); EOSINOPHILS % (AUTO) 0.6 % (0-6); HEMATOCRIT 34.7 % (36.0-47.0); HEMOGLOBIN 11.3 g/dL (12.0-15.5); LYMPHOCYTES % (AUTO) 11.7 % (13-45); MEAN CORPUSCULAR HEMOGLOBIN 30.4 pg (27.0-33.4); MEAN CORPUSCULAR HGB CONC 32.7 g/dL (32.0-36.0); MEAN CORPUSCULAR VOLUME 93 fl (80-97); MONOCYTES % (AUTO) 10.6 % (3-13); PLATELET COUNT 209 10^3/uL (150-450); RED BLOOD COUNT 3.73 10^6/uL (3.72-5.28); RED CELL DISTRIBUTION WIDTH 14.8 % (11.5-14.0); SEGMENTED NEUTROPHILS % (AUTO) 76.7 % (42-78); TOTAL CELLS COUNTED % (AUTO) 100 %; WHITE BLOOD COUNT 6.2 10^3/uL (4.0-10.5)
[2017-08-29 07:30] LABS: ANION GAP 11 (5-19); BLOOD UREA NITROGEN 8 mg/dL (7-20); CARBON DIOXIDE 20 mmol/L (22-30); CHLORIDE 108 mmol/L (98-107); GLUCOSE 125 mg/dL (75-110); MAGNESIUM 1.7 mg/dL (1.6-2.3)
[2017-08-29] MEDS: IPRATROPIUM/ALBUTEROL 0.5-2.5 MG/3 ML AMPUL NEB SCH ×3 (08:34→20:12)
[2017-08-29] MEDS: SENNOSIDES/DOCUSATE 8.6-50 MG 1 EACH TABLET PO SCH (10:17)
[2017-08-29] MEDS: DOCUSATE SODIUM 100 MG CAPSULE PO SCH (10:17)
[2017-08-29] MEDS: TAMOXIFEN CITRATE 10 MG TABLET PO SCH (10:49)
[2017-08-29] MEDS: BENZONATATE 100 MG CAPSULE PO SCH ×4 (10:49→23:02)
[2017-08-29] MEDS: LEVOFLOXACIN 500 MG TABLET PO SCH (10:49)
[2017-08-29] MEDS: GUAIFENESIN 600 MG TABLET.SA PO SCH ×2 (10:49→23:01)
[2017-08-29] MEDS: CEFEPIME 1 GM/D5W RTU 1 GM/50 ML RTUPB IV SCH ×2 (10:49→23:02)
[2017-08-29] MEDS: EZETIMIBE 10 MG TABLET PO SCH (10:49)
[2017-08-29] MEDS: RANOLAZINE 500 MG TAB.SR.12H PO SCH ×2 (10:49→23:01)
[2017-08-29] MEDS: AMLODIPINE BESYLATE 2.5 MG TABLET PO SCH (10:49)
[2017-08-29] MEDS: FLUTICASONE/SALMETEROL DISKUS 250-50 MCG/DOSE IH SCH ×2 (10:49→23:02)
[2017-08-29] MEDS: ENOXAPARIN SODIUM INJ 40 MG/0.4 ML DISP.SYRIN SUBCUT SCH (11:00)
--- NOTE | 2017-08-29 15:16 | PDOC PROGRESS REPORT ---
Subjective Progress Note for:: 08/29/17 Subjective:: Patient reported episodes of nausea, vomiting, abdominal pain, and several episodes of diarrhea so far today. Nursing staff expressed concern for C. difficile toxin colitis. She remain on IV antibiotic coverage. No fever or chills. She denied any chest pain. Continue to experience SOB with exertion. Reason For Visit: DEHYDRATION, LUNG CANCER, WT LOSS Physical Exam Vital Signs: Temp Pulse Resp BP Pulse Ox 98.5 F 113 H 20 133/80 H 99 08/29/17 12:42 08/29/17 14:00 08/29/17 12:42 08/29/17 12:42 08/29/17 12:42 Intake & Output 08/28/17 08/29/17 08/30/17 06:59 06:59 06:59 Intake Total 2800 2336 Output Total 400 Balance 2400 2336 Weight 78 kg 78 kg Physical Exam: General appearance: PRESENT: no acute distress, well-developed, well-nourished Head exam: PRESENT: atraumatic, normocephalic Mouth exam: PRESENT: moist Respiratory exam: PRESENT: clear to auscultation darinel, decreased breath sounds - at lug bases. Cardiovascular exam: PRESENT: RRR. ABSENT: diastolic murmur, rubs, systolic murmur GI/Abdominal exam: PRESENT: normal bowel sounds, soft. ABSENT: distended, guarding, mass, organomegaly, rebound, tenderness Extremities exam: ABSENT: pedal edema Musculoskeletal exam: PRESENT: normal inspection Neurological exam: PRESENT: alert, awake, oriented to person, oriented to place , oriented to time, oriented to situation, CN II-XII grossly intact. ABSENT: motor sensory deficit Psychiatric exam: PRESENT: appropriate affect, normal mood. ABSENT: homicidal ideation, suicidal ideation Skin exam: PRESENT: dry, intact, warm. ABSENT: cyanosis, rash Results Laboratory Results: 08/29/17 06:35 08/29/17 06:35 08/29/17 08/29/17 06:35 06:35 WBC 6.2 RBC 3.73 Hgb 11.3 L Hct 34.7 L MCV 93 MCH 30.4 MCHC 32.7 RDW 14.8 H Plt Count 209 Seg Neutrophils % 76.7 Lymphocytes % 11.7 L Monocytes % 10.6 Eosinophils % 0.6 Basophils % 0.4 Absolute Neutrophils 4.8 Absolute Lymphocytes 0.7 Absolute Monocytes 0.7 Absolute Eosinophils 0.0 Absolute Basophils 0.0 Sodium 139.0 Potassium 5.0 Chloride 108 H Carbon Dioxide 20 L Anion Gap 11 BUN 8 Creatinine 0.68 Est GFR ( Amer) > 60 Est GFR (Non-Af Amer) > 60 Glucose 125 H Calcium 8.0 L Magnesium 1.7 08/26/17 16:00 Clean Catch Midstream Urine Culture - Final NO GROWTH 2 DAYS Impressions: Abdomen/Pelvis CT 08/25/17 00:00 IMPRESSION: 1. Masslike consolidation of the right lung base. The solid portion of this consolidation measures 4.2 cm with adjacent consolidated lungs with air bronchograms. This could represent a mass with postobstructive pneumonic process of the right lower lobe. Alternatively, the entire opacity could represent pneumonic or malignant consolidation. 2. There is a 0.9 cm pleural-based pulmonary nodule in the right midlung best seen on image #28, series 4. There are also 3 nodular opacities in the right upper lung measuring approximately 0.8 cm best seen on image numbers 19 and 20. These could represent neoplastic pulmonary nodules, scarring, or postoperative change. PET/CT may be able to provide additional characterization. 3. Possible tiny bilateral pleural effusions. 4. Moderate to large amount of ascites. This exam was performed according to our departmental dose-optimization program, which includes automated exposure control, adjustment of the mA and/or kV according to patient size and/or use of iterative reconstruction technique. Chest CT 08/25/17 00:00 IMPRESSION: 1. Masslike consolidation of the right lung base. The solid portion of this consolidation measures 4.2 cm with adjacent consolidated lungs with air bronchograms. This could represent a mass with postobstructive pneumonic process of the right lower lobe. Alternatively, the entire opacity could represent pneumonic or malignant consolidation. 2. There is a 0.9 cm pleural-based pulmonary nodule in the right midlung best seen on image #28, series 4. There are also 3 nodular opacities in the right upper lung measuring approximately 0.8 cm best seen on image numbers 19 and 20. These could represent neoplastic pulmonary nodules, scarring, or postoperative change. PET/CT may be able to provide additional characterization. 3. Possible tiny bilateral pleural effusions. 4. Moderate to large amount of ascites. This exam was performed according to our departmental dose-optimization program, which includes automated exposure control, adjustment of the mA and/or kV according to patient size and/or use of iterative reconstruction technique. Abdomen Ultrasound 08/26/17 08:22 IMPRESSION: No ultrasound-guided paracentesis performed today. Dr. Moraes notified. Assessment & Plan - Diagnosis (1) Bacterial pneumonia Is this a current diagnosis for this admission?: Yes (2) Malignant neoplasm of right upper lobe of lung Is this a current diagnosis for this admission?: Yes (3) Constipation Qualifiers: Constipation type: drug induced constipation Qualified Code(s): K59.03 - Drug induced constipation Is this a current diagnosis for this admission?: Yes (4) Acute urinary retention Is this a current diagnosis for this admission?: Yes (5) Hypertension Qualifiers: Hypertension type: essential hypertension Qualified Code(s): I10 - Essential (primary) hypertension Is this a current diagnosis for this admission?: Yes (6) Type 2 diabetes mellitus Qualifiers: Diabetes mellitus complication status: without complication Diabetes mellitus senior living insulin use: without senior living use Qualified Code(s): E11.9 - Type 2 diabetes mellitus without complications Is this a current diagnosis for this admission?: Yes (7) Hypomagnesemia Is this a current diagnosis for this admission?: Yes (8) Gastroenteritis Is this a current diagnosis for this admission?: Yes Plan: See covering attending physician orders. Obtain stool C.difficile toxin titer. Stop all gastrointestinal stimulant usage for constipation. - Time Time Spent with patient: 25-34 minutes Medications reviewed and adjusted accordingly: Yes Anticipated discharge: Home with Homehealth Within: Other - Inpatient Certification Based on my medical assessment, after consideration of the patient's comorbidities, presenting symptoms, or acuity I expect that the services needed warrant INPATIENT care.: Yes I certify that my determination is in accordance with my understanding of Medicare's requirements for reasonable and necessary INPATIENT services [42 CFR 412.3e].: Yes Medical Necessity: Need Close Monitoring Due to Risk of Patient Decompensation, Need For IV Fluids, Need For Continuous Telemetry Monitoring, Need for IV Antibiotics, Risk of Complication if Not Cared For in Hospital Post Hospital Care: D/C Associate Professor Of Education Documentation - Plan Summary Plan Summary: See covering attending physician orders.
[2017-08-29] MEDS: LATANOPROST 0.005% OPH SOLN 2.5 ML OU SCH (23:00)
[2017-08-29] MEDS: MONTELUKAST SODIUM 10 MG TABLET PO SCH (23:01)
[2017-08-30] MEDS: LANSOPRAZOLE 30 MG TAB.RAP.DR PO SCH ×2 (05:38→19:10)
[2017-08-30] MEDS: CLONIDINE HCL 0.1 MG TABLET PO SCH ×3 (05:45→21:35)
--- NOTE | 2017-08-30 08:21 | PDOC PROGRESS REPORT ---
Subjective Progress Note for:: 08/30/17 Subjective:: Pt had more nausea over last 24 hours but no emesis, eating <50% of her meals, having diarrhea Reason For Visit: DEHYDRATION, LUNG CANCER, WT LOSS Physical Exam Vital Signs: Temp Pulse Resp BP Pulse Ox 98.4 F 114 H 16 119/86 H 100 08/30/17 07:57 08/30/17 07:57 08/30/17 07:57 08/30/17 07:57 08/30/17 07:57 Intake & Output 08/29/17 08/30/17 08/31/17 06:59 06:59 06:59 Intake Total 2336 1465 Balance 2336 1465 Weight 78 kg 76 kg General appearance: PRESENT: no acute distress, well-developed, well-nourished Head exam: PRESENT: atraumatic, normocephalic Eye exam: PRESENT: conjunctiva pink, EOMI, PERRLA. ABSENT: scleral icterus Ear exam: PRESENT: normal external ear exam Mouth exam: PRESENT: moist, tongue midline Neck exam: ABSENT: carotid bruit, JVD, lymphadenopathy, thyromegaly Respiratory exam: PRESENT: clear to auscultation darinel. ABSENT: rales, rhonchi, wheezes Cardiovascular exam: PRESENT: RRR. ABSENT: diastolic murmur, rubs, systolic murmur Pulses: PRESENT: normal dorsalis pedis pul Vascular exam: PRESENT: normal capillary refill GI/Abdominal exam: PRESENT: normal bowel sounds, soft. ABSENT: distended, guarding, mass, organolmegaly, rebound, tenderness Rectal exam: PRESENT: deferred Extremities exam: PRESENT: full ROM. ABSENT: calf tenderness, clubbing, pedal edema Neurological exam: PRESENT: alert, awake, oriented to person, oriented to place , oriented to time, oriented to situation, CN II-XII grossly intact. ABSENT: motor sensory deficit Psychiatric exam: PRESENT: appropriate affect, normal mood. ABSENT: homicidal ideation, suicidal ideation Skin exam: PRESENT: dry, intact, warm. ABSENT: cyanosis, rash Results Laboratory Results: 08/29/17 06:35 08/29/17 06:35 Impressions: Abdomen/Pelvis CT 08/25/17 00:00 IMPRESSION: 1. Masslike consolidation of the right lung base. The solid portion of this consolidation measures 4.2 cm with adjacent consolidated lungs with air bronchograms. This could represent a mass with postobstructive pneumonic process of the right lower lobe. Alternatively, the entire opacity could represent pneumonic or malignant consolidation. 2. There is a 0.9 cm pleural-based pulmonary nodule in the right midlung best seen on image #28, series 4. There are also 3 nodular opacities in the right upper lung measuring approximately 0.8 cm best seen on image numbers 19 and 20. These could represent neoplastic pulmonary nodules, scarring, or postoperative change. PET/CT may be able to provide additional characterization. 3. Possible tiny bilateral pleural effusions. 4. Moderate to large amount of ascites. This exam was performed according to our departmental dose-optimization program, which includes automated exposure control, adjustment of the mA and/or kV according to patient size and/or use of iterative reconstruction technique. Chest CT 08/25/17 00:00 IMPRESSION: 1. Masslike consolidation of the right lung base. The solid portion of this consolidation measures 4.2 cm with adjacent consolidated lungs with air bronchograms. This could represent a mass with postobstructive pneumonic process of the right lower lobe. Alternatively, the entire opacity could represent pneumonic or malignant consolidation. 2. There is a 0.9 cm pleural-based pulmonary nodule in the right midlung best seen on image #28, series 4. There are also 3 nodular opacities in the right upper lung measuring approximately 0.8 cm best seen on image numbers 19 and 20. These could represent neoplastic pulmonary nodules, scarring, or postoperative change. PET/CT may be able to provide additional characterization. 3. Possible tiny bilateral pleural effusions. 4. Moderate to large amount of ascites. This exam was performed according to our departmental dose-optimization program, which includes automated exposure control, adjustment of the mA and/or kV according to patient size and/or use of iterative reconstruction technique. Abdomen Ultrasound 08/26/17 08:22 IMPRESSION: No ultrasound-guided paracentesis performed today. Dr. Moraes notified. Assessment & Plan - Diagnosis (1) Nausea & vomiting Qualifiers: Vomiting type: cyclical vomiting Vomiting Intractability: intractable Qualified Code(s): G43.A1 - Cyclical vomiting, intractable Is this a current diagnosis for this admission?: Yes Plan: Likely 2nd carcinomatosis but need to prove that, will order CT A/P w/ Oral contrast today, add phenergan for nausea, having lower abd pain, will give morphine (2) Malignant neoplasm of right upper lobe of lung Is this a current diagnosis for this admission?: Yes Plan: Will see what oral contrast CT A/P shows, may consider chemo rx in house if only carcinomatosis w/out any evidence of severe obstruction. (3) Bacterial pneumonia Is this a current diagnosis for this admission?: Yes Plan: D/d abx today, rx completed - Time Time Spent with patient: 35 or more minutes Total Critical Time (Minutes): 40 - Inpatient Certification Based on my medical assessment, after consideration of the patient's comorbidities, presenting symptoms, or acuity I expect that the services needed warrant INPATIENT care.: Yes I certify that my determination is in accordance with my understanding of Medicare's requirements for reasonable and necessary INPATIENT services [42 CFR 412.3e].: Yes Medical Necessity: Need For IV Fluids, Need for Pain Control
[2017-08-30] MEDS: IPRATROPIUM/ALBUTEROL 0.5-2.5 MG/3 ML AMPUL NEB SCH ×3 (08:46→19:22)
[2017-08-30] MEDS ORDERED: PROMETHAZINE HCL INJ 25 MG/1 ML VIAL IV PRN (08:53)
[2017-08-30] MEDS ORDERED: OXYCODONE-ACETAMINOPHEN 5-325 MG TABLET PO PRN (09:00)
[2017-08-30] MEDS ORDERED: ONDANSETRON HCL INJ/PF 4 MG/2 ML SDV IV PRN (09:00)
[2017-08-30] MEDS: ENOXAPARIN SODIUM INJ 40 MG/0.4 ML DISP.SYRIN SUBCUT SCH (09:54)
[2017-08-30] MEDS: AMLODIPINE BESYLATE 2.5 MG TABLET PO SCH (09:55)
[2017-08-30] MEDS: FLUTICASONE/SALMETEROL DISKUS 250-50 MCG/DOSE IH SCH ×2 (09:55→21:35)
[2017-08-30] MEDS: GUAIFENESIN 600 MG TABLET.SA PO SCH ×2 (09:55→21:35)
[2017-08-30] MEDS: BENZONATATE 100 MG CAPSULE PO SCH ×4 (09:55→21:09)
[2017-08-30] MEDS: DRONABINOL 2.5 MG CAPSULE PO SCH ×2 (09:55→18:00)
--- NOTE | 2017-08-30 11:10 | PDOC PROGRESS REPORT ---
Subjective Progress Note for:: 08/30/17 Subjective:: Patient is currently doing same still complaining some nausea vomiting And have a lot of loose stools since last several days and patient's C. difficile is all negative Patient still have a very poor appetite Reason For Visit: DEHYDRATION, LUNG CANCER, WT LOSS Physical Exam Vital Signs: Temp Pulse Resp BP Pulse Ox 98.4 F 114 H 16 119/86 H 100 08/30/17 07:57 08/30/17 07:57 08/30/17 07:57 08/30/17 07:57 08/30/17 07:57 Intake & Output 08/29/17 08/30/17 08/31/17 06:59 06:59 06:59 Intake Total 2336 1465 Balance 2336 1465 Weight 78 kg 76 kg General appearance: PRESENT: no acute distress, well-developed, well-nourished Head exam: PRESENT: atraumatic, normocephalic Eye exam: PRESENT: conjunctiva pink, EOMI, PERRLA. ABSENT: scleral icterus Ear exam: PRESENT: normal external ear exam Mouth exam: PRESENT: moist, tongue midline Neck exam: PRESENT: full ROM. ABSENT: carotid bruit, JVD, lymphadenopathy, thyromegaly Respiratory exam: PRESENT: clear to auscultation darinel Cardiovascular exam: PRESENT: RRR. ABSENT: diastolic murmur, rubs, systolic murmur Pulses: PRESENT: normal dorsalis pedis pul, +2 pedal pulses bilateral Vascular exam: PRESENT: normal capillary refill GI/Abdominal exam: PRESENT: normal bowel sounds, soft. ABSENT: distended, guarding, mass, organolmegaly, rebound, tenderness Rectal exam: PRESENT: deferred Extremities exam: ABSENT: pedal edema Neurological exam: PRESENT: alert, awake, oriented to person, oriented to place , oriented to time, oriented to situation, CN II-XII grossly intact. ABSENT: motor sensory deficit Psychiatric exam: PRESENT: appropriate affect, normal mood. ABSENT: homicidal ideation, suicidal ideation Skin exam: PRESENT: dry, intact, warm. ABSENT: cyanosis, rash Results Laboratory Results: 08/29/17 06:35 08/29/17 06:35 Impressions: Abdomen/Pelvis CT 08/25/17 00:00 IMPRESSION: 1. Masslike consolidation of the right lung base. The solid portion of this consolidation measures 4.2 cm with adjacent consolidated lungs with air bronchograms. This could represent a mass with postobstructive pneumonic process of the right lower lobe. Alternatively, the entire opacity could represent pneumonic or malignant consolidation. 2. There is a 0.9 cm pleural-based pulmonary nodule in the right midlung best seen on image #28, series 4. There are also 3 nodular opacities in the right upper lung measuring approximately 0.8 cm best seen on image numbers 19 and 20. These could represent neoplastic pulmonary nodules, scarring, or postoperative change. PET/CT may be able to provide additional characterization. 3. Possible tiny bilateral pleural effusions. 4. Moderate to large amount of ascites. This exam was performed according to our departmental dose-optimization program, which includes automated exposure control, adjustment of the mA and/or kV according to patient size and/or use of iterative reconstruction technique. Chest CT 08/25/17 00:00 IMPRESSION: 1. Masslike consolidation of the right lung base. The solid portion of this consolidation measures 4.2 cm with adjacent consolidated lungs with air bronchograms. This could represent a mass with postobstructive pneumonic process of the right lower lobe. Alternatively, the entire opacity could represent pneumonic or malignant consolidation. 2. There is a 0.9 cm pleural-based pulmonary nodule in the right midlung best seen on image #28, series 4. There are also 3 nodular opacities in the right upper lung measuring approximately 0.8 cm best seen on image numbers 19 and 20. These could represent neoplastic pulmonary nodules, scarring, or postoperative change. PET/CT may be able to provide additional characterization. 3. Possible tiny bilateral pleural effusions. 4. Moderate to large amount of ascites. This exam was performed according to our departmental dose-optimization program, which includes automated exposure control, adjustment of the mA and/or kV according to patient size and/or use of iterative reconstruction technique. Abdomen Ultrasound 08/26/17 08:22 IMPRESSION: No ultrasound-guided paracentesis performed today. Dr. Moraes notified. 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 contrast to further evaluate (2) Nausea & vomiting Qualifiers: Vomiting type: cyclical vomiting Vomiting Intractability: intractable Qualified Code(s): G43.A1 - Cyclical vomiting, intractable Is this a current diagnosis for this admission?: Yes Plan: Most likely due to the ascites with ongoing lung cancers will get the barium swallow study (3) Bacterial pneumonia Is this a current diagnosis for this admission?: Yes Plan: No sign of any pneumonia most likely related to the malignancy will DC the IV antibiotic (4) Hypertension Qualifiers: Hypertension type: essential hypertension Qualified Code(s): I10 - Essential (primary) hypertension Is this a current diagnosis for this admission?: Yes Plan: Currently all stable (5) Malignant neoplasm of right upper lobe of lung Is this a current diagnosis for this admission?: Yes Plan: Follow-up with oncology (6) Sleep apnea Qualifiers: Sleep apnea type: unspecified type Qualified Code(s): G47.30 - Sleep apnea , unspecified Is this a current diagnosis for this admission?: Yes Plan: Uses CPAP (7) Type 2 diabetes mellitus Qualifiers: Diabetes mellitus complication status: without complication Diabetes mellitus roasterman insulin use: without roasterman use Qualified Code(s): E11.9 - Type 2 diabetes mellitus without complications Is this a current diagnosis for this admission?: Yes Plan: Is an A1c was currently on less than 6. All the medications discontinues the sliding scale - Time Time Spent with patient: 15-24 minutes Medications reviewed and adjusted accordingly: Yes Anticipated discharge: Home Within: Other - Inpatient Certification Medical Necessity: Need Close Monitoring Due to Risk of Patient Decompensation Post Hospital Care: D/C Mapping Specialist Documentation - Plan Summary Plan Summary: We will get the CT abdomen pelvis with the p.o. contrast
--- NOTE | 2017-08-30 13:35 | PDOC PROGRESS REPORT ---
Subjective Progress Note for:: 08/30/17 Subjective:: continued diarrhea Reason For Visit: DEHYDRATION, LUNG CANCER, WT LOSS Physical Exam Vital Signs: Temp Pulse Resp BP Pulse Ox 98.6 F 115 H 12 126/87 H 96 08/30/17 12:02 08/30/17 12:02 08/30/17 12:02 08/30/17 12:02 08/30/17 12:02 Intake & Output 08/29/17 08/30/17 08/31/17 06:59 06:59 06:59 Intake Total 2336 1465 Balance 2336 1465 Weight 78 kg 76 kg General appearance: PRESENT: no acute distress, cooperative, disheveled, mild distress, obese. ABSENT: morbidly obese, severe distress Head exam: PRESENT: atraumatic, normocephalic Eye exam: PRESENT: conjunctiva pale, EOMI, scleral icterus. ABSENT: conjunctival injection, conjunctiva pink, nystagmus, periorbital swelling Mouth exam: PRESENT: dry mucosa, neck supple, tongue midline. ABSENT: laceration, moist Neck exam: ABSENT: carotid bruit, JVD, lymphadenopathy, thyromegaly, tracheal deviation, tracheostomy Respiratory exam: PRESENT: decreased breath sounds, prolonged expiratory phas, rhonchi, symmetrical, unlabored. ABSENT: accessory muscle use, chest wall tenderness, clear to auscultation darinel, crackles, rales, retraction, stridor, tachypnea Cardiovascular exam: PRESENT: RRR, +S1, +S2 Pulses: PRESENT: normal radial pulses GI/Abdominal exam: PRESENT: diminished bowel sounds, soft, tenderness Extremities exam: ABSENT: clubbing, joint swelling Musculoskeletal exam: ABSENT: deformity, dislocation Neurological exam: PRESENT: alert, awake Psychiatric exam: PRESENT: flat affect Skin exam: PRESENT: dry, warm Results Laboratory Results: 08/29/17 06:35 08/29/17 06:35 Impressions: Abdomen/Pelvis CT 08/25/17 00:00 IMPRESSION: 1. Masslike consolidation of the right lung base. The solid portion of this consolidation measures 4.2 cm with adjacent consolidated lungs with air bronchograms. This could represent a mass with postobstructive pneumonic process of the right lower lobe. Alternatively, the entire opacity could represent pneumonic or malignant consolidation. 2. There is a 0.9 cm pleural-based pulmonary nodule in the right midlung best seen on image #28, series 4. There are also 3 nodular opacities in the right upper lung measuring approximately 0.8 cm best seen on image numbers 19 and 20. These could represent neoplastic pulmonary nodules, scarring, or postoperative change. PET/CT may be able to provide additional characterization. 3. Possible tiny bilateral pleural effusions. 4. Moderate to large amount of ascites. This exam was performed according to our departmental dose-optimization program, which includes automated exposure control, adjustment of the mA and/or kV according to patient size and/or use of iterative reconstruction technique. Chest CT 08/25/17 00:00 IMPRESSION: 1. Masslike consolidation of the right lung base. The solid portion of this consolidation measures 4.2 cm with adjacent consolidated lungs with air bronchograms. This could represent a mass with postobstructive pneumonic process of the right lower lobe. Alternatively, the entire opacity could represent pneumonic or malignant consolidation. 2. There is a 0.9 cm pleural-based pulmonary nodule in the right midlung best seen on image #28, series 4. There are also 3 nodular opacities in the right upper lung measuring approximately 0.8 cm best seen on image numbers 19 and 20. These could represent neoplastic pulmonary nodules, scarring, or postoperative change. PET/CT may be able to provide additional characterization. 3. Possible tiny bilateral pleural effusions. 4. Moderate to large amount of ascites. This exam was performed according to our departmental dose-optimization program, which includes automated exposure control, adjustment of the mA and/or kV according to patient size and/or use of iterative reconstruction technique. Abdomen Ultrasound 08/26/17 08:22 IMPRESSION: No ultrasound-guided paracentesis performed today. Dr. Moraes notified. Assessment & Plan - Diagnosis (1) Abdominal swelling, generalized Is this a current diagnosis for this admission?: Yes Plan: Ascites paracentesis including cytology (2) Nausea & vomiting Qualifiers: Vomiting type: cyclical vomiting Vomiting Intractability: intractable Qualified Code(s): G43.A1 - Cyclical vomiting, intractable Is this a current diagnosis for this admission?: Yes Plan: Anti-emetics as needed (3) Pleural effusion Is this a current diagnosis for this admission?: Yes Plan: Effusion and atelectasis have been stable no suspicion that this is an acute pneumonia no leukocytosis, no left shift, afebrile with little to no cough
--- NOTE | 2017-08-30 14:49 | RADIOLOGY REPORT (SQ) ---
EXAM DESCRIPTION: CT ABD/PELVIS ORAL ONLY COMPLETED DATE/TIME: 08/30/2017 2:32 pm REASON FOR STUDY: abd pain/nausea/vomiting COMPARISON: 08/25/2017 TECHNIQUE: CT scan of the abdomen and pelvis performed with oral contrast and no intravenous contras t. Images reviewed with lung, soft tissue, and bone windows. Reconstructed coronal and sagittal MPR i mages reviewed. All images stored on PACS. All CT scanners at this facility use dose modulation, iterative reconstruction, and/or weight based d osing when appropriate to reduce radiation dose to as low as reasonably achievable (ALARA). [facility]: Dose Right [facility]: CareDose [facility]: Dose Right [facility]: Teradose 4D [facility]: [employer] RADIATION DOSE: CT Rad equipment meets quality standard of care and radiation dose reduction techniq ues were employed. CTDIvol: 13.3 mGy. DLP: 709 mGy-cm. mGy. LIMITATIONS: None. FINDINGS: Since the prior 08/25/2017, no significant change in the amount of ascites. Mesenteric hy peremia without evidence of bulky adenopathy. No free air. There is no evidence of bowel obstructio n. Nonobstructing bilateral renal calculi. No pelvic mass. IMPRESSION: Moderate ascites. No significant change. TECHNICAL DOCUMENTATION: JOB ID: [id number] Quality ID # [id number]: Final reports with documentation of one or more dose reduction techniques (e.g., Au tomated exposure control, adjustment of the mA and/or kV according to patient size, use of iterative reconstruction technique) 2010 [employer]- All Rights Reserved
[2017-08-30] MEDS ORDERED: MAG HYDROX/AL HYDROX/SIMETH SUSP 30 ML UDCUP PO PRN (15:30)
[2017-08-30] MEDS: RANOLAZINE 500 MG TAB.SR.12H PO SCH ×2 (17:27→21:35)
[2017-08-30] MEDS: MORPHINE SULFATE 10 MG/ML INJ IV PRN (19:51)
[2017-08-30] MEDS: MONTELUKAST SODIUM 10 MG TABLET PO SCH (21:09)
[2017-08-30] MEDS: LATANOPROST 0.005% OPH SOLN 2.5 ML OU SCH (21:35)
[2017-08-31 05:35] LABS: ABSOLUTE EOSINOPHILS # (AUTO) 0.1 10^3/uL (0.0-0.6); ABSOLUTE LYMPHOCYTES (AUTO) 0.8 10^3/uL (0.5-4.7); ABSOLUTE NEUT (AUTO) 5.2 10^3/uL (1.7-8.2); BASOPHILS % (AUTO) 0.5 % (0-2); EOSINOPHILS % (AUTO) 1.3 % (0-6); HEMATOCRIT 36.1 % (36.0-47.0); HEMOGLOBIN 11.6 g/dL (12.0-15.5); LYMPHOCYTES % (AUTO) 11.2 % (13-45); MEAN CORPUSCULAR HEMOGLOBIN 29.9 pg (27.0-33.4); MEAN CORPUSCULAR HGB CONC 32.2 g/dL (32.0-36.0); MEAN CORPUSCULAR VOLUME 93 fl (80-97); MONOCYTES % (AUTO) 14.2 % (3-13); PLATELET COUNT 223 10^3/uL (150-450); RED BLOOD COUNT 3.88 10^6/uL (3.72-5.28); RED CELL DISTRIBUTION WIDTH 14.9 % (11.5-14.0); SEGMENTED NEUTROPHILS % (AUTO) 72.8 % (42-78); TOTAL CELLS COUNTED % (AUTO) 100 %; WHITE BLOOD COUNT 7.1 10^3/uL (4.0-10.5)
[2017-08-31 06:03] LABS: ANION GAP 12 (5-19); BLOOD UREA NITROGEN 11 mg/dL (7-20); CALCIUM 7.5 mg/dL (8.4-10.2); CARBON DIOXIDE 21 mmol/L (22-30); CHLORIDE 108 mmol/L (98-107); GLUCOSE 111 mg/dL (75-110); POTASSIUM 4.8 mmol/L (3.6-5.0); SODIUM 140.6 mmol/L (137-145)
[2017-08-31] MEDS: CLONIDINE HCL 0.1 MG TABLET PO SCH ×3 (06:41→22:54)
[2017-08-31] MEDS: LANSOPRAZOLE 30 MG TAB.RAP.DR PO SCH ×2 (06:41→18:24)
[2017-08-31] MEDS: NORMAL SALINE 1000 ML 1,000 ML IV PRN (06:41)
--- NOTE | 2017-08-31 07:59 | PDOC PROGRESS REPORT ---
Subjective Progress Note for:: 08/31/17 Subjective:: No acute events overnight but was able to tolerate PO yesterday w/out as much nausea, feeling better overall, PT will need to walk pt today Reviewed CT imaging, no regan obstruction and seems to have contrast throughout bowel Reason For Visit: DEHYDRATION, LUNG CANCER, WT LOSS Physical Exam Vital Signs: Temp Pulse Resp BP Pulse Ox 97.9 F 118 H 17 140/92 H 98 08/31/17 04:20 08/31/17 04:20 08/31/17 04:20 08/31/17 04:20 08/31/17 04:20 Intake & Output 08/30/17 08/31/17 09/01/17 06:59 06:59 06:59 Intake Total 1465 2410 Balance 1465 2410 Weight 76 kg 76 kg General appearance: PRESENT: no acute distress, well-developed, well-nourished Head exam: PRESENT: atraumatic, normocephalic Eye exam: PRESENT: conjunctiva pink, EOMI, PERRLA. ABSENT: scleral icterus Ear exam: PRESENT: normal external ear exam Mouth exam: PRESENT: moist, tongue midline Neck exam: ABSENT: carotid bruit, JVD, lymphadenopathy, thyromegaly Respiratory exam: PRESENT: clear to auscultation darinel. ABSENT: rales, rhonchi, wheezes Cardiovascular exam: PRESENT: RRR. ABSENT: diastolic murmur, rubs, systolic murmur Pulses: PRESENT: normal dorsalis pedis pul Vascular exam: PRESENT: normal capillary refill GI/Abdominal exam: PRESENT: normal bowel sounds, soft. ABSENT: distended, guarding, mass, organolmegaly, rebound, tenderness Rectal exam: PRESENT: deferred Extremities exam: PRESENT: full ROM. ABSENT: calf tenderness, clubbing, pedal edema Neurological exam: PRESENT: alert, awake, oriented to person, oriented to place , oriented to time, oriented to situation, CN II-XII grossly intact. ABSENT: motor sensory deficit Psychiatric exam: PRESENT: appropriate affect, normal mood. ABSENT: homicidal ideation, suicidal ideation Skin exam: PRESENT: dry, intact, warm. ABSENT: cyanosis, rash Results Laboratory Results: 08/31/17 04:19 08/31/17 04:19 08/31/17 08/31/17 04:19 04:19 WBC 7.1 RBC 3.88 Hgb 11.6 L Hct 36.1 MCV 93 MCH 29.9 MCHC 32.2 RDW 14.9 H Plt Count 223 Seg Neutrophils % 72.8 Lymphocytes % 11.2 L Monocytes % 14.2 H Eosinophils % 1.3 Basophils % 0.5 Absolute Neutrophils 5.2 Absolute Lymphocytes 0.8 Absolute Monocytes 1.0 Absolute Eosinophils 0.1 Absolute Basophils 0.0 Sodium 140.6 Potassium 4.8 Chloride 108 H Carbon Dioxide 21 L Anion Gap 12 BUN 11 Creatinine 0.74 Est GFR ( Amer) > 60 Est GFR (Non-Af Amer) > 60 Glucose 111 H Calcium 7.5 L 08/25/17 20:15 Blood Blood Culture - Final NO GROWTH IN 5 DAYS 08/25/17 20:30 Blood Blood Culture - Final NO GROWTH IN 5 DAYS Impressions: Chest CT 08/25/17 00:00 IMPRESSION: 1. Masslike consolidation of the right lung base. The solid portion of this consolidation measures 4.2 cm with adjacent consolidated lungs with air bronchograms. This could represent a mass with postobstructive pneumonic process of the right lower lobe. Alternatively, the entire opacity could represent pneumonic or malignant consolidation. 2. There is a 0.9 cm pleural-based pulmonary nodule in the right midlung best seen on image #28, series 4. There are also 3 nodular opacities in the right upper lung measuring approximately 0.8 cm best seen on image numbers 19 and 20. These could represent neoplastic pulmonary nodules, scarring, or postoperative change. PET/CT may be able to provide additional characterization. 3. Possible tiny bilateral pleural effusions. 4. Moderate to large amount of ascites. This exam was performed according to our departmental dose-optimization program, which includes automated exposure control, adjustment of the mA and/or kV according to patient size and/or use of iterative reconstruction technique. Abdomen Ultrasound 08/26/17 08:22 IMPRESSION: No ultrasound-guided paracentesis performed today. Dr. Moraes notified. Abdomen/Pelvis CT 08/30/17 00:00 IMPRESSION: Moderate ascites. No significant change. Assessment & Plan - Diagnosis (1) Nausea & vomiting Qualifiers: Vomiting type: cyclical vomiting Vomiting Intractability: intractable Qualified Code(s): G43.A1 - Cyclical vomiting, intractable Is this a current diagnosis for this admission?: Yes Plan: 2nd in part to carcinomatosis but it is improving, con't to advance diet and see how pt does (2) Malignant neoplasm of right upper lobe of lung Is this a current diagnosis for this admission?: Yes Plan: Will plan further chemo/rx as outpt
[2017-08-31] MEDS: IPRATROPIUM/ALBUTEROL 0.5-2.5 MG/3 ML AMPUL NEB SCH ×3 (08:54→20:36)
--- NOTE | 2017-08-31 09:09 | PDOC PROGRESS REPORT ---
Subjective Progress Note for:: 08/31/17 Subjective:: Patient is currently doing fair Patient CT abdomen pelvis with oral contrast did not show any obstructions Patient's denied any nausea no vomiting today but still some of some abdominal discomfort Patient's diarrhea is also getting better Patient's denied any chest pain denied any shortness of the breath Reason For Visit: DEHYDRATION, LUNG CANCER, WT LOSS Physical Exam Vital Signs: Temp Pulse Resp BP Pulse Ox 97.9 F 116 H 17 140/92 H 98 08/31/17 04:20 08/31/17 07:00 08/31/17 04:20 08/31/17 04:20 08/31/17 04:20 Intake & Output 08/30/17 08/31/17 09/01/17 06:59 06:59 06:59 Intake Total 1465 2410 Balance 1465 2410 Weight 76 kg 76 kg General appearance: PRESENT: no acute distress, well-developed, well-nourished Head exam: PRESENT: atraumatic, normocephalic Eye exam: PRESENT: conjunctiva pink, EOMI, PERRLA. ABSENT: scleral icterus Ear exam: PRESENT: normal external ear exam Mouth exam: PRESENT: moist, tongue midline Neck exam: PRESENT: full ROM. ABSENT: carotid bruit, JVD, lymphadenopathy, thyromegaly Respiratory exam: PRESENT: clear to auscultation darinel Cardiovascular exam: PRESENT: RRR. ABSENT: diastolic murmur, rubs, systolic murmur Pulses: PRESENT: normal dorsalis pedis pul, +2 pedal pulses bilateral Vascular exam: PRESENT: normal capillary refill GI/Abdominal exam: PRESENT: distended, normal bowel sounds, soft. ABSENT: guarding, mass, organolmegaly, rebound, tenderness Rectal exam: PRESENT: deferred Extremities exam: ABSENT: pedal edema Neurological exam: PRESENT: alert, awake, oriented to person, oriented to place , oriented to time, oriented to situation, CN II-XII grossly intact. ABSENT: motor sensory deficit Psychiatric exam: PRESENT: appropriate affect, normal mood. ABSENT: homicidal ideation, suicidal ideation Skin exam: PRESENT: dry, intact, warm. ABSENT: cyanosis, rash Results Laboratory Results: 08/31/17 04:19 08/31/17 04:19 08/31/17 08/31/17 04:19 04:19 WBC 7.1 RBC 3.88 Hgb 11.6 L Hct 36.1 MCV 93 MCH 29.9 MCHC 32.2 RDW 14.9 H Plt Count 223 Seg Neutrophils % 72.8 Lymphocytes % 11.2 L Monocytes % 14.2 H Eosinophils % 1.3 Basophils % 0.5 Absolute Neutrophils 5.2 Absolute Lymphocytes 0.8 Absolute Monocytes 1.0 Absolute Eosinophils 0.1 Absolute Basophils 0.0 Sodium 140.6 Potassium 4.8 Chloride 108 H Carbon Dioxide 21 L Anion Gap 12 BUN 11 Creatinine 0.74 Est GFR ( Amer) > 60 Est GFR (Non-Af Amer) > 60 Glucose 111 H Calcium 7.5 L 08/25/17 20:15 Blood Blood Culture - Final NO GROWTH IN 5 DAYS 08/25/17 20:30 Blood Blood Culture - Final NO GROWTH IN 5 DAYS Impressions: Chest CT 08/25/17 00:00 IMPRESSION: 1. Masslike consolidation of the right lung base. The solid portion of this consolidation measures 4.2 cm with adjacent consolidated lungs with air bronchograms. This could represent a mass with postobstructive pneumonic process of the right lower lobe. Alternatively, the entire opacity could represent pneumonic or malignant consolidation. 2. There is a 0.9 cm pleural-based pulmonary nodule in the right midlung best seen on image #28, series 4. There are also 3 nodular opacities in the right upper lung measuring approximately 0.8 cm best seen on image numbers 19 and 20. These could represent neoplastic pulmonary nodules, scarring, or postoperative change. PET/CT may be able to provide additional characterization. 3. Possible tiny bilateral pleural effusions. 4. Moderate to large amount of ascites. This exam was performed according to our departmental dose-optimization program, which includes automated exposure control, adjustment of the mA and/or kV according to patient size and/or use of iterative reconstruction technique. Abdomen Ultrasound 08/26/17 08:22 IMPRESSION: No ultrasound-guided paracentesis performed today. Dr. Moraes notified. Abdomen/Pelvis CT 08/30/17 00:00 IMPRESSION: Moderate ascites. No significant change. Assessment & Plan - Diagnosis (1) Abdominal swelling, generalized Is this a current diagnosis for this admission?: Yes Plan: Currently all stableNo sign of any obstructions (2) Nausea & vomiting Qualifiers: Vomiting type: cyclical vomiting Vomiting Intractability: intractable Qualified Code(s): G43.A1 - Cyclical vomiting, intractable Is this a current diagnosis for this admission?: Yes Plan: Most likely due to the ascites with ongoing lung cancers will get the barium swallow study (3) Bacterial pneumonia Is this a current diagnosis for this admission?: Yes Plan: No sign of any pneumonia most likely a malignancy will continues DC the antibiotic (4) Hypertension Qualifiers: Hypertension type: essential hypertension Qualified Code(s): I10 - Essential (primary) hypertension Is this a current diagnosis for this admission?: Yes Plan: Currently all stable (5) Malignant neoplasm of right upper lobe of lung Is this a current diagnosis for this admission?: Yes Plan: Follow-up with oncology (6) Sleep apnea Qualifiers: Sleep apnea type: unspecified type Qualified Code(s): G47.30 - Sleep apnea , unspecified Is this a current diagnosis for this admission?: Yes Plan: Uses CPAP (7) Type 2 diabetes mellitus Qualifiers: Diabetes mellitus complication status: without complication Diabetes mellitus senior care insulin use: without senior care use Qualified Code(s): E11.9 - Type 2 diabetes mellitus without complications Is this a current diagnosis for this admission?: Yes Plan: Is an A1c was currently on less than 6. 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
[2017-08-31] MEDS: DRONABINOL 2.5 MG CAPSULE PO SCH ×2 (12:08→18:25)
[2017-08-31] MEDS: GUAIFENESIN 600 MG TABLET.SA PO SCH ×2 (12:08→22:54)
[2017-08-31] MEDS: AMLODIPINE BESYLATE 2.5 MG TABLET PO SCH (12:08)
[2017-08-31] MEDS: RANOLAZINE 500 MG TAB.SR.12H PO SCH ×2 (12:08→22:54)
[2017-08-31] MEDS: BENZONATATE 100 MG CAPSULE PO SCH ×4 (12:08→22:36)
[2017-08-31] MEDS: FLUTICASONE/SALMETEROL DISKUS 250-50 MCG/DOSE IH SCH ×2 (12:08→22:54)
[2017-08-31] MEDS: ENOXAPARIN SODIUM INJ 40 MG/0.4 ML DISP.SYRIN SUBCUT SCH (12:16)
[2017-08-31] MEDS: MORPHINE SULFATE 10 MG/ML INJ IV PRN ×2 (12:16→22:58)
[2017-08-31] MEDS: OXYCODONE-ACETAMINOPHEN 5-325 MG TABLET PO SCH ×2 (12:23→18:25)
[2017-08-31] MEDS: MONTELUKAST SODIUM 10 MG TABLET PO SCH (22:54)
[2017-08-31] MEDS: LATANOPROST 0.005% OPH SOLN 2.5 ML OU SCH (22:54)
[2017-09-01 04:40] LABS: ANION GAP 10 (5-19); BLOOD UREA NITROGEN 13 mg/dL (7-20); CALCIUM 7.5 mg/dL (8.4-10.2); CARBON DIOXIDE 19 mmol/L (22-30); CHLORIDE 111 mmol/L (98-107); GLUCOSE 103 mg/dL (75-110); POTASSIUM 4.7 mmol/L (3.6-5.0); SODIUM 140.4 mmol/L (137-145)
[2017-09-01] MEDS: OXYCODONE-ACETAMINOPHEN 5-325 MG TABLET PO SCH ×4 (05:08→18:43)
[2017-09-01] MEDS: CLONIDINE HCL 0.1 MG TABLET PO SCH ×3 (06:57→21:50)
[2017-09-01] MEDS: LANSOPRAZOLE 30 MG TAB.RAP.DR PO SCH ×2 (06:57→16:51)
[2017-09-01] MEDS: NORMAL SALINE 1000 ML 1,000 ML IV PRN (06:57)
[2017-09-01] MEDS: IPRATROPIUM/ALBUTEROL 0.5-2.5 MG/3 ML AMPUL NEB SCH ×3 (07:28→19:42)
[2017-09-01] MEDS: BENZONATATE 100 MG CAPSULE PO SCH ×4 (09:52→21:42)
[2017-09-01] MEDS: DRONABINOL 2.5 MG CAPSULE PO SCH ×2 (09:53→18:53)
[2017-09-01] MEDS: GUAIFENESIN 600 MG TABLET.SA PO SCH ×2 (09:53→21:50)
[2017-09-01] MEDS: AMLODIPINE BESYLATE 2.5 MG TABLET PO SCH (09:53)
[2017-09-01] MEDS: FLUTICASONE/SALMETEROL DISKUS 250-50 MCG/DOSE IH SCH ×2 (09:53→21:55)
[2017-09-01] MEDS: ENOXAPARIN SODIUM INJ 40 MG/0.4 ML DISP.SYRIN SUBCUT SCH (09:54)
[2017-09-01] MEDS: RANOLAZINE 500 MG TAB.SR.12H PO SCH ×2 (09:54→21:54)
--- NOTE | 2017-09-01 10:59 | PDOC PROGRESS REPORT ---
Subjective Progress Note for:: 09/01/17 Subjective:: Patient is currently doing same denied any nausea no vomiting Patient still very weak Reason For Visit: DEHYDRATION, LUNG CANCER, WT LOSS Physical Exam Vital Signs: Temp Pulse Resp BP Pulse Ox 97.7 F 118 H 16 116/79 100 09/01/17 08:00 09/01/17 08:00 09/01/17 08:00 09/01/17 08:00 09/01/17 08:00 Intake & Output 08/31/17 09/01/17 09/02/17 06:59 06:59 06:59 Intake Total 2410 2071 Balance 2412071 Weight 76 kg 76 kg General appearance: PRESENT: no acute distress, well-developed, well-nourished Head exam: PRESENT: atraumatic, normocephalic Eye exam: PRESENT: conjunctiva pink, EOMI, PERRLA. ABSENT: scleral icterus Ear exam: PRESENT: normal external ear exam Mouth exam: PRESENT: moist, tongue midline Neck exam: PRESENT: full ROM. ABSENT: carotid bruit, JVD, lymphadenopathy, thyromegaly Respiratory exam: PRESENT: clear to auscultation darinel Cardiovascular exam: PRESENT: RRR. ABSENT: diastolic murmur, rubs, systolic murmur Pulses: PRESENT: normal dorsalis pedis pul, +2 pedal pulses bilateral Vascular exam: PRESENT: normal capillary refill GI/Abdominal exam: PRESENT: ascites, distended, normal bowel sounds, soft. ABSENT: guarding, mass, organolmegaly, rebound, tenderness Rectal exam: PRESENT: deferred Extremities exam: ABSENT: pedal edema Musculoskeletal exam: PRESENT: ambulatory Neurological exam: PRESENT: alert, awake, oriented to person, oriented to place , oriented to time, oriented to situation, CN II-XII grossly intact. ABSENT: motor sensory deficit Psychiatric exam: PRESENT: appropriate affect, normal mood. ABSENT: homicidal ideation, suicidal ideation Skin exam: PRESENT: dry, intact, warm. ABSENT: cyanosis, rash Results Laboratory Results: 08/31/17 04:19 09/01/17 03:51 09/01/17 03:51 Sodium 140.4 Potassium 4.7 Chloride 111 H Carbon Dioxide 19 L Anion Gap 10 BUN 13 Creatinine 0.70 Est GFR ( Amer) > 60 Est GFR (Non-Af Amer) > 60 Glucose 103 Calcium 7.5 L Impressions: Chest CT 08/25/17 00:00 IMPRESSION: 1. Masslike consolidation of the right lung base. The solid portion of this consolidation measures 4.2 cm with adjacent consolidated lungs with air bronchograms. This could represent a mass with postobstructive pneumonic process of the right lower lobe. Alternatively, the entire opacity could represent pneumonic or malignant consolidation. 2. There is a 0.9 cm pleural-based pulmonary nodule in the right midlung best seen on image #28, series 4. There are also 3 nodular opacities in the right upper lung measuring approximately 0.8 cm best seen on image numbers 19 and 20. These could represent neoplastic pulmonary nodules, scarring, or postoperative change. PET/CT may be able to provide additional characterization. 3. Possible tiny bilateral pleural effusions. 4. Moderate to large amount of ascites. This exam was performed according to our departmental dose-optimization program, which includes automated exposure control, adjustment of the mA and/or kV according to patient size and/or use of iterative reconstruction technique. Abdomen Ultrasound 08/26/17 08:22 IMPRESSION: No ultrasound-guided paracentesis performed today. Dr. Moraes notified. Abdomen/Pelvis CT 08/30/17 00:00 IMPRESSION: Moderate ascites. No significant change. Assessment & Plan - Diagnosis (1) Abdominal swelling, generalized Is this a current diagnosis for this admission?: Yes Plan: Ascites most likely related to the malignancy (2) Nausea & vomiting Qualifiers: Vomiting type: cyclical vomiting Vomiting Intractability: intractable Qualified Code(s): G43.A1 - Cyclical vomiting, intractable Is this a current diagnosis for this admission?: Yes Plan: No sign of any obstructions (3) Bacterial pneumonia Is this a current diagnosis for this admission?: Yes Plan: No sign of any pneumonia (4) Hypertension Qualifiers: Hypertension type: essential hypertension Qualified Code(s): I10 - Essential (primary) hypertension Is this a current diagnosis for this admission?: Yes Plan: Currently all stable (5) Malignant neoplasm of right upper lobe of lung Is this a current diagnosis for this admission?: Yes Plan: Follow-up with oncology (6) Sleep apnea Qualifiers: Sleep apnea type: unspecified type Qualified Code(s): G47.30 - Sleep apnea , unspecified Is this a current diagnosis for this admission?: Yes Plan: Uses CPAP (7) Type 2 diabetes mellitus Qualifiers: Diabetes mellitus complication status: without complication 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
--- NOTE | 2017-09-01 11:29 | PDOC CONSULTATION ---
Consultation Consult Date: 09/01/17 Attending physician:: YAMILA CAZARES Consult reason:: nausea and vomiting. weight loss. loculated ascites History of Present Illness Admission Date/PCP: 08/25/17 18:18 VIOLETA JAVED History of Present Illness: Asked to see this patient by Dr bustos patient has been admitted has a history of lung cancer and has been having issues with ascites patient had imaging done, apparently not able to get specimen to see what type of ascitic fluid patient says has been having nausea and vomiting not able to eat at times has been having some weight loss ? consideration for possible carcinoid , may need EGD to work up N/V, weight loss if possibility of carcinoid lesion had colonoscopy in the past with Dr Gu cannot tolerate high amounts of medication patient is willing to proceed has some early satiety there is no melena patient says no dysphagia or odynophagia Past Medical History Cardiac Medical History: Reports: Atrial Fibrillation, Hyperlipidema, Hypertension Denies: Coronary Artery Disease, Myocardial Infarction Pulmonary Medical History: Reports: Asthma, Bronchitis, Chronic Obstructive Pulmonary Disease (COPD), Pneumonia, Respiratory Failure Denies: Tuberculosis EENT Medical History: Denies: Ears, Nose Neurological Medical History: Denies: Multiple Sclerosis, Seizures Endocrine Medical History: Reports: Diabetes Mellitus Type 2 - IDDM, Obesity Renal/ Medical History: Denies: Nephrolithiasis Malignancy Medical History: Reports: Breast Cancer, Lung Cancer GI Medical History: Reports: Gastroesophageal Reflux Disease Musculoskeltal Medical History: Reports: Arthritis - LEFT KNEE OSTEOARTHRITIS Denies: Gout Skin Medical History: Denies: Psoriasis Psychiatric Medical History: Denies: Depression Traumatic Medical History: Denies: Traumatic Brain Injury Hematology: Denies: Anemia, Sickle Cell Disease Infectious Medical History: Denies: Hepatitis B, Hepatitis C, HIV Past Surgical History Past Surgical History: Reports: Mastectomy - left, Other - Lung biopsy, Pleurx catheter placement and removal, thoracentesis Social History Lives with: Alone Smoking Status: Former Smoker Cigarettes Packs Per Day: 1 Number of Years Smokin Frequency of Alcohol Use: None Hx Recreational Drug Use: No Hx Prescription Drug Abuse: No - Advance Directive Resuscitation Status: Full Code Family History Family History: Reviewed & Not Pertinent, COPD, Hypertension, Other - no ca in fam known Parental Family History Reviewed: Yes Children Family History Reviewed: Unknown Sibling(s) Family History Reviewed.: Unknown Medication/Allergy Home Medications: Albuterol Sulfate [Proair HFA Inhalation Aerosol 8.5 gm MDI] 2 puff IH Q4HP PRN 08/25/17 Amlodipine Besylate [Norvasc 2.5 mg Tablet] 2.5 mg PO DAILY 08/25/17 Benzonatate [Tessalon Perle 100 mg Capsule] 200 mg PO QID 08/25/17 Brimonidine Tartrate [Alphagan P] 1 drop OU BID 08/25/17 Clonidine HCl [Catapres 0.1 mg Tablet] 0.1 mg PO Q8 08/25/17 Esomeprazole Mag Trihydrate [Nexium] 40 mg PO DAILY 08/25/17 Ezetimibe [Zetia 10 mg Tablet] 10 mg PO DAILY 08/25/17 Fluticasone/Salmeterol [Advair 250-50 Diskus 28 dose] 1 puff IH Q12 08/25/17 Insulin Glargine,Hum.rec.anlog [Lantus Solostar] 38 units SQ QHS 08/25/17 Insulin Lispro [Humalog Kwikpen U-100] 18 units SQ MEALS 08/25/17 Latanoprost [Xalatan] 1 drop OU QHS 08/25/17 Montelukast Sodium [Singulair 10 mg Tablet] 10 mg PO QHS 08/25/17 Ranolazine [Ranexa 500 mg Tab.sr] 500 mg PO Q12 08/25/17 Tamoxifen Citrate 20 mg PO DAILY 08/25/17 Allergies/Adverse Reactions: pravastatin [Pravastatin] Allergy (Severe, Verified 08/05/15 11:41) JOINT PAIN butorphanol tartrate [From Stadol] Allergy (Intermediate, Verified 08/05/15 11: 41) hives and itching latex [Latex] Allergy (Intermediate, Verified 08/05/15 11:41) hives and itching Sulfa (Sulfonamide Antibiotics) Allergy (Intermediate, Verified 08/05/15 11:41) giant hives and bad itching Review of Systems Constitutional: ABSENT: fever(s), headache(s), night sweats, weakness Eyes: ABSENT: visual disturbances Ears: ABSENT: hearing changes Nose, Mouth, and Throat: ABSENT: mouth pain, sore throat Cardiovascular: ABSENT: edema, orthropnea Respiratory: ABSENT: dyspnea, hemoptysis Gastrointestinal: PRESENT: heartburn, nausea, vomiting. ABSENT: dysphagia, melena Genitourinary: ABSENT: hematuria, nocturia Musculoskeletal: ABSENT: deformity, joint swelling Integumentary: ABSENT: lesions Neurological: PRESENT: weakness. ABSENT: syncope, tingling, tremor(s), vertigo Endocrine: ABSENT: polydipsia, polyphagia, polyuria Hematologic/Lymphatic: ABSENT: easy bruising Physical Exam Vital Signs: Temp Pulse Resp BP Pulse Ox 97.7 F 118 H 16 116/79 100 09/01/17 08:00 09/01/17 08:00 09/01/17 08:00 09/01/17 08:00 09/01/17 08:00 Intake & Output 08/31/17 09/01/17 09/02/17 06:59 06:59 06:59 Intake Total 2410 2 Balance 2410 2 Weight 76 kg 76 kg General appearance: PRESENT: no acute distress, well-developed, well-nourished Head exam: PRESENT: atraumatic, normocephalic Eye exam: PRESENT: EOMI, PERRLA. ABSENT: nystagmus, periorbital swelling, scleral icterus Mouth exam: PRESENT: moist, neck supple Throat exam: ABSENT: tonsillar exudate, tonsillogmegaly Neck exam: ABSENT: meningismus, tenderness, thyromegaly Respiratory exam: PRESENT: symmetrical, unlabored. ABSENT: stridor, tachypnea, wheezes Cardiovascular exam: PRESENT: RRR, +S1, +S2 GI/Abdominal exam: PRESENT: diminished bowel sounds, distended, firm. ABSENT: rebound, tenderness Extremities exam: ABSENT: joint swelling Musculoskeletal exam: PRESENT: full ROM Neurological exam: PRESENT: oriented to time, oriented to situation, CN II-XII grossly intact Psychiatric exam: PRESENT: appropriate affect Skin exam: PRESENT: normal color. ABSENT: mottled, pallor, urticaria, vesicles Results Laboratory Results: 08/31/17 04:19 09/01/17 03:51 09/01/17 03:51 Sodium 140.4 Potassium 4.7 Chloride 111 H Carbon Dioxide 19 L Anion Gap 10 BUN 13 Creatinine 0.70 Est GFR ( Amer) > 60 Est GFR (Non-Af Amer) > 60 Glucose 103 Calcium 7.5 L Impressions: Chest CT 08/25/17 00:00 IMPRESSION: 1. Masslike consolidation of the right lung base. The solid portion of this consolidation measures 4.2 cm with adjacent consolidated lungs with air bronchograms. This could represent a mass with postobstructive pneumonic process of the right lower lobe. Alternatively, the entire opacity could represent pneumonic or malignant consolidation. 2. There is a 0.9 cm pleural-based pulmonary nodule in the right midlung best seen on image #28, series 4. There are also 3 nodular opacities in the right upper lung measuring approximately 0.8 cm best seen on image numbers 19 and 20. These could represent neoplastic pulmonary nodules, scarring, or postoperative change. PET/CT may be able to provide additional characterization. 3. Possible tiny bilateral pleural effusions. 4. Moderate to large amount of ascites. This exam was performed according to our departmental dose-optimization program, which includes automated exposure control, adjustment of the mA and/or kV according to patient size and/or use of iterative reconstruction technique. Abdomen Ultrasound 08/26/17 08:22 IMPRESSION: No ultrasound-guided paracentesis performed today. Dr. Bustos notified. Abdomen/Pelvis CT 08/30/17 00:00 IMPRESSION: Moderate ascites. No significant change. Assessment & Plan - Diagnosis (1) Abdominal swelling, generalized Is this a current diagnosis for this admission?: Yes Plan: loculated ascites, would try to get interventional radiology to try and get specimen send for SAAG to determine fluid etiology could be contributing to her nausea and vomiting (2) Nausea & vomiting Qualifiers: Vomiting type: cyclical vomiting Vomiting Intractability: intractable Qualified Code(s): G43.A1 - Cyclical vomiting, intractable Is this a current diagnosis for this admission?: Yes Plan: patient has associated weight loss patient says has early satiety as well Risks, benefits and alternatives of an EGD are explained to the patient in detail further recommendations to follow patient is willing to proceed. - Time Time Spent: 50 to 70 Minutes
[2017-09-01] MEDS ORDERED: FUROSEMIDE 20 MG TABLET PO ONE (11:30)
[2017-09-01] MEDS ORDERED: DIPHENHYDRAMINE HCL 50 MG/ML VIAL ONE (11:34)
[2017-09-01] MEDS ORDERED: NALOXONE HCL INJ/PF 0.4 MG/1 ML SDV ONE (11:34)
[2017-09-01] MEDS ORDERED: ONDANSETRON HCL INJ/PF 4 MG/2 ML SDV ONE (11:34)
[2017-09-01] MEDS ORDERED: FLUMAZENIL INJ 0.5 MG/5 ML VIAL ONE (11:35)
[2017-09-01] MEDS ORDERED: EPINEPHRINE INJ 1 MG/10 ML DISP.SYRIN ONE (11:35)
[2017-09-01] MEDS ORDERED: GLUCAGON,HUMAN RECOMB 1 MG INJ ONE (11:35)
[2017-09-01] MEDS ORDERED: FENTANYL CITRATE INJ/PF 100 MCG/2 ML AMPUL ONE (11:35)
[2017-09-01] MEDS ORDERED: MIDAZOLAM 2 MG/2 ML INJ ONE (11:35)
[2017-09-01] MEDS: MIDAZOLAM 2 MG/2 ML INJ ONE ×2 (11:45→11:50)
--- NOTE | 2017-09-01 12:06 | Operative Report ---
Operative Report DATE OF SURGERY: 09/01/17 Operative Report: The risks benefits and alternatives of the procedure explained to the patient in detail and informed consent is obtained.A GIF Olympus video scope was inserted into the patient's mouth and hypopharynx, the esophagus is identified intubated and insufflated, the scope was then advanced through the esophagus stomach and duodenum, retroflexion maneuver is done, the esophagus stomach and first and second portions of the duodenum examined PREOPERATIVE DIAGNOSIS: Nausea vomiting, weight loss, early satiety POSTOPERATIVE DIAGNOSIS: Gastritis status post biopsy rule out Helicobacter pylori. Hiatal hernia OPERATION: EGD with biopsy SURGEON: YAMILA CAZARES ANESTHESIA: Moderate Sedation - 4 mg of Versed, 25 mcg of fentanyl. Conscious sedation monitoring time 30 minutes. TISSUE REMOVED OR ALTERED: As noted above. COMPLICATIONS: None. ESTIMATED BLOOD LOSS: None. INTRAOPERATIVE FINDINGS: As described above. PROCEDURE: Patient tolerated procedure well. No immediate postprocedure complications are noted. Patient sent back to her room in good condition. Resume regular diet. Resume regular activity level. We will wait on biopsies. Further recommendations to follow.
[2017-09-01] MEDS: MONTELUKAST SODIUM 10 MG TABLET PO SCH (21:42)
[2017-09-01] MEDS: LATANOPROST 0.005% OPH SOLN 2.5 ML OU SCH (21:55)
[2017-09-02] MEDS: OXYCODONE-ACETAMINOPHEN 5-325 MG TABLET PO SCH ×4 (00:20→18:38)
[2017-09-02] MEDS: MORPHINE SULFATE 10 MG/ML INJ IV PRN (00:25)
[2017-09-02] MEDS: CLONIDINE HCL 0.1 MG TABLET PO SCH ×3 (06:51→21:39)
[2017-09-02] MEDS: LANSOPRAZOLE 30 MG TAB.RAP.DR PO SCH ×2 (06:51→16:28)
[2017-09-02 06:52] LABS: ABSOLUTE EOSINOPHILS # (AUTO) 0.1 10^3/uL (0.0-0.6); ABSOLUTE LYMPHOCYTES (AUTO) 0.8 10^3/uL (0.5-4.7); ABSOLUTE MONOCYTES (AUTO) 0.8 10^3/uL (0.1-1.4); ABSOLUTE NEUT (AUTO) 4.1 10^3/uL (1.7-8.2); BASOPHILS % (AUTO) 0.4 % (0-2); EOSINOPHILS % (AUTO) 1.3 % (0-6); HEMATOCRIT 32.8 % (36.0-47.0); HEMOGLOBIN 10.7 g/dL (12.0-15.5); LYMPHOCYTES % (AUTO) 13.7 % (13-45); MEAN CORPUSCULAR HEMOGLOBIN 30.3 pg (27.0-33.4); MEAN CORPUSCULAR HGB CONC 32.5 g/dL (32.0-36.0); MEAN CORPUSCULAR VOLUME 93 fl (80-97); MONOCYTES % (AUTO) 13.5 % (3-13); PLATELET COUNT 216 10^3/uL (150-450); RED BLOOD COUNT 3.52 10^6/uL (3.72-5.28); RED CELL DISTRIBUTION WIDTH 15.2 % (11.5-14.0); SEGMENTED NEUTROPHILS % (AUTO) 71.1 % (42-78); TOTAL CELLS COUNTED % (AUTO) 100 %; WHITE BLOOD COUNT 5.7 10^3/uL (4.0-10.5)
[2017-09-02 07:15] LABS: ALANINE AMINOTRANSFERASE 26 U/L (9-52); ALBUMIN 3.2 g/dL (3.5-5.0); ALKALINE PHOSPHATASE 82 U/L (38-126); ANION GAP 10 (5-19); ASPARTATE AMINO TRANSFERASE 25 U/L (14-36); BILIRUBIN,DIRECT 0.2 mg/dL (0.0-0.4); BILIRUBIN,TOTAL 0.3 mg/dL (0.2-1.3); BLOOD UREA NITROGEN 15 mg/dL (7-20); CALCIUM 7.4 mg/dL (8.4-10.2); CARBON DIOXIDE 22 mmol/L (22-30); CHLORIDE 109 mmol/L (98-107); GLUCOSE 112 mg/dL (75-110); POTASSIUM 4.6 mmol/L (3.6-5.0); SODIUM 141.4 mmol/L (137-145); TOTAL PROTEIN 6.3 g/dL (6.3-8.2)
[2017-09-02] MEDS: IPRATROPIUM/ALBUTEROL 0.5-2.5 MG/3 ML AMPUL NEB SCH ×3 (07:40→20:31)
--- NOTE | 2017-09-02 09:44 | PDOC PROGRESS REPORT ---
Subjective Progress Note for:: 09/02/17 Subjective:: patient tolerated her procedure well minimal sedation used patient does have some gastritis biopsies are pending I did not see any polyps in the stomach no post procedure complications patient continues to have some nausea she continues to have a distended abdomen would try to get a diagnostic paracentesis to analyse the ascitic fluid. Reason For Visit: DEHYDRATION, LUNG CANCER, WT LOSS Physical Exam Vital Signs: Temp Pulse Resp BP Pulse Ox 98.3 F 104 H 16 130/84 H 100 09/02/17 08:00 09/02/17 08:00 09/02/17 08:00 09/02/17 08:00 09/02/17 08:00 Intake & Output 09/01/17 09/02/17 09/03/17 06:59 06:59 06:59 Intake Total 2071 1286 Output Total 500 Balance 2 786 Weight 76 kg 76 kg General appearance: PRESENT: no acute distress, well-developed, well-nourished Head exam: PRESENT: atraumatic, normocephalic Eye exam: PRESENT: EOMI, PERRLA. ABSENT: scleral icterus Mouth exam: PRESENT: moist Neck exam: ABSENT: meningismus, tenderness, thyromegaly Respiratory exam: PRESENT: symmetrical, unlabored. ABSENT: tachypnea, wheezes Cardiovascular exam: PRESENT: RRR, +S1, +S2 GI/Abdominal exam: PRESENT: ascites, distended, firm, soft. ABSENT: rebound, rigid Extremities exam: ABSENT: joint swelling Musculoskeletal exam: PRESENT: full ROM Neurological exam: PRESENT: oriented to time, oriented to situation, reflexes normal, CN II-XII grossly intact Psychiatric exam: PRESENT: appropriate affect Focused psych exam: ABSENT: restlessness Skin exam: PRESENT: normal color. ABSENT: mottled, pallor, urticaria, vesicles Results Laboratory Results: 09/02/17 05:53 09/02/17 05:53 09/02/17 09/02/17 05:53 05:53 WBC 5.7 RBC 3.52 L Hgb 10.7 L Hct 32.8 L MCV 93 MCH 30.3 MCHC 32.5 RDW 15.2 H Plt Count 216 Seg Neutrophils % 71.1 Lymphocytes % 13.7 Monocytes % 13.5 H Eosinophils % 1.3 Basophils % 0.4 Absolute Neutrophils 4.1 Absolute Lymphocytes 0.8 Absolute Monocytes 0.8 Absolute Eosinophils 0.1 Absolute Basophils 0.0 Sodium 141.4 Potassium 4.6 Chloride 109 H Carbon Dioxide 22 Anion Gap 10 BUN 15 Creatinine 0.73 Est GFR ( Amer) > 60 Est GFR (Non-Af Amer) > 60 Glucose 112 H Calcium 7.4 L Total Bilirubin 0.3 AST 25 ALT 26 Alkaline Phosphatase 82 Total Protein 6.3 Albumin 3.2 L Impressions: Chest CT 08/25/17 00:00 IMPRESSION: 1. Masslike consolidation of the right lung base. The solid portion of this consolidation measures 4.2 cm with adjacent consolidated lungs with air bronchograms. This could represent a mass with postobstructive pneumonic process of the right lower lobe. Alternatively, the entire opacity could represent pneumonic or malignant consolidation. 2. There is a 0.9 cm pleural-based pulmonary nodule in the right midlung best seen on image #28, series 4. There are also 3 nodular opacities in the right upper lung measuring approximately 0.8 cm best seen on image numbers 19 and 20. These could represent neoplastic pulmonary nodules, scarring, or postoperative change. PET/CT may be able to provide additional characterization. 3. Possible tiny bilateral pleural effusions. 4. Moderate to large amount of ascites. This exam was performed according to our departmental dose-optimization program, which includes automated exposure control, adjustment of the mA and/or kV according to patient size and/or use of iterative reconstruction technique. Abdomen Ultrasound 08/26/17 08:22 IMPRESSION: No ultrasound-guided paracentesis performed today. Dr. Moraes notified. Abdomen/Pelvis CT 08/30/17 00:00 IMPRESSION: Moderate ascites. No significant change. Assessment & Plan - Diagnosis (1) Abdominal swelling, generalized Is this a current diagnosis for this admission?: Yes Plan: as noted above, would be ideal to try and sample fluid interventional radiology to try and access loculated fluid (2) Nausea & vomiting Qualifiers: Vomiting type: cyclical vomiting Vomiting Intractability: intractable Qualified Code(s): G43.A1 - Cyclical vomiting, intractable Is this a current diagnosis for this admission?: Yes Plan: will wait on biopsy could be due pressure due to ascitic fluid continue with symptomatic treatment will follow as needed
--- NOTE | 2017-09-02 10:19 | PDOC PROGRESS REPORT ---
Subjective Progress Note for:: 09/02/17 Subjective:: Patient is still complaining from abdominal discomfortPatient have a endoscopy done yesterday by Dr. Harden no other acute finding is not this Her appetite is pretty much same Reason For Visit: DEHYDRATION, LUNG CANCER, WT LOSS Physical Exam Vital Signs: Temp Pulse Resp BP Pulse Ox 98.3 F 104 H 16 130/84 H 100 09/02/17 08:00 09/02/17 08:00 09/02/17 08:00 09/02/17 08:00 09/02/17 08:00 Intake & Output 09/01/17 09/02/17 09/03/17 06:59 06:59 06:59 Intake Total 2071 1286 Output Total 500 Balance 2071 786 Weight 76 kg 76 kg General appearance: PRESENT: no acute distress, well-developed, well-nourished Head exam: PRESENT: atraumatic, normocephalic Eye exam: PRESENT: conjunctiva pink, EOMI, PERRLA. ABSENT: scleral icterus Ear exam: PRESENT: normal external ear exam Mouth exam: PRESENT: moist, tongue midline Neck exam: PRESENT: full ROM. ABSENT: carotid bruit, JVD, lymphadenopathy, thyromegaly Respiratory exam: PRESENT: clear to auscultation darinel Cardiovascular exam: PRESENT: RRR. ABSENT: diastolic murmur, rubs, systolic murmur Pulses: PRESENT: normal dorsalis pedis pul, +2 pedal pulses bilateral Vascular exam: PRESENT: normal capillary refill GI/Abdominal exam: PRESENT: distended, normal bowel sounds, soft. ABSENT: guarding, mass, organolmegaly, rebound, tenderness Rectal exam: PRESENT: deferred Extremities exam: ABSENT: pedal edema Musculoskeletal exam: PRESENT: ambulatory Neurological exam: PRESENT: alert, awake, oriented to person, oriented to place , oriented to time, oriented to situation, CN II-XII grossly intact. ABSENT: motor sensory deficit Psychiatric exam: PRESENT: appropriate affect, normal mood. ABSENT: homicidal ideation, suicidal ideation Skin exam: PRESENT: dry, intact, warm. ABSENT: cyanosis, rash Results Laboratory Results: 09/02/17 05:53 09/02/17 05:53 09/02/17 09/02/17 05:53 05:53 WBC 5.7 RBC 3.52 L Hgb 10.7 L Hct 32.8 L MCV 93 MCH 30.3 MCHC 32.5 RDW 15.2 H Plt Count 216 Seg Neutrophils % 71.1 Lymphocytes % 13.7 Monocytes % 13.5 H Eosinophils % 1.3 Basophils % 0.4 Absolute Neutrophils 4.1 Absolute Lymphocytes 0.8 Absolute Monocytes 0.8 Absolute Eosinophils 0.1 Absolute Basophils 0.0 Sodium 141.4 Potassium 4.6 Chloride 109 H Carbon Dioxide 22 Anion Gap 10 BUN 15 Creatinine 0.73 Est GFR ( Amer) > 60 Est GFR (Non-Af Amer) > 60 Glucose 112 H Calcium 7.4 L Total Bilirubin 0.3 AST 25 ALT 26 Alkaline Phosphatase 82 Total Protein 6.3 Albumin 3.2 L Impressions: Chest CT 08/25/17 00:00 IMPRESSION: 1. Masslike consolidation of the right lung base. The solid portion of this consolidation measures 4.2 cm with adjacent consolidated lungs with air bronchograms. This could represent a mass with postobstructive pneumonic process of the right lower lobe. Alternatively, the entire opacity could represent pneumonic or malignant consolidation. 2. There is a 0.9 cm pleural-based pulmonary nodule in the right midlung best seen on image #28, series 4. There are also 3 nodular opacities in the right upper lung measuring approximately 0.8 cm best seen on image numbers 19 and 20. These could represent neoplastic pulmonary nodules, scarring, or postoperative change. PET/CT may be able to provide additional characterization. 3. Possible tiny bilateral pleural effusions. 4. Moderate to large amount of ascites. This exam was performed according to our departmental dose-optimization program, which includes automated exposure control, adjustment of the mA and/or kV according to patient size and/or use of iterative reconstruction technique. Abdomen Ultrasound 08/26/17 08:22 IMPRESSION: No ultrasound-guided paracentesis performed today. Dr. Moraes notified. Abdomen/Pelvis CT 08/30/17 00:00 IMPRESSION: Moderate ascites. No significant change. Assessment & Plan - Diagnosis (1) Abdominal swelling, generalized Is this a current diagnosis for this admission?: Yes Plan: Most likely related to the malignancy patient have a discussed with extensively follow with oncology for possible chemotherapyAnd if it still does not work consider hospice (2) Nausea & vomiting Qualifiers: Vomiting type: cyclical vomiting Vomiting Intractability: intractable Qualified Code(s): G43.A1 - Cyclical vomiting, intractable Is this a current diagnosis for this admission?: Yes Plan: Currently all stable (3) Bacterial pneumonia Is this a current diagnosis for this admission?: Yes Plan: No sign of any pneumonia (4) Hypertension Qualifiers: Hypertension type: essential hypertension Qualified Code(s): I10 - Essential (primary) hypertension Is this a current diagnosis for this admission?: Yes Plan: Currently all stable (5) Malignant neoplasm of right upper lobe of lung Is this a current diagnosis for this admission?: Yes Plan: Follow-up with oncology (6) Sleep apnea Qualifiers: Sleep apnea type: unspecified type Qualified Code(s): G47.30 - Sleep apnea , unspecified Is this a current diagnosis for this admission?: Yes Plan: Uses CPAP (7) Type 2 diabetes mellitus Qualifiers: Diabetes mellitus complication status: without complication Diabetes mellitus lobsterman insulin use: without lobsterman use Qualified Code(s): E11.9 - Type 2 diabetes mellitus without complications Is this a current diagnosis for this admission?: Yes Plan: Is an A1c was currently on less than 6. 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
[2017-09-02] MEDS: ENOXAPARIN SODIUM INJ 40 MG/0.4 ML DISP.SYRIN SUBCUT SCH (12:49)
[2017-09-02] MEDS: BENZONATATE 100 MG CAPSULE PO SCH ×4 (12:50→21:46)
[2017-09-02] MEDS: GUAIFENESIN 600 MG TABLET.SA PO SCH ×2 (12:52→21:39)
[2017-09-02] MEDS: AMLODIPINE BESYLATE 2.5 MG TABLET PO SCH (12:52)
[2017-09-02] MEDS: DRONABINOL 2.5 MG CAPSULE PO SCH ×2 (12:53→18:38)
[2017-09-02] MEDS: FUROSEMIDE 20 MG TABLET PO SCH (12:53)
[2017-09-02] MEDS: FLUTICASONE/SALMETEROL DISKUS 250-50 MCG/DOSE IH SCH ×2 (12:55→21:38)
[2017-09-02] MEDS: RANOLAZINE 500 MG TAB.SR.12H PO SCH ×2 (12:55→21:38)
--- NOTE | 2017-09-02 13:29 | PDOC PROGRESS REPORT ---
Subjective Progress Note for:: 08/31/17 Subjective:: continued diarrhea Reason For Visit: DEHYDRATION, LUNG CANCER, WT LOSS Physical Exam Vital Signs: Temp Pulse Resp BP Pulse Ox 98.7 F 113 H 18 104/68 98 08/31/17 07:54 08/31/17 07:54 08/31/17 07:54 08/31/17 07:54 08/31/17 09:32 Intake & Output 08/30/17 08/31/17 09/01/17 06:59 06:59 06:59 Intake Total 1465 2410 Balance 1465 2410 Weight 76 kg 76 kg General appearance: PRESENT: cooperative, disheveled, mild distress, obese, well -developed Head exam: PRESENT: atraumatic, normocephalic Eye exam: PRESENT: conjunctiva pale, EOMI. ABSENT: conjunctival injection, conjunctiva pink, nystagmus Mouth exam: PRESENT: dry mucosa, neck supple, tongue midline. ABSENT: laceration, moist Neck exam: ABSENT: carotid bruit, JVD, lymphadenopathy, thyromegaly, tracheal deviation, tracheostomy Respiratory exam: PRESENT: crackles, decreased breath sounds, prolonged expiratory phas, rhonchi, symmetrical, unlabored, wheezes. ABSENT: accessory muscle use, chest wall tenderness, clear to auscultation darinel, rales, retraction , stridor, tachypnea Cardiovascular exam: PRESENT: RRR, +S1, +S2 Pulses: PRESENT: normal radial pulses GI/Abdominal exam: PRESENT: diminished bowel sounds, distended, soft, tenderness Extremities exam: ABSENT: clubbing, joint swelling Musculoskeletal exam: ABSENT: ambulatory, deformity, dislocation Neurological exam: PRESENT: alert, awake Psychiatric exam: PRESENT: flat affect Skin exam: PRESENT: dry, warm Results Laboratory Results: 08/31/17 04:19 08/31/17 04:19 08/31/17 08/31/17 04:19 04:19 WBC 7.1 RBC 3.88 Hgb 11.6 L Hct 36.1 MCV 93 MCH 29.9 MCHC 32.2 RDW 14.9 H Plt Count 223 Seg Neutrophils % 72.8 Lymphocytes % 11.2 L Monocytes % 14.2 H Eosinophils % 1.3 Basophils % 0.5 Absolute Neutrophils 5.2 Absolute Lymphocytes 0.8 Absolute Monocytes 1.0 Absolute Eosinophils 0.1 Absolute Basophils 0.0 Sodium 140.6 Potassium 4.8 Chloride 108 H Carbon Dioxide 21 L Anion Gap 12 BUN 11 Creatinine 0.74 Est GFR ( Amer) > 60 Est GFR (Non-Af Amer) > 60 Glucose 111 H Calcium 7.5 L 08/25/17 20:15 Blood Blood Culture - Final NO GROWTH IN 5 DAYS 08/25/17 20:30 Blood Blood Culture - Final NO GROWTH IN 5 DAYS Impressions: Chest CT 08/25/17 00:00 IMPRESSION: 1. Masslike consolidation of the right lung base. The solid portion of this consolidation measures 4.2 cm with adjacent consolidated lungs with air bronchograms. This could represent a mass with postobstructive pneumonic process of the right lower lobe. Alternatively, the entire opacity could represent pneumonic or malignant consolidation. 2. There is a 0.9 cm pleural-based pulmonary nodule in the right midlung best seen on image #28, series 4. There are also 3 nodular opacities in the right upper lung measuring approximately 0.8 cm best seen on image numbers 19 and 20. These could represent neoplastic pulmonary nodules, scarring, or postoperative change. PET/CT may be able to provide additional characterization. 3. Possible tiny bilateral pleural effusions. 4. Moderate to large amount of ascites. This exam was performed according to our departmental dose-optimization program, which includes automated exposure control, adjustment of the mA and/or kV according to patient size and/or use of iterative reconstruction technique. Abdomen Ultrasound 08/26/17 08:22 IMPRESSION: No ultrasound-guided paracentesis performed today. Dr. Moraes notified. Abdomen/Pelvis CT 08/30/17 00:00 IMPRESSION: Moderate ascites. No significant change. Assessment & Plan - Diagnosis (1) Abdominal swelling, generalized Is this a current diagnosis for this admission?: Yes Plan: Ascites paracentesis including cytology (2) Nausea & vomiting Qualifiers: Vomiting type: cyclical vomiting Vomiting Intractability: intractable Qualified Code(s): G43.A1 - Cyclical vomiting, intractable Is this a current diagnosis for this admission?: Yes Plan: Anti-emetics as needed control is better (3) Pleural effusion Is this a current diagnosis for this admission?: Yes Plan: also ascites
--- NOTE | 2017-09-02 13:32 | PDOC PROGRESS REPORT ---
Subjective Progress Note for:: 09/01/17 Subjective:: continued diarrhea Reason For Visit: DEHYDRATION, LUNG CANCER, WT LOSS Physical Exam Vital Signs: Temp Pulse Resp BP Pulse Ox 97.7 F 118 H 16 116/79 100 09/01/17 08:00 09/01/17 08:00 09/01/17 08:00 09/01/17 08:00 09/01/17 08:00 Intake & Output 08/31/17 09/01/17 09/02/17 06:59 06:59 06:59 Intake Total 2410 2071 Balance 2412071 Weight 76 kg 76 kg General appearance: PRESENT: cooperative, disheveled, mild distress, obese, well -developed. ABSENT: no acute distress, morbidly obese, severe distress Head exam: PRESENT: atraumatic, normocephalic Eye exam: PRESENT: conjunctiva pale, EOMI. ABSENT: conjunctival injection, conjunctiva pink, nystagmus, periorbital swelling, scleral icterus Mouth exam: PRESENT: dry mucosa, neck supple, tongue midline. ABSENT: laceration, moist Neck exam: ABSENT: carotid bruit, JVD, lymphadenopathy, thyromegaly, tracheal deviation, tracheostomy Respiratory exam: PRESENT: decreased breath sounds, prolonged expiratory phas, rales, rhonchi, symmetrical, unlabored, wheezes. ABSENT: accessory muscle use, chest wall tenderness, clear to auscultation darinel, crackles, retraction, stridor , tachypnea Cardiovascular exam: PRESENT: RRR, +S1, +S2 Pulses: PRESENT: normal radial pulses GI/Abdominal exam: PRESENT: diminished bowel sounds, tenderness Extremities exam: ABSENT: clubbing, joint swelling Musculoskeletal exam: ABSENT: deformity, dislocation Neurological exam: PRESENT: alert, awake Psychiatric exam: PRESENT: flat affect Skin exam: PRESENT: dry, warm Results Laboratory Results: 08/31/17 04:19 09/01/17 03:51 09/01/17 03:51 Sodium 140.4 Potassium 4.7 Chloride 111 H Carbon Dioxide 19 L Anion Gap 10 BUN 13 Creatinine 0.70 Est GFR ( Amer) > 60 Est GFR (Non-Af Amer) > 60 Glucose 103 Calcium 7.5 L Impressions: Chest CT 08/25/17 00:00 IMPRESSION: 1. Masslike consolidation of the right lung base. The solid portion of this consolidation measures 4.2 cm with adjacent consolidated lungs with air bronchograms. This could represent a mass with postobstructive pneumonic process of the right lower lobe. Alternatively, the entire opacity could represent pneumonic or malignant consolidation. 2. There is a 0.9 cm pleural-based pulmonary nodule in the right midlung best seen on image #28, series 4. There are also 3 nodular opacities in the right upper lung measuring approximately 0.8 cm best seen on image numbers 19 and 20. These could represent neoplastic pulmonary nodules, scarring, or postoperative change. PET/CT may be able to provide additional characterization. 3. Possible tiny bilateral pleural effusions. 4. Moderate to large amount of ascites. This exam was performed according to our departmental dose-optimization program, which includes automated exposure control, adjustment of the mA and/or kV according to patient size and/or use of iterative reconstruction technique. Abdomen Ultrasound 08/26/17 08:22 IMPRESSION: No ultrasound-guided paracentesis performed today. Dr. Moraes notified. Abdomen/Pelvis CT 08/30/17 00:00 IMPRESSION: Moderate ascites. No significant change. Assessment & Plan - Diagnosis (1) Abdominal swelling, generalized Is this a current diagnosis for this admission?: Yes Plan: Ascites paracentesis including cytology (2) Nausea & vomiting Qualifiers: Vomiting type: cyclical vomiting Vomiting Intractability: intractable Qualified Code(s): G43.A1 - Cyclical vomiting, intractable Is this a current diagnosis for this admission?: Yes Plan: Anti-emetics as needed control is better (3) Pleural effusion Is this a current diagnosis for this admission?: Yes Plan: abdominal CT
--- NOTE | 2017-09-02 13:35 | PDOC PROGRESS REPORT ---
Subjective Progress Note for:: 09/02/17 Subjective:: resolution of diarrhea Reason For Visit: DEHYDRATION, LUNG CANCER, WT LOSS Physical Exam Vital Signs: Temp Pulse Resp BP Pulse Ox 98.3 F 104 H 16 130/84 H 100 09/02/17 08:00 09/02/17 08:00 09/02/17 08:00 09/02/17 08:00 09/02/17 08:00 Intake & Output 09/01/17 09/02/17 09/03/17 06:59 06:59 06:59 Intake Total 207 1286 Output Total 500 Balance 207 786 Weight 76 kg 76 kg General appearance: PRESENT: cooperative, disheveled, mild distress, obese, well -developed. ABSENT: no acute distress, morbidly obese, severe distress, thin Head exam: PRESENT: atraumatic, normocephalic Eye exam: PRESENT: conjunctiva pale, EOMI. ABSENT: conjunctival injection, conjunctiva pink, nystagmus, periorbital swelling, scleral icterus Mouth exam: PRESENT: dry mucosa, neck supple, tongue midline. ABSENT: laceration, moist Neck exam: ABSENT: carotid bruit, JVD, lymphadenopathy, thyromegaly, tracheal deviation, tracheostomy Respiratory exam: PRESENT: decreased breath sounds, prolonged expiratory phas, rales, rhonchi, symmetrical, unlabored, wheezes. ABSENT: accessory muscle use, chest wall tenderness, clear to auscultation darinel, crackles, retraction, stridor , tachypnea Cardiovascular exam: PRESENT: RRR, +S1, +S2 Pulses: PRESENT: normal radial pulses GI/Abdominal exam: PRESENT: diminished bowel sounds, tenderness Extremities exam: ABSENT: clubbing, joint swelling Musculoskeletal exam: ABSENT: deformity, dislocation Neurological exam: PRESENT: awake Psychiatric exam: PRESENT: flat affect Skin exam: PRESENT: dry, warm Results Laboratory Results: 09/02/17 05:53 09/02/17 05:53 09/02/17 09/02/17 05:53 05:53 WBC 5.7 RBC 3.52 L Hgb 10.7 L Hct 32.8 L MCV 93 MCH 30.3 MCHC 32.5 RDW 15.2 H Plt Count 216 Seg Neutrophils % 71.1 Lymphocytes % 13.7 Monocytes % 13.5 H Eosinophils % 1.3 Basophils % 0.4 Absolute Neutrophils 4.1 Absolute Lymphocytes 0.8 Absolute Monocytes 0.8 Absolute Eosinophils 0.1 Absolute Basophils 0.0 Sodium 141.4 Potassium 4.6 Chloride 109 H Carbon Dioxide 22 Anion Gap 10 BUN 15 Creatinine 0.73 Est GFR ( Amer) > 60 Est GFR (Non-Af Amer) > 60 Glucose 112 H Calcium 7.4 L Total Bilirubin 0.3 AST 25 ALT 26 Alkaline Phosphatase 82 Total Protein 6.3 Albumin 3.2 L Impressions: Chest CT 08/25/17 00:00 IMPRESSION: 1. Masslike consolidation of the right lung base. The solid portion of this consolidation measures 4.2 cm with adjacent consolidated lungs with air bronchograms. This could represent a mass with postobstructive pneumonic process of the right lower lobe. Alternatively, the entire opacity could represent pneumonic or malignant consolidation. 2. There is a 0.9 cm pleural-based pulmonary nodule in the right midlung best seen on image #28, series 4. There are also 3 nodular opacities in the right upper lung measuring approximately 0.8 cm best seen on image numbers 19 and 20. These could represent neoplastic pulmonary nodules, scarring, or postoperative change. PET/CT may be able to provide additional characterization. 3. Possible tiny bilateral pleural effusions. 4. Moderate to large amount of ascites. This exam was performed according to our departmental dose-optimization program, which includes automated exposure control, adjustment of the mA and/or kV according to patient size and/or use of iterative reconstruction technique. Abdomen Ultrasound 08/26/17 08:22 IMPRESSION: No ultrasound-guided paracentesis performed today. Dr. Moraes notified. Abdomen/Pelvis CT 08/30/17 00:00 IMPRESSION: Moderate ascites. No significant change. Assessment & Plan - Diagnosis (1) Abdominal swelling, generalized Is this a current diagnosis for this admission?: Yes Plan: Ascites paracentesis including cytology (2) Nausea & vomiting Qualifiers: Vomiting type: cyclical vomiting Vomiting Intractability: intractable Qualified Code(s): G43.A1 - Cyclical vomiting, intractable Is this a current diagnosis for this admission?: Yes Plan: Anti-emetics as needed control is better difficulty with solid foods will consult nutrition (3) Pleural effusion Is this a current diagnosis for this admission?: Yes
--- NOTE | 2017-09-02 14:01 | PDOC PROGRESS REPORT ---
Subjective Progress Note for:: 09/02/17 Subjective:: Pt still w/ abd pain, reviewed EGD from yesterday, no obstruction noted, only gastritis. Reason For Visit: DEHYDRATION, LUNG CANCER, WT LOSS Physical Exam Vital Signs: Temp Pulse Resp BP Pulse Ox 98.1 F 102 H 16 132/85 H 98 09/02/17 12:00 09/02/17 12:00 09/02/17 12:00 09/02/17 12:00 09/02/17 12:00 Intake & Output 09/01/17 09/02/17 09/03/17 06:59 06:59 06:59 Intake Total 2071 1286 Output Total 500 Balance 2071 786 Weight 76 kg 76 kg General appearance: PRESENT: no acute distress, well-developed, well-nourished Head exam: PRESENT: atraumatic, normocephalic Eye exam: PRESENT: conjunctiva pink, EOMI, PERRLA. ABSENT: scleral icterus Ear exam: PRESENT: normal external ear exam Mouth exam: PRESENT: moist, tongue midline Neck exam: ABSENT: carotid bruit, JVD, lymphadenopathy, thyromegaly Respiratory exam: PRESENT: clear to auscultation darinel. ABSENT: rales, rhonchi, wheezes Cardiovascular exam: PRESENT: RRR. ABSENT: diastolic murmur, rubs, systolic murmur Pulses: PRESENT: normal dorsalis pedis pul Vascular exam: PRESENT: normal capillary refill GI/Abdominal exam: PRESENT: normal bowel sounds, soft. ABSENT: distended, guarding, mass, organolmegaly, rebound, tenderness Rectal exam: PRESENT: deferred Extremities exam: PRESENT: full ROM. ABSENT: calf tenderness, clubbing, pedal edema Neurological exam: PRESENT: alert, awake, oriented to person, oriented to place , oriented to time, oriented to situation, CN II-XII grossly intact. ABSENT: motor sensory deficit Psychiatric exam: PRESENT: appropriate affect, normal mood. ABSENT: homicidal ideation, suicidal ideation Skin exam: PRESENT: dry, intact, warm. ABSENT: cyanosis, rash Results Laboratory Results: 09/02/17 05:53 09/02/17 05:53 09/02/17 09/02/17 05:53 05:53 WBC 5.7 RBC 3.52 L Hgb 10.7 L Hct 32.8 L MCV 93 MCH 30.3 MCHC 32.5 RDW 15.2 H Plt Count 216 Seg Neutrophils % 71.1 Lymphocytes % 13.7 Monocytes % 13.5 H Eosinophils % 1.3 Basophils % 0.4 Absolute Neutrophils 4.1 Absolute Lymphocytes 0.8 Absolute Monocytes 0.8 Absolute Eosinophils 0.1 Absolute Basophils 0.0 Sodium 141.4 Potassium 4.6 Chloride 109 H Carbon Dioxide 22 Anion Gap 10 BUN 15 Creatinine 0.73 Est GFR ( Amer) > 60 Est GFR (Non-Af Amer) > 60 Glucose 112 H Calcium 7.4 L Total Bilirubin 0.3 AST 25 ALT 26 Alkaline Phosphatase 82 Total Protein 6.3 Albumin 3.2 L Impressions: Chest CT 08/25/17 00:00 IMPRESSION: 1. Masslike consolidation of the right lung base. The solid portion of this consolidation measures 4.2 cm with adjacent consolidated lungs with air bronchograms. This could represent a mass with postobstructive pneumonic process of the right lower lobe. Alternatively, the entire opacity could represent pneumonic or malignant consolidation. 2. There is a 0.9 cm pleural-based pulmonary nodule in the right midlung best seen on image #28, series 4. There are also 3 nodular opacities in the right upper lung measuring approximately 0.8 cm best seen on image numbers 19 and 20. These could represent neoplastic pulmonary nodules, scarring, or postoperative change. PET/CT may be able to provide additional characterization. 3. Possible tiny bilateral pleural effusions. 4. Moderate to large amount of ascites. This exam was performed according to our departmental dose-optimization program, which includes automated exposure control, adjustment of the mA and/or kV according to patient size and/or use of iterative reconstruction technique. Abdomen Ultrasound 08/26/17 08:22 IMPRESSION: No ultrasound-guided paracentesis performed today. Dr. Moraes notified. Abdomen/Pelvis CT 08/30/17 00:00 IMPRESSION: Moderate ascites. No significant change. Assessment & Plan - Diagnosis (1) Nausea & vomiting Qualifiers: Vomiting type: cyclical vomiting Vomiting Intractability: intractable Qualified Code(s): G43.A1 - Cyclical vomiting, intractable Is this a current diagnosis for this admission?: Yes Plan: Cont w/ current management, seems improved (2) Malignant neoplasm of right upper lobe of lung Is this a current diagnosis for this admission?: Yes Plan: further rx planned as outpt - Time Time Spent with patient: 35 or more minutes Disposition: encouraged pt to eat more and be up in chair TID along w/ walking chavis, cont to monitor thru and see how pt is doing by tuesday, if able to tolerate po and can get around somewhat, we will d/c, discussed treatment options again w/ pt and pt is realistic about expectations - Inpatient Certification Based on my medical assessment, after consideration of the patient's comorbidities, presenting symptoms, or acuity I expect that the services needed warrant INPATIENT care.: Yes I certify that my determination is in accordance with my understanding of Medicare's requirements for reasonable and necessary INPATIENT services [42 CFR 412.3e].: Yes Medical Necessity: Need For Continuous Telemetry Monitoring
[2017-09-02] MEDS: LATANOPROST 0.005% OPH SOLN 2.5 ML OU SCH (21:39)
[2017-09-02] MEDS: MONTELUKAST SODIUM 10 MG TABLET PO SCH (21:39)
[2017-09-03] MEDS: OXYCODONE-ACETAMINOPHEN 5-325 MG TABLET PO SCH ×5 (00:59→23:25)
[2017-09-03] MEDS: CLONIDINE HCL 0.1 MG TABLET PO SCH ×3 (06:35→22:30)
[2017-09-03] MEDS: LANSOPRAZOLE 30 MG TAB.RAP.DR PO SCH ×2 (06:35→17:55)
[2017-09-03] MEDS: NORMAL SALINE 1000 ML 1,000 ML IV PRN ×2 (06:40→23:27)
[2017-09-03 07:03] LABS: ANION GAP 13 (5-19); BLOOD UREA NITROGEN 18 mg/dL (7-20); CALCIUM 7.2 mg/dL (8.4-10.2); CARBON DIOXIDE 22 mmol/L (22-30); CHLORIDE 107 mmol/L (98-107); GLUCOSE 112 mg/dL (75-110); POTASSIUM 4.2 mmol/L (3.6-5.0); SODIUM 141.6 mmol/L (137-145)
[2017-09-03] MEDS: IPRATROPIUM/ALBUTEROL 0.5-2.5 MG/3 ML AMPUL NEB SCH ×2 (07:49→14:09)
[2017-09-03] MEDS: RANOLAZINE 500 MG TAB.SR.12H PO SCH ×2 (09:16→22:30)
[2017-09-03] MEDS: AMLODIPINE BESYLATE 2.5 MG TABLET PO SCH (09:16)
[2017-09-03] MEDS: DRONABINOL 2.5 MG CAPSULE PO SCH ×2 (09:17→17:55)
[2017-09-03] MEDS: ENOXAPARIN SODIUM INJ 40 MG/0.4 ML DISP.SYRIN SUBCUT SCH (09:17)
[2017-09-03] MEDS: BENZONATATE 100 MG CAPSULE PO SCH ×4 (09:17→22:30)
[2017-09-03] MEDS: FUROSEMIDE 20 MG TABLET PO SCH (09:17)
[2017-09-03] MEDS: GUAIFENESIN 600 MG TABLET.SA PO SCH ×2 (09:17→22:30)
[2017-09-03] MEDS: FLUTICASONE/SALMETEROL DISKUS 250-50 MCG/DOSE IH SCH ×2 (09:18→22:30)
--- NOTE | 2017-09-03 11:08 | PDOC PROGRESS REPORT ---
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, did get up in chair but did not yet walk the halls, eating about 25-50% of meals, not having nausea or vomiting currently Reason For Visit: DEHYDRATION, LUNG CANCER, WT LOSS Physical Exam Vital Signs: Temp Pulse Resp BP Pulse Ox 97.4 F 95 16 120/64 97 09/03/17 08:00 09/03/17 08:00 09/03/17 08:00 09/03/17 08:00 09/03/17 08:00 Intake & Output 09/02/17 09/03/17 09/04/17 06:59 06:59 06:59 Intake Total 1286 2780 Output Total 500 250 Balance 786 2530 Weight 76 kg 77.9 kg General appearance: PRESENT: no acute distress, well-developed, well-nourished Head exam: PRESENT: atraumatic, normocephalic Eye exam: PRESENT: conjunctiva pink, EOMI, PERRLA. ABSENT: scleral icterus Ear exam: PRESENT: normal external ear exam Mouth exam: PRESENT: moist, tongue midline Neck exam: ABSENT: carotid bruit, JVD, lymphadenopathy, thyromegaly Respiratory exam: PRESENT: clear to auscultation darinel. ABSENT: rales, rhonchi, wheezes Cardiovascular exam: PRESENT: RRR. ABSENT: diastolic murmur, rubs, systolic murmur Pulses: PRESENT: normal dorsalis pedis pul Vascular exam: PRESENT: normal capillary refill GI/Abdominal exam: PRESENT: normal bowel sounds, soft. ABSENT: distended, guarding, mass, organolmegaly, rebound, tenderness Rectal exam: PRESENT: deferred Extremities exam: PRESENT: full ROM. ABSENT: calf tenderness, clubbing, pedal edema Neurological exam: PRESENT: alert, awake, oriented to person, oriented to place , oriented to time, oriented to situation, CN II-XII grossly intact. ABSENT: motor sensory deficit Psychiatric exam: PRESENT: appropriate affect, normal mood. ABSENT: homicidal ideation, suicidal ideation Skin exam: PRESENT: dry, intact, warm. ABSENT: cyanosis, rash Results Laboratory Results: 09/02/17 05:53 09/03/17 06:31 09/03/17 06:31 Sodium 141.6 Potassium 4.2 Chloride 107 Carbon Dioxide 22 Anion Gap 13 BUN 18 Creatinine 0.73 Est GFR ( Amer) > 60 Est GFR (Non-Af Amer) > 60 Glucose 112 H Calcium 7.2 L Impressions: Chest CT 08/25/17 00:00 IMPRESSION: 1. Masslike consolidation of the right lung base. The solid portion of this consolidation measures 4.2 cm with adjacent consolidated lungs with air bronchograms. This could represent a mass with postobstructive pneumonic process of the right lower lobe. Alternatively, the entire opacity could represent pneumonic or malignant consolidation. 2. There is a 0.9 cm pleural-based pulmonary nodule in the right midlung best seen on image #28, series 4. There are also 3 nodular opacities in the right upper lung measuring approximately 0.8 cm best seen on image numbers 19 and 20. These could represent neoplastic pulmonary nodules, scarring, or postoperative change. PET/CT may be able to provide additional characterization. 3. Possible tiny bilateral pleural effusions. 4. Moderate to large amount of ascites. This exam was performed according to our departmental dose-optimization program, which includes automated exposure control, adjustment of the mA and/or kV according to patient size and/or use of iterative reconstruction technique. Abdomen Ultrasound 08/26/17 08:22 IMPRESSION: No ultrasound-guided paracentesis performed today. Dr. Moraes notified. Abdomen/Pelvis CT 08/30/17 00:00 IMPRESSION: Moderate ascites. No significant change. Assessment & Plan - Diagnosis (1) Nausea & vomiting Qualifiers: Vomiting type: cyclical vomiting Vomiting Intractability: intractable Qualified Code(s): G43.A1 - Cyclical vomiting, intractable Is this a current diagnosis for this admission?: Yes Plan: Improved, related to disease, con't to encourage increased dietary intake and fluid intake (2) Malignant neoplasm of right upper lobe of lung Is this a current diagnosis for this admission?: Yes Plan: Further therapy planned as outpt - Time Time Spent with patient: 35 or more minutes - Inpatient Certification Based on my medical assessment, after consideration of the patient's comorbidities, presenting symptoms, or acuity I expect that the services needed warrant INPATIENT care.: Yes I certify that my determination is in accordance with my understanding of Medicare's requirements for reasonable and necessary INPATIENT services [42 CFR 412.3e].: Yes Medical Necessity: Need For IV Fluids, Risk of Complication if Not Cared For in Hospital
--- NOTE | 2017-09-03 11:54 | PDOC PROGRESS REPORT ---
Subjective Progress Note for:: 09/03/17 Subjective:: Patient is still complaining from abdominal discomfortPatient have a endoscopy done yesterday by Dr. Harden no other acute finding is not this Her appetite is pretty much same Reason For Visit: DEHYDRATION, LUNG CANCER, WT LOSS Physical Exam Vital Signs: Temp Pulse Resp BP Pulse Ox 97.4 F 95 16 120/64 97 09/03/17 08:00 09/03/17 08:00 09/03/17 08:00 09/03/17 08:00 09/03/17 08:00 Intake & Output 09/02/17 09/03/17 09/04/17 06:59 06:59 06:59 Intake Total 1286 2780 Output Total 500 250 Balance 786 2530 Weight 76 kg 77.9 kg General appearance: PRESENT: no acute distress, well-developed, well-nourished Head exam: PRESENT: atraumatic, normocephalic Eye exam: PRESENT: conjunctiva pink, EOMI, PERRLA. ABSENT: scleral icterus Ear exam: PRESENT: normal external ear exam Mouth exam: PRESENT: moist, tongue midline Neck exam: PRESENT: full ROM. ABSENT: carotid bruit, JVD, lymphadenopathy, thyromegaly Respiratory exam: PRESENT: clear to auscultation darinel Cardiovascular exam: PRESENT: RRR. ABSENT: diastolic murmur, rubs, systolic murmur Pulses: PRESENT: normal dorsalis pedis pul, +2 pedal pulses bilateral Vascular exam: PRESENT: normal capillary refill GI/Abdominal exam: PRESENT: normal bowel sounds, soft. ABSENT: distended, guarding, mass, organolmegaly, rebound, tenderness Rectal exam: PRESENT: deferred Extremities exam: ABSENT: pedal edema Neurological exam: PRESENT: alert, awake, oriented to person, oriented to place , oriented to time, oriented to situation, CN II-XII grossly intact. ABSENT: motor sensory deficit Psychiatric exam: PRESENT: appropriate affect, normal mood. ABSENT: homicidal ideation, suicidal ideation Skin exam: PRESENT: dry, intact, warm. ABSENT: cyanosis, rash Results Laboratory Results: 09/02/17 05:53 09/03/17 06:31 09/03/17 06:31 Sodium 141.6 Potassium 4.2 Chloride 107 Carbon Dioxide 22 Anion Gap 13 BUN 18 Creatinine 0.73 Est GFR ( Amer) > 60 Est GFR (Non-Af Amer) > 60 Glucose 112 H Calcium 7.2 L Impressions: Chest CT 08/25/17 00:00 IMPRESSION: 1. Masslike consolidation of the right lung base. The solid portion of this consolidation measures 4.2 cm with adjacent consolidated lungs with air bronchograms. This could represent a mass with postobstructive pneumonic process of the right lower lobe. Alternatively, the entire opacity could represent pneumonic or malignant consolidation. 2. There is a 0.9 cm pleural-based pulmonary nodule in the right midlung best seen on image #28, series 4. There are also 3 nodular opacities in the right upper lung measuring approximately 0.8 cm best seen on image numbers 19 and 20. These could represent neoplastic pulmonary nodules, scarring, or postoperative change. PET/CT may be able to provide additional characterization. 3. Possible tiny bilateral pleural effusions. 4. Moderate to large amount of ascites. This exam was performed according to our departmental dose-optimization program, which includes automated exposure control, adjustment of the mA and/or kV according to patient size and/or use of iterative reconstruction technique. Abdomen Ultrasound 08/26/17 08:22 IMPRESSION: No ultrasound-guided paracentesis performed today. Dr. Moraes notified. Abdomen/Pelvis CT 08/30/17 00:00 IMPRESSION: Moderate ascites. No significant change. Assessment & Plan - Diagnosis (1) Abdominal swelling, generalized Is this a current diagnosis for this admission?: Yes Plan: Most likely related to the malignancy patient have a discussed with extensively follow with oncology for possible chemotherapyAnd if it still does not work consider hospice (2) Nausea & vomiting Qualifiers: Vomiting type: cyclical vomiting Vomiting Intractability: intractable Qualified Code(s): G43.A1 - Cyclical vomiting, intractable Is this a current diagnosis for this admission?: Yes Plan: Currently all stable (3) Bacterial pneumonia Is this a current diagnosis for this admission?: Yes Plan: No sign of any pneumonia (4) Hypertension Qualifiers: Hypertension type: essential hypertension Qualified Code(s): I10 - Essential (primary) hypertension Is this a current diagnosis for this admission?: Yes Plan: Currently all stable (5) Malignant neoplasm of right upper lobe of lung Is this a current diagnosis for this admission?: Yes Plan: Follow-up with oncology (6) Sleep apnea Qualifiers: Sleep apnea type: unspecified type Qualified Code(s): G47.30 - Sleep apnea , unspecified Is this a current diagnosis for this admission?: Yes (7) Type 2 diabetes mellitus Qualifiers: Diabetes mellitus complication status: without complication Diabetes mellitus alf insulin use: without predatory animal exterminator use Qualified Code(s): E11.9 - Type 2 diabetes mellitus without complications Is this a current diagnosis for this admission?: Yes Plan: Is an A1c was currently on less than 6. All the medications discontinues the sliding scale - Time Time Spent with patient: 15-24 minutes Medications reviewed and adjusted accordingly: Yes Within: Other - Inpatient Certification Medical Necessity: Significant Comorbidiites Make Outpatient Treatment Too Risky - Plan Summary Plan Summary: See other MD orders
[2017-09-03] MEDS: MONTELUKAST SODIUM 10 MG TABLET PO SCH (22:30)
[2017-09-03] MEDS: LATANOPROST 0.005% OPH SOLN 2.5 ML OU SCH (22:30)
[2017-09-04] MEDS: CLONIDINE HCL 0.1 MG TABLET PO SCH ×3 (06:45→22:49)
[2017-09-04] MEDS: OXYCODONE-ACETAMINOPHEN 5-325 MG TABLET PO SCH ×4 (06:45→23:24)
[2017-09-04] MEDS: LANSOPRAZOLE 30 MG TAB.RAP.DR PO SCH ×2 (06:45→17:42)
[2017-09-04] MEDS: FUROSEMIDE 20 MG TABLET PO SCH (09:13)
[2017-09-04] MEDS: RANOLAZINE 500 MG TAB.SR.12H PO SCH ×2 (09:13→22:48)
[2017-09-04] MEDS: FLUTICASONE/SALMETEROL DISKUS 250-50 MCG/DOSE IH SCH ×2 (09:13→22:47)
[2017-09-04] MEDS: ENOXAPARIN SODIUM INJ 40 MG/0.4 ML DISP.SYRIN SUBCUT SCH (09:13)
[2017-09-04] MEDS: DRONABINOL 2.5 MG CAPSULE PO SCH ×2 (09:14→17:42)
[2017-09-04] MEDS: AMLODIPINE BESYLATE 2.5 MG TABLET PO SCH (09:14)
[2017-09-04] MEDS: BENZONATATE 100 MG CAPSULE PO SCH ×4 (09:14→22:48)
[2017-09-04] MEDS: GUAIFENESIN 600 MG TABLET.SA PO SCH ×2 (09:14→22:48)
--- NOTE | 2017-09-04 17:28 | PROGRESS NOTE E ---
Progress Note NAME: SARA AMAYA : 1955 AGE: 61Y DATE: 09/04/2017 ROOM: 527 SUBJECTIVE: The patient is doing a little bit better. She was able to eat a little bit. She got up and walked in the chavis with assistance. OBJECTIVE: VITAL SIGNS: Reviewed. GENERAL: Alert and oriented. HEENT: EOMs clear. CHEST: Clear to auscultation. ABDOMEN: Soft. Some tenderness in the deep abdominal area. EXTREMITIES: No CCE. LABORATORY DATA: Reviewed. ASSESSMENT: A 61-YEAR-OLD FEMALE PRESENTING WITH SEVERE NAUSEA, VOMITING AND DEHYDRATION IN THE SETTING OF STAGE IV LUNG CANCER. PLAN: 1. Nausea and vomiting, improving. The patient is doing better. 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 2. Stage IV lung cancer. Today I had a long discussion with the son. We had a regan discussion. We spent about 45 minutes in discussion. At present we would still consider next-line therapy as an outpatient. 3. Will follow. DICTATING PHYSICIAN: LLOYD WHITE M.D. [id number] PHY#: [id number] ID: [id number] JOB#: [id number] ACCT: [id number] cc: >
--- NOTE | 2017-09-04 21:03 | PROGRESS NOTE E ---
Progress Note NAME: SARA AMAYA : 1955 AGE: 61Y DATE: 09/04/2017 ROOM: 527 SUBJECTIVE: The patient is presently doing well. The patient denied any chest pain, denied any shortness of breath. The patient's p.o. intake is still fair. The patient walked yesterday. The patient, otherwise, no other events happened. OBJECTIVE: VITAL SIGNS: Currently stable. GENERAL: The patient is alert, awake, oriented x3. HEAD AND NECK: Normocephalic. PERRLA. LUNGS: No wheezing, no rales. HEART: S1, S2 is present. ABDOMEN: *------* distended, soft. Bowel sounds present. EXTREMITIES: No edema. NEUROLOGIC: The patient moves all 4 extremities. No focal weaknesses seen. ASSESSMENT: 1. ABDOMINAL PAIN, NAUSEA, VOMITING. 2. ASCITES, MOST LIKELY MALIGNANT. UNABLE TO DO THE PARACENTESIS. 3. STAGE IV LUNG CANCER WITH METASTATIC DISEASE. 4. HISTORY OF BREAST CANCER. 5. HYPERTENSION VERSUS COPD. PLAN: At this point continue the current medications. Very extensive discussion with the son at the bedside regarding the patient's current condition. The patient is probably hopefully discharged tomorrow and see how she does and follow with oncology and possible last option is chemotherapy. Otherwise, the patient is going to hospice care. DICTATING PHYSICIAN: TYLER SANDOVAL M.D. [id number] PHY#: [id number] ID: [id number] JOB#: [id number] ACCT: [id number] cc: >
[2017-09-04] MEDS: MONTELUKAST SODIUM 10 MG TABLET PO SCH (22:48)
[2017-09-04] MEDS: LATANOPROST 0.005% OPH SOLN 2.5 ML OU SCH (22:48)
[2017-09-04] MEDS ORDERED: CALCIUM CARBONATE 500 MG TABLET PO ONE (23:30)
[2017-09-05] MEDS: NORMAL SALINE 1000 ML 1,000 ML IV PRN (05:59)
[2017-09-05] MEDS: LANSOPRAZOLE 30 MG TAB.RAP.DR PO SCH (05:59)
[2017-09-05] MEDS: OXYCODONE-ACETAMINOPHEN 5-325 MG TABLET PO SCH (05:59)
[2017-09-05] MEDS: CLONIDINE HCL 0.1 MG TABLET PO SCH (05:59)
--- NOTE | 2017-09-05 08:06 | PDOC PROGRESS REPORT ---
Subjective Progress Note for:: 09/05/17 Subjective:: No acute events overnight, patient was able to walk the halls with a walker. Eating is been about the same, she still has not had a bowel movement with MiraLAX. Reason For Visit: DEHYDRATION, LUNG CANCER, WT LOSS Physical Exam Vital Signs: Temp Pulse Resp BP Pulse Ox 98.2 F 96 16 137/87 H 99 09/04/17 23:10 09/05/17 07:00 09/04/17 23:10 09/04/17 23:10 09/04/17 23:10 Intake & Output 09/04/17 09/05/17 09/06/17 06:59 06:59 06:59 Intake Total 3308 1542 Output Total 650 Balance 2658 1542 Weight 77.9 kg 80.8 kg General appearance: PRESENT: no acute distress, well-developed, well-nourished Head exam: PRESENT: atraumatic, normocephalic Eye exam: PRESENT: conjunctiva pink, EOMI, PERRLA. ABSENT: scleral icterus Ear exam: PRESENT: normal external ear exam Mouth exam: PRESENT: moist, tongue midline Neck exam: ABSENT: carotid bruit, JVD, lymphadenopathy, thyromegaly Respiratory exam: PRESENT: clear to auscultation darinel. ABSENT: rales, rhonchi, wheezes Cardiovascular exam: PRESENT: RRR. ABSENT: diastolic murmur, rubs, systolic murmur Pulses: PRESENT: normal dorsalis pedis pul Vascular exam: PRESENT: normal capillary refill GI/Abdominal exam: PRESENT: normal bowel sounds, soft. ABSENT: distended, guarding, mass, organolmegaly, rebound, tenderness Rectal exam: PRESENT: deferred Extremities exam: PRESENT: full ROM. ABSENT: calf tenderness, clubbing, pedal edema Neurological exam: PRESENT: alert, awake, oriented to person, oriented to place , oriented to time, oriented to situation, CN II-XII grossly intact. ABSENT: motor sensory deficit Psychiatric exam: PRESENT: appropriate affect, normal mood. ABSENT: homicidal ideation, suicidal ideation Skin exam: PRESENT: dry, intact, warm. ABSENT: cyanosis, rash Results Laboratory Results: 09/02/17 05:53 Impressions: Chest CT 08/25/17 00:00 IMPRESSION: 1. Masslike consolidation of the right lung base. The solid portion of this consolidation measures 4.2 cm with adjacent consolidated lungs with air bronchograms. This could represent a mass with postobstructive pneumonic process of the right lower lobe. Alternatively, the entire opacity could represent pneumonic or malignant consolidation. 2. There is a 0.9 cm pleural-based pulmonary nodule in the right midlung best seen on image #28, series 4. There are also 3 nodular opacities in the right upper lung measuring approximately 0.8 cm best seen on image numbers 19 and 20. These could represent neoplastic pulmonary nodules, scarring, or postoperative change. PET/CT may be able to provide additional characterization. 3. Possible tiny bilateral pleural effusions. 4. Moderate to large amount of ascites. This exam was performed according to our departmental dose-optimization program, which includes automated exposure control, adjustment of the mA and/or kV according to patient size and/or use of iterative reconstruction technique. Abdomen Ultrasound 08/26/17 08:22 IMPRESSION: No ultrasound-guided paracentesis performed today. Dr. Moraes notified. Abdomen/Pelvis CT 08/30/17 00:00 IMPRESSION: Moderate ascites. No significant change. Assessment & Plan - Diagnosis (1) Nausea & vomiting Qualifiers: Vomiting type: cyclical vomiting Vomiting Intractability: intractable Qualified Code(s): G43.A1 - Cyclical vomiting, intractable Is this a current diagnosis for this admission?: Yes Plan: Improved, will give enema today, but I believe from a oncologic standpoint patient can be discharged home today. (2) Malignant neoplasm of right upper lobe of lung Is this a current diagnosis for this admission?: Yes Plan: Plan for further therapy as an outpatient, patient will have follow-up in our office within 1 week.
[2017-09-05] MEDS ORDERED: NA PHOS,M-B/NA PHOS,DI-BA (ADULT) 133 ML ENEMA PR ONE ×2 (08:33→09:15)
[2017-09-05] MEDS ORDERED: CALCIUM CARBONATE 500 MG TABLET PO SCH (10:00)
[2017-09-05] MEDS: ENOXAPARIN SODIUM INJ 40 MG/0.4 ML DISP.SYRIN SUBCUT SCH (10:13)
[2017-09-05] MEDS: BENZONATATE 100 MG CAPSULE PO SCH (10:22)
[2017-09-05] MEDS: FLUTICASONE/SALMETEROL DISKUS 250-50 MCG/DOSE IH SCH (10:22)
[2017-09-05] MEDS: AMLODIPINE BESYLATE 2.5 MG TABLET PO SCH (10:22)
[2017-09-05] MEDS: DRONABINOL 2.5 MG CAPSULE PO SCH (10:22)
[2017-09-05] MEDS: GUAIFENESIN 600 MG TABLET.SA PO SCH (10:22)
[2017-09-05] MEDS: RANOLAZINE 500 MG TAB.SR.12H PO SCH (10:23)
[2017-09-05] MEDS: FUROSEMIDE 20 MG TABLET PO SCH (10:23)
[2017-09-05] MEDS: MORPHINE SULFATE 10 MG/ML INJ IV PRN (10:26)
--- NOTE | 2017-09-05 10:56 | PDOC DISCHARGE SUMMARY ---
General - Admit/Disc Date/PCP Admission Date/Primary Care Provider: 08/25/17 18:18 VIOLETA JAVED Discharge Date: 09/05/17 - Discharge Diagnosis (1) Abdominal swelling, generalized Is this a current diagnosis for this admission?: Yes Summary: Currently all stable most likely related to the advance cancers with the metastases in the probably omentum (2) Nausea & vomiting Is this a current diagnosis for this admission?: Yes Summary: all resolved (3) Bacterial pneumonia Is this a current diagnosis for this admission?: Yes Summary: No sign of any bacterial infections most likely related to the malignancy (4) Hypertension Is this a current diagnosis for this admission?: Yes Summary: Currently all stable (5) Malignant neoplasm of right upper lobe of lung Is this a current diagnosis for this admission?: Yes Summary: Follow with the oncology (6) Sleep apnea Is this a current diagnosis for this admission?: Yes Summary: Continues uses CPAP (7) Type 2 diabetes mellitus Is this a current diagnosis for this admission?: Yes Summary: Currently as needed insulin only - Additional Information Resuscitation Status: Full Code Discharge Diet: Diabetic Discharge Activity: Activity As Tolerated Prescriptions: Calcium Carbonate [Os-Andi 500 mg Tablet (Oyster-Shell)] 500 mg PO BID #60 tablet Dronabinol [Marinol 2.5 mg Capsule] 5 mg PO BID #60 capsule Guaifenesin [Mucinex Sr 600 mg Tablet.sa] 600 mg PO Q12 #60 tablet.sa Home Medications: Albuterol Sulfate [Proair HFA Inhalation Aerosol 8.5 gm MDI] 2 puff IH Q4HP PRN 08/25/17 Amlodipine Besylate [Norvasc 2.5 mg Tablet] 2.5 mg PO DAILY 08/25/17 Benzonatate [Tessalon Perle 100 mg Capsule] 200 mg PO QID 08/25/17 Brimonidine Tartrate [Alphagan P] 1 drop OU BID 08/25/17 Clonidine HCl [Catapres 0.1 mg Tablet] 0.1 mg PO Q8 08/25/17 Esomeprazole Mag Trihydrate [Nexium] 40 mg PO DAILY 08/25/17 Fluticasone/Salmeterol [Advair 250-50 Diskus 28 dose] 1 puff IH Q12 08/25/17 Latanoprost [Xalatan] 1 drop OU QHS 08/25/17 Montelukast Sodium [Singulair 10 mg Tablet] 10 mg PO QHS 08/25/17 Ranolazine [Ranexa 500 mg Tab.sr] 500 mg PO Q12 08/25/17 Tamoxifen Citrate 20 mg PO DAILY 08/25/17 Calcium Carbonate [Os-Andi 500 mg Tablet (Oyster-Shell)] 500 mg PO BID #60 tablet 09/05/17 Dronabinol [Marinol 2.5 mg Capsule] 5 mg PO BID #60 capsule 09/05/17 Guaifenesin [Mucinex Sr 600 mg Tablet.sa] 600 mg PO Q12 #60 tablet.sa 09/05/17 History of Present Illness History of Present Illness: 61-year-old female well-known to [facility] with non-small cell lung cancer being treated by Dr. Munoz. Patient complained of increasing weakness before Thanksgiving they got progressively worse she had a bronchoscopy at [facility] early May results of these is not currently available. She complains of intermittent episodes of nausea and vomiting associated with intermittent constipation and diarrhea she denies coffee-ground emesis hematemesis or bright bright red blood per rectum or melena. She has an occasional cough but this is much less significant and has been in the past. She denies fevers or chills. She has lost a large amount of weight in a short amount of timeShe has had no appetite in the last 2-1/2 months Patient's recently came to see the office couple of times with the blood work was done and increase the p.o. fluid but is still not getting better She is currently getting the immunotherapy went to see Dr conner And he felt patient was dehydrated and not looking good sent to the office and we directly admit the patient's and patient's potassium was low Patient have a CT of the chest was done was increasing some mass with possible pneumonia and the patient CT abdomen pelvis with some ascites which is new finding Hospital Course Hospital Course: This is a 61-year-old females with advanced lung cancers which pretty much failed immunotherapy received the chemo and other treatment in the past physically and now diagnosed with a new onset of bursitis which unable to tap it but most likely related to the malignancy Patient underwent for the endoscopy which is did not follow any obstructions Patient CT of the chest so some advanced disease in the oncology was consulted and suggest the patient is not responding to the immunotherapy now the last option is to try to give a chemotherapy once the patient's get better Since seen by the pulmonary and the gastroenterology Patient's currently denied any other symptoms walk in the hallway with the walker and the patient's at this point discharge home with the stable conditions with the poor prognosis due to the advanced cancers Very extensive discussions with the patient and the son and the bedside understand very well follow with the oncology in a week and try the chemotherapy for his patients remain strong We will arrange the home health and physical therapy Physical Exam Vital Signs: Temp Pulse Resp BP Pulse Ox 97.8 F 100 16 131/79 H 96 09/05/17 07:20 09/05/17 07:20 09/05/17 07:20 09/05/17 07:20 09/05/17 07:20 Intake & Output 09/04/17 09/05/17 09/06/17 06:59 06:59 06:59 Intake Total 3308 1542 Output Total 650 Balance 2658 1542 Weight 77.9 kg 80.8 kg General appearance: PRESENT: no acute distress, well-developed, well-nourished Head exam: PRESENT: atraumatic, normocephalic Eye exam: PRESENT: conjunctiva pink, EOMI, PERRLA. ABSENT: scleral icterus Ear exam: PRESENT: normal external ear exam Mouth exam: PRESENT: moist, tongue midline Neck exam: PRESENT: full ROM. ABSENT: carotid bruit, JVD, lymphadenopathy, thyromegaly Respiratory exam: PRESENT: clear to auscultation darinel Cardiovascular exam: PRESENT: RRR. ABSENT: diastolic murmur, rubs, systolic murmur Pulses: PRESENT: normal dorsalis pedis pul, +2 pedal pulses bilateral Vascular exam: PRESENT: normal capillary refill GI/Abdominal exam: PRESENT: ascites, normal bowel sounds, soft. ABSENT: distended, guarding, mass, organolmegaly, rebound, tenderness Rectal exam: PRESENT: deferred Extremities exam: ABSENT: pedal edema Musculoskeletal exam: PRESENT: ambulatory Neurological exam: PRESENT: alert, awake, oriented to person, oriented to place , oriented to time, oriented to situation, CN II-XII grossly intact. ABSENT: motor sensory deficit Psychiatric exam: PRESENT: appropriate affect, normal mood. ABSENT: homicidal ideation, suicidal ideation Skin exam: PRESENT: dry, intact, warm. ABSENT: cyanosis, rash Results Laboratory Results: 09/02/17 05:53 Impressions: Chest CT 08/25/17 00:00 IMPRESSION: 1. Masslike consolidation of the right lung base. The solid portion of this consolidation measures 4.2 cm with adjacent consolidated lungs with air bronchograms. This could represent a mass with postobstructive pneumonic process of the right lower lobe. Alternatively, the entire opacity could represent pneumonic or malignant consolidation. 2. There is a 0.9 cm pleural-based pulmonary nodule in the right midlung best seen on image #28, series 4. There are also 3 nodular opacities in the right upper lung measuring approximately 0.8 cm best seen on image numbers 19 and 20. These could represent neoplastic pulmonary nodules, scarring, or postoperative change. PET/CT may be able to provide additional characterization. 3. Possible tiny bilateral pleural effusions. 4. Moderate to large amount of ascites. This exam was performed according to our departmental dose-optimization program, which includes automated exposure control, adjustment of the mA and/or kV according to patient size and/or use of iterative reconstruction technique. Abdomen Ultrasound 08/26/17 08:22 IMPRESSION: No ultrasound-guided paracentesis performed today. Dr. Moraes notified. Abdomen/Pelvis CT 08/30/17 00:00 IMPRESSION: Moderate ascites. No significant change. Plan Time Spent: Greater than 30 Minutes - Discharge home with the home health and physical therapy follow with outpatient oncology
[2017-09-05 11:18] VITALS: BP 115/70
[2017-09-05 12:21] LABS: BLOOD UREA NITROGEN 14 mg/dL (7-20); CALCIUM 6.8 mg/dL (8.4-10.2); GLUCOSE 105 mg/dL (75-110); POTASSIUM 4.1 mmol/L (3.6-5.0)
[2017-09-05 12:22] LABS: ANION GAP 13 (5-19); CARBON DIOXIDE 22 mmol/L (22-30); CHLORIDE 106 mmol/L (98-107); SODIUM 140.8 mmol/L (137-145)
--- NOTE | 2017-09-05 13:54 | PDOC PROGRESS REPORT ---
Subjective Progress Note for:: 09/05/17 Subjective:: Continue to difficulty swallowing complaining of epigastric tenderness Reason For Visit: DEHYDRATION, LUNG CANCER, WT LOSS Physical Exam Vital Signs: Temp Pulse Resp BP Pulse Ox 97.8 F 100 16 115/70 96 09/05/17 11:13 09/05/17 11:13 09/05/17 11:13 09/05/17 11:13 09/05/17 11:13 Intake & Output 09/04/17 09/05/17 09/06/17 06:59 06:59 06:59 Intake Total 3308 1542 Output Total 650 Balance 2658 1542 Weight 77.9 kg 80.8 kg General appearance: PRESENT: no acute distress, cooperative, disheveled, obese. ABSENT: mild distress, morbidly obese Head exam: PRESENT: atraumatic, normocephalic Eye exam: PRESENT: conjunctiva pale, EOMI. ABSENT: conjunctival injection, conjunctiva pink, nystagmus, periorbital swelling, scleral icterus Mouth exam: PRESENT: dry mucosa, neck supple, tongue midline. ABSENT: laceration, moist Neck exam: ABSENT: carotid bruit, JVD, lymphadenopathy, thyromegaly, tracheal deviation, tracheostomy Respiratory exam: PRESENT: crackles, decreased breath sounds, prolonged expiratory phas, rhonchi, symmetrical, unlabored. ABSENT: accessory muscle use , chest wall tenderness, clear to auscultation darinel, rales, retraction, stridor, tachypnea Cardiovascular exam: PRESENT: RRR, +S1, +S2 Pulses: PRESENT: normal radial pulses GI/Abdominal exam: PRESENT: diminished bowel sounds, tenderness Extremities exam: ABSENT: clubbing, joint swelling Musculoskeletal exam: ABSENT: deformity, dislocation Neurological exam: PRESENT: alert, awake Psychiatric exam: PRESENT: flat affect Skin exam: PRESENT: dry, warm Results Laboratory Results: 09/02/17 05:53 09/04/17 10:35 09/04/17 10:35 Sodium 140.8 Potassium 4.1 Chloride 106 Carbon Dioxide 22 Anion Gap 13 BUN 14 Creatinine 0.63 Est GFR ( Amer) > 60 Est GFR (Non-Af Amer) > 60 Glucose 105 Calcium 6.8 L* Impressions: Chest CT 08/25/17 00:00 IMPRESSION: 1. Masslike consolidation of the right lung base. The solid portion of this consolidation measures 4.2 cm with adjacent consolidated lungs with air bronchograms. This could represent a mass with postobstructive pneumonic process of the right lower lobe. Alternatively, the entire opacity could represent pneumonic or malignant consolidation. 2. There is a 0.9 cm pleural-based pulmonary nodule in the right midlung best seen on image #28, series 4. There are also 3 nodular opacities in the right upper lung measuring approximately 0.8 cm best seen on image numbers 19 and 20. These could represent neoplastic pulmonary nodules, scarring, or postoperative change. PET/CT may be able to provide additional characterization. 3. Possible tiny bilateral pleural effusions. 4. Moderate to large amount of ascites. This exam was performed according to our departmental dose-optimization program, which includes automated exposure control, adjustment of the mA and/or kV according to patient size and/or use of iterative reconstruction technique. Abdomen Ultrasound 08/26/17 08:22 IMPRESSION: No ultrasound-guided paracentesis performed today. Dr. Moraes notified. Abdomen/Pelvis CT 08/30/17 00:00 IMPRESSION: Moderate ascites. No significant change. Assessment & Plan - Diagnosis (1) Abdominal swelling, generalized Is this a current diagnosis for this admission?: Yes Plan: Study suggests spread of malignancy abdomen affecting epigastric area (2) Nausea & vomiting Qualifiers: Vomiting type: cyclical vomiting Vomiting Intractability: intractable Qualified Code(s): G43.A1 - Cyclical vomiting, intractable Is this a current diagnosis for this admission?: Yes Plan: Anti-emetics as needed control is better (3) Pleural effusion Is this a current diagnosis for this admission?: Yes Plan: abdominal CT
== END 2017-09-05 12:45 | disposition home health service (06) | DRG 374 ==
LOC: 5 18:18 → OBSVTOIN 18:18
PROVIDERS: ADMIT Family Medicine; ATTEND Family Medicine
PROC: 0DD68ZX Extraction of Stomach, Via Natural or Artificial Opening Endoscopic, Diagnostic (ICD-10-PCS; principal; 2017-09-01 11:30)
DX: C48.1 Malignant neoplasm of specified parts of peritoneum (principal); J15.9 Unspecified bacterial pneumonia; R18.0 Malignant ascites; J90 Pleural effusion, not elsewhere classified; C34.91 Malignant neoplasm of unspecified part of right bronchus or lung; K29.70 Gastritis, unspecified, without bleeding; K44.9 Diaphragmatic hernia without obstruction or gangrene; R33.9 Retention of urine, unspecified; K59.03 Drug induced constipation; E83.42 Hypomagnesemia; G43.A1 Cyclical vomiting, in migraine, intractable; R63.4 Abnormal weight loss; E86.0 Dehydration; I48.2 Chronic atrial fibrillation; E78.5 Hyperlipidemia, unspecified; I10 Essential (primary) hypertension; J44.9 Chronic obstructive pulmonary disease, unspecified; E11.9 Type 2 diabetes mellitus without complications; C50.919 Malignant neoplasm of unspecified site of unspecified female breast; G47.30 Sleep apnea, unspecified; Z60.2 Problems related to living alone; Z90.12 Acquired absence of left breast and nipple; Z79.4 Long term (current) use of insulin; Z79.51 Long term (current) use of inhaled steroids; Z79.899 Other long term (current) drug therapy; Z68.34 Body mass index [BMI] 34.0-34.9, adult
CPT/HCPCS: 36415; 43239; 71260; 74176; 74177; 76705; 80048; 80053; 80076; 82962; 83735; 85025; 85610; 85730; 87040; 87086; 87493; 88305; 88342; A9270-GY; J0171; J0692; J1200; J1610; J1642; J1650; J1815; J2250; J2270; J2310; J2405; J2550; J3010; J3475; J3480; J3490; J7030; J7620

== ENCOUNTER 2017-09-14 13:48 | Inpatient (IN) | payer BC ==
[2017-09-14] MEDS ORDERED: NORMAL SALINE 1000 ML 1,000 ML IV ONE (15:34)
[2017-09-14] MEDS ORDERED: MAG HYDROX/AL HYDROX/SIMETH SUSP 30 ML UDCUP PO ONE (15:34)
[2017-09-14] MEDS ORDERED: LIDOCAINE 2% VISCOUS SOLN 20 ML UDCUP PO ONE (15:34)
[2017-09-14] MEDS ORDERED: ONDANSETRON HCL INJ/PF 4 MG/2 ML SDV IV ONE (15:34)
[2017-09-14] MEDS ORDERED: MORPHINE SULFATE 10 MG/ML INJ IV ONE (15:36)
--- NOTE | 2017-09-14 15:38 | ER Document Report ---
ED Medical Screen (RME) - General Chief Complaint: Shortness Of Breath Stated Complaint: WEAKNESS Time Seen by Provider: 09/14/17 15:31 Mode of Arrival: Wheelchair Information source: Patient, [facility] Records Notes: This 61-year-old female patient with stage IV lung cancer was admitted on 2016 through 09/05/2017 for swelling and possible partial small bowel obstruction. She reports that the nausea and vomiting never stopped after discharge, and that she began having diarrhea again yesterday. The nausea vomiting got worse yesterday. She reports she is having a lot of epigastric heartburn type discomfort from all the vomiting. She was told to return to the emergency room by her oncologist Dr. Munoz. I have greeted and performed a rapid initial assessment of this patient. A comprehensive ED assessment and evaluation of the patient, analysis of test results and completion of the medical decision making process will be conducted by additional ED providers. TRAVEL OUTSIDE OF THE [place] IN LAST 30 DAYS: No - Related Data Allergies/Adverse Reactions: pravastatin [Pravastatin] Allergy (Severe, Verified 09/14/17 13:54) JOINT PAIN butorphanol tartrate [From Stadol] Allergy (Intermediate, Verified 09/14/17 13: 54) hives and itching latex [Latex] Allergy (Intermediate, Verified 09/14/17 13:54) hives and itching Sulfa (Sulfonamide Antibiotics) Allergy (Intermediate, Verified 09/14/17 13:54) giant hives and bad itching Past Medical History - Social History Chew tobacco use (# tins/day): No Frequency of alcohol use: None Drug Abuse: None - Past Medical History Cardiac Medical History: Reports: Hx Atrial Fibrillation, Hx Hypercholesterolemia, Hx Hypertension Denies: Hx Coronary Artery Disease, Hx Heart Attack Pulmonary Medical History: Reports: Hx Asthma, Hx Bronchitis, Hx COPD, Hx Pneumonia, Hx Respiratory Failure Denies: Hx Tuberculosis Neurological Medical History: Denies: Hx Seizures Endocrine Medical History: Reports: Hx Diabetes Mellitus Type 2 - IDDM Renal/ Medical History: Denies: Hx Peritoneal Dialysis Malignancy Medical History: Reports: Hx Breast Cancer, Hx Lung Cancer GI Medical History: Reports: Hx Gastroesophageal Reflux Disease Musculoskeltal Medical History: Reports Hx Arthritis - LEFT KNEE OSTEOARTHRITIS , Denies Hx Gout Skin Medical History: Denies Hx Psoriasis Psychiatric Medical History: Denies: Hx Depression Traumatic Medical History: Denies: Hx Traumatic Brain Injury Infectious Medical History: Denies: Hx HIV Past Surgical History: Reports: Hx Gynecologic Surgery - hysterectomy 2012, Hx Hysterectomy, Hx Mastectomy - left, Other - Lung biopsy, Pleurx catheter placement and removal, thoracentesis - Immunizations Hx Diphtheria, Pertussis, Tetanus Vaccination: Yes History of Influenza Vaccine for 05/2017 - 10/2017 Season: No Physical Exam - Vital signs Vitals: Temp Pulse Resp BP Pulse Ox 98.2 F 127 H 18 137/95 H 97 09/14/17 13:59 09/14/17 13:59 09/14/17 13:59 09/14/17 13:59 09/14/17 13:59 Course - Vital Signs Vital signs: Temp Pulse Resp BP Pulse Ox 98.2 F 127 H 18 137/95 H 97 09/14/17 13:59 09/14/17 13:59 09/14/17 13:59 09/14/17 13:59 09/14/17 13:59
[2017-09-14 17:26] LABS: ABSOLUTE LYMPHOCYTES (AUTO) 0.6 10^3/uL (0.5-4.7); ABSOLUTE MONOCYTES (AUTO) 1.1 10^3/uL (0.1-1.4); ABSOLUTE NEUT (AUTO) 8.2 10^3/uL (1.7-8.2); BASOPHILS % (AUTO) 0.1 % (0-2); EOSINOPHILS % (AUTO) 0.1 % (0-6); HEMATOCRIT 37.4 % (36.0-47.0); HEMOGLOBIN 12.4 g/dL (12.0-15.5); LYMPHOCYTES % (AUTO) 6.3 % (13-45); MEAN CORPUSCULAR HEMOGLOBIN 29.8 pg (27.0-33.4); MEAN CORPUSCULAR HGB CONC 33.1 g/dL (32.0-36.0); MEAN CORPUSCULAR VOLUME 90 fl (80-97); MONOCYTES % (AUTO) 11.4 % (3-13); PLATELET COUNT 278 10^3/uL (150-450); RED BLOOD COUNT 4.16 10^6/uL (3.72-5.28); RED CELL DISTRIBUTION WIDTH 15.6 % (11.5-14.0); SEGMENTED NEUTROPHILS % (AUTO) 82.1 % (42-78); TOTAL CELLS COUNTED % (AUTO) 100 %
[2017-09-14 17:42] LABS: ALANINE AMINOTRANSFERASE 23 U/L (9-52); ALBUMIN 4.4 g/dL (3.5-5.0); ALKALINE PHOSPHATASE 102 U/L (38-126); ASPARTATE AMINO TRANSFERASE 24 U/L (14-36); BILIRUBIN,DIRECT 0.4 mg/dL (0.0-0.4); BILIRUBIN,TOTAL 0.6 mg/dL (0.2-1.3); BLOOD UREA NITROGEN 23 mg/dL (7-20); CALCIUM 8.6 mg/dL (8.4-10.2); CREATINE KINASE 58 U/L (30-135); GLUCOSE 136 mg/dL (75-110); LIPASE 195.3 U/L (23-300); TOTAL PROTEIN 7.9 g/dL (6.3-8.2)
[2017-09-14 17:49] LABS: CREATINE KINASE MB 1.63 ng/mL (<4.55)
[2017-09-14 18:00] LABS: TROPONIN I 0.044 ng/mL
[2017-09-14 18:07] LABS: ANION GAP 20 (5-19); CHLORIDE 101 mmol/L (98-107); POTASSIUM 3.1 mmol/L (3.6-5.0)
[2017-09-14 18:08] LABS: CARBON DIOXIDE 24 mmol/L (22-30); SODIUM 144.6 mmol/L (137-145)
[2017-09-14 18:13] LABS: PLATELET COMMENT ADEQUATE
--- NOTE | 2017-09-14 19:04 | ER Document Report ---
ED General - General Chief Complaint: Shortness Of Breath Stated Complaint: WEAKNESS Time Seen by Provider: 09/14/17 15:31 Mode of Arrival: Wheelchair Notes: 61-year-old female patient. Stage IV lung cancer with metastasis to the abdomen. Has been having nausea, vomiting and diarrhea. Worsening symptoms. Passed out yesterday. Spent 2 hours on the ground. Finally was able to get up. She was brought in for eval tion TRAVEL OUTSIDE OF THE [place] IN LAST 30 DAYS: No - HPI Onset: Yesterday Onset/Duration: Gradual Quality of pain: Achy Severity: Moderate Pain Level: 2 Associated symptoms: Diarrhea, Nausea, Vomiting, Weakness Exacerbated by: Denies - Related Data Allergies/Adverse Reactions: pravastatin [Pravastatin] Allergy (Severe, Verified 09/14/17 13:54) JOINT PAIN butorphanol tartrate [From Stadol] Allergy (Intermediate, Verified 09/14/17 13: 54) hives and itching latex [Latex] Allergy (Intermediate, Verified 09/14/17 13:54) hives and itching Sulfa (Sulfonamide Antibiotics) Allergy (Intermediate, Verified 09/14/17 13:54) giant hives and bad itching Past Medical History - General Information source: Patient, [facility] Records - Social History Smoking Status: Former Smoker Chew tobacco use (# tins/day): No Frequency of alcohol use: None Drug Abuse: None Lives with: Alone Family History: Reviewed & Not Pertinent, COPD, Hypertension, Other - no ca in fam known Patient has suicidal ideation: No Patient has homicidal ideation: No - Past Medical History Cardiac Medical History: Reports: Hx Atrial Fibrillation, Hx Hypercholesterolemia, Hx Hypertension Denies: Hx Coronary Artery Disease, Hx Heart Attack Pulmonary Medical History: Reports: Hx Asthma, Hx Bronchitis, Hx COPD, Hx Pneumonia, Hx Respiratory Failure Denies: Hx Tuberculosis Neurological Medical History: Denies: Hx Seizures Endocrine Medical History: Reports: Hx Diabetes Mellitus Type 2 - IDDM Renal/ Medical History: Denies: Hx Peritoneal Dialysis Malignancy Medical History: Reports: Hx Breast Cancer, Hx Lung Cancer GI Medical History: Reports: Hx Gastroesophageal Reflux Disease Musculoskeltal Medical History: Reports Hx Arthritis - LEFT KNEE OSTEOARTHRITIS , Denies Hx Gout Skin Medical History: Denies Hx Psoriasis Psychiatric Medical History: Denies: Hx Depression Traumatic Medical History: Denies: Hx Traumatic Brain Injury Infectious Medical History: Denies: Hx HIV Past Surgical History: Reports: Hx Gynecologic Surgery - hysterectomy 2013, Hx Hysterectomy, Hx Mastectomy - left, Other - Lung biopsy, Pleurx catheter placement and removal, thoracentesis - Immunizations Hx Diphtheria, Pertussis, Tetanus Vaccination: Yes Hx Pneumococcal Vaccination: 08/29/12 Review of Systems - Review of Systems Constitutional: Malaise, Weakness. denies: Chills, Fever EENT: No symptoms reported Cardiovascular: Palpitations Respiratory: Cough Gastrointestinal: Abdominal pain, Diarrhea, Nausea, Vomiting Genitourinary: No symptoms reported Female Genitourinary: No symptoms reported Musculoskeletal: No symptoms reported Skin: No symptoms reported Hematologic/Lymphatic: No symptoms reported Neurological/Psychological: No symptoms reported Physical Exam - Vital signs Vitals: Temp Pulse Resp BP Pulse Ox 98.2 F 127 H 18 137/95 H 97 09/14/17 13:59 09/14/17 13:59 09/14/17 13:59 09/14/17 13:59 09/14/17 13:59 Interpretation: Normal, Tachycardic - General General appearance: Appears well, Alert - HEENT Head: Normocephalic, Atraumatic Eyes: Normal Pupils: PERRL Mucous membranes: Dry - Respiratory Respiratory status: No respiratory distress Chest status: Nontender Breath sounds: Normal Chest palpation: Normal - Cardiovascular Rhythm: Tachycardia Heart sounds: Normal auscultation Murmur: No - Abdominal Inspection: Normal Distension: No distension Bowel sounds: Normal Tenderness: Tender, Other - Mild diffuse tenderness. No guarding. No rebound. Decreased bowel sounds. Organomegaly: No organomegaly - Back Back: Normal, Nontender - Extremities General upper extremity: Normal inspection, Nontender, Normal color, Normal ROM , Normal temperature General lower extremity: Normal inspection, Nontender, Normal color, Normal ROM , Normal temperature, Normal weight bearing. No: Alonzo's sign - Neurological Neuro grossly intact: Yes Cognition: Normal Orientation: AAOx4 Scott Coma Scale Eye Opening: Spontaneous Patterson Coma Scale Verbal: Oriented Scott Coma Scale Motor: Obeys Commands Patterson Coma Scale Total: 15 Speech: Normal Motor strength normal: LUE, RUE, LLE, RLE Sensory: Normal - Psychological Associated symptoms: Normal affect, Normal mood - Skin Skin Temperature: Warm Skin Moisture: Dry Skin Color: Normal Course - Re-evaluation Re-evalutation: 09/14/17 19:15 This is a 61-year-old pleasant female patient with history of metastatic lung cancer with abdominal pain, nausea vomiting. We will get basic labs, x-ray of the abdomen, fluids nausea control and admit patient is a patient of Dr. Sandoval' s. Dr. Alvarado is on-call at this time. 09/14/17 19:18 - Vital Signs Vital signs: Temp Pulse Resp BP Pulse Ox 98.2 F 127 H 17 144/103 H 100 09/14/17 13:59 09/14/17 13:59 09/14/17 19:00 09/14/17 18:27 09/14/17 19:00 - Laboratory Result Diagrams: 09/14/17 16:44 09/14/17 16:44 Laboratory results interpreted by me: 09/14/17 09/14/17 16:44 16:44 RDW 15.6 H Seg Neutrophils % 82.1 H Lymphocytes % 6.3 L Potassium 3.1 L Anion Gap 20 H BUN 23 H Glucose 136 H Discharge - Discharge Clinical Impression: Dehydration Metastatic primary lung cancer Qualifiers: Laterality: unspecified laterality Qualified Code(s): C34.90 - Malignant neoplasm of unspecified part of unspecified bronchus or lung Disposition: ADMITTED INPATIENT Admitting Provider: Christiano Unit Admitted: Medical Floor Referrals: TYLER SANDOVAL MD [Primary Care Provider] - Follow up as needed
[2017-09-14] MEDS ORDERED: POTASSI CL 20 MEQ/NS 1L 1,000 ML IV ONE (19:19)
[2017-09-14] MEDS ORDERED: MORPHINE SULFATE 10 MG/ML INJ ONE (19:38)
[2017-09-14] MEDS ORDERED: ONDANSETRON HCL INJ/PF 4 MG/2 ML SDV ONE (19:39)
--- NOTE | 2017-09-14 19:46 | RADIOLOGY REPORT (SQ) ---
EXAM DESCRIPTION: ABDOMEN 2 VIEWS COMPLETED DATE/TIME: 09/14/2017 7:36 pm REASON FOR STUDY: diarrhea, not passing gas, hx of mets COMPARISON: CT from 08/30/2017. NUMBER OF VIEWS: Two views. TECHNIQUE: Supine and erect/decubitus radiographic images of the abdomen acquired. LIMITATIONS: None. FINDINGS: FREE AIR: None. No abnormal gas collections. LUNG BASES: Chronic opacities, right greater than left. Air bronchograms in the right base with asso ciated small pleural effusion. BOWEL GAS PATTERN: Nonspecific. No gas distended loops or air-fluid levels. Mild gas in stomach and colon. CALCIFICATIONS: No suspicious calcifications. SOFT TISSUES: No gross mass or suggestion of organomegaly. HARDWARE: None in the abdomen. BONES: No acute fracture. No worrisome bone lesions. OTHER: No other significant finding. IMPRESSION: Unchanged basilar pulmonary findings. No acute abdominal process identified on radiogra phs. Nonspecific but relatively nonobstructive bowel gas pattern. TECHNICAL DOCUMENTATION: JOB ID: [id number] [employer]- All Rights Reserved
[2017-09-14 21:08] LABS: APPEARANCE,URINE SLIGHTLY-CLOUDY; BILIRUBIN,URINE NEGATIVE (NEGATIVE); COLOR,URINE YELLOW; GLUCOSE, URINE 50 mg/dL (NEGATIVE); KETONES,URINE 80 mg/dL (NEGATIVE); LEUKOCYTE ESTERASE,URINE NEGATIVE (NEGATIVE); NITRITE,URINE NEGATIVE (NEGATIVE); PROTEIN,URINE 100 mg/dL (NEGATIVE); URINE SPECIFIC GRAVITY 1.026
[2017-09-14] MEDS: POTASSI CL 40 MEQ/NS 1L 1,000 ML IV PRN (22:26)
[2017-09-15] MEDS ORDERED: INFLUENZA ADLT QUAD (36MOS+) 2017-18 VAC 0.5 ML SYR IM PRN (02:17)
[2017-09-15] MEDS ORDERED: ONDANSETRON 4 MG TAB.RAPDIS PO PRN (02:53)
[2017-09-15] MEDS: CLONIDINE HCL 0.1 MG TABLET PO SCH ×3 (06:20→22:07)
[2017-09-15] MEDS: LANSOPRAZOLE 30 MG TAB.RAP.DR PO SCH (06:21)
[2017-09-15] MEDS ORDERED: PROMETHAZINE HCL INJ 25 MG/1 ML VIAL IV PRN (08:46)
--- NOTE | 2017-09-15 08:53 | PDOC CONSULTATION ---
Consultation Consult Date: 09/15/17 Attending physician:: MIA HAIDER Consult reason:: N/V, diarrhea, dehydration, Stage IV lung ca History of Present Illness Admission Date/PCP: 09/14/17 20:09 TYLER SANDOVAL MD Patient complains of: severe diarrhea, found down, N/V History of Present Illness: SARA AMAYA is a 61 year old female w/ know hx of stage IV lung cancer, recently she was admitted about 2 weeks ago with nausea and vomiting, at that time she was having continuous nausea and vomiting with both solids and liquids , she was admitted under Dr. Sandoval service, we did a CT of the chest abdomen pelvis with IV and oral contrast, CT of the chest did show evidence of progression of disease and CT of the abdomen pelvis did not show regan obstruction, but there was free fluid in the pelvis, that was not amenable to paracentesis, and ultimately we discussed her case with radiology who felt that there was probably carcinomatosis but no regan obstruction. Ultimately she was able to tolerate some p.o. and she was discharged home, she saw us earlier this week and she was tolerating liquids but still did not have much of an appetite. But she did not have a bowel movement for about 4 days prior to seeing us, we recommended a bowel regimen, but interestingly since she got home she really did need to use it she began having profuse diarrhea. She had profuse diarrhea for about 2 days prior to admission and she apparently was found down at home lying in her own stool, and she was down for about 3 hours before someone found her. Past Medical History Cardiac Medical History: Reports: Atrial Fibrillation, Hyperlipidema, Hypertension Denies: Coronary Artery Disease, Myocardial Infarction Pulmonary Medical History: Reports: Asthma, Bronchitis, Chronic Obstructive Pulmonary Disease (COPD), Pneumonia, Respiratory Failure Denies: Tuberculosis Neurological Medical History: Denies: Seizures Endocrine Medical History: Reports: Diabetes Mellitus Type 2 - IDDM Malignancy Medical History: Reports: Breast Cancer, Lung Cancer GI Medical History: Reports: Gastroesophageal Reflux Disease Musculoskeltal Medical History: Reports: Arthritis - LEFT KNEE OSTEOARTHRITIS Denies: Gout Skin Medical History: Denies: Psoriasis Psychiatric Medical History: Denies: Depression Traumatic Medical History: Denies: Traumatic Brain Injury Hematology: Denies: Anemia, Sickle Cell Disease Infectious Medical History: Denies: HIV Past Surgical History Past Surgical History: Reports: Hysterectomy, Mastectomy - left, Other - Lung biopsy, Pleurx catheter placement and removal, thoracentesis Social History Information Source: Patient Lives with: Alone Smoking Status: Former Smoker Cigarettes Packs Per Day: 1 Number of Years Smokin Last Time Smoked: 08/29/1993 Frequency of Alcohol Use: None Hx Recreational Drug Use: No Drugs: None Hx Prescription Drug Abuse: No - Advance Directive Resuscitation Status: Full Code Family History Family History: Reviewed & Not Pertinent, COPD, Hypertension, Other - no ca in fam known Parental Family History Reviewed: Yes Children Family History Reviewed: Yes Sibling(s) Family History Reviewed.: Yes Medication/Allergy Home Medications: Albuterol Sulfate [Proair Hfa Inhalation Aerosol 8.5 gm Mdi] 2 puff IH Q4HP PRN 09/14/17 Amlodipine Besylate [Norvasc 2.5 mg Tablet] 2.5 mg PO DAILY 09/14/17 Benzonatate [Tessalon Perle 100 mg Capsule] 200 mg PO QID 09/14/17 Brimonidine Tartrate [Alphagan P] 1 drop OU BID 09/14/17 Calcium Carbonate [Os-Andi 500 mg Tablet (Oyster-Shell)] 500 mg PO BID 09/14/17 Clonidine HCl [Catapres 0.1 mg Tablet] 0.1 mg PO Q8 09/14/17 Dronabinol [Marinol] 5 mg PO BID 09/14/17 Esomeprazole Mag Trihydrate [Nexium] 40 mg PO DAILY 09/14/17 Fluticasone/Salmeterol [Advair 250-50 Diskus 28 dose] 1 inh IH Q12 09/14/17 Guaifenesin [Mucinex Sr 600 mg Tablet.sa] 600 mg PO Q12 09/14/17 Latanoprost [Xalatan 0.005% Oph Soln 2.5 ml] 1 drop OU QHS 09/14/17 Montelukast Sodium [Singulair 10 mg Tablet] 10 mg PO QHS 09/14/17 Ranolazine [Ranexa 500 mg Tab.sr] 500 mg PO Q12 09/14/17 Tamoxifen Citrate 20 mg PO DAILY 09/14/17 Allergies/Adverse Reactions: pravastatin [Pravastatin] Allergy (Severe, Verified 09/14/17 13:54) JOINT PAIN butorphanol tartrate [From Stadol] Allergy (Intermediate, Verified 09/14/17 13: 54) hives and itching latex [Latex] Allergy (Intermediate, Verified 09/14/17 13:54) hives and itching Sulfa (Sulfonamide Antibiotics) Allergy (Intermediate, Verified 09/14/17 13:54) giant hives and bad itching Review of Systems Constitutional: PRESENT: anorexia, fatigue, weakness, weight loss Cardiovascular: PRESENT: dyspnea on exertion Gastrointestinal: PRESENT: abdominal pain, bloating, diarrhea, nausea, vomiting Genitourinary: ABSENT: dysuria, hematuria Neurological: PRESENT: weakness Psychiatric: ABSENT: anxiety, depression, homidical ideation, suicidal ideation Endocrine: PRESENT: as per HPI Physical Exam Vital Signs: Temp Pulse Resp BP Pulse Ox 98.0 F 103 H 16 118/70 100 09/15/17 07:57 09/15/17 07:57 09/15/17 07:57 09/15/17 07:57 09/15/17 07:57 Intake & Output 09/14/17 09/15/17 09/16/17 06:59 06:59 06:59 Intake Total 914 Balance 914 General appearance: PRESENT: no acute distress Head exam: PRESENT: atraumatic Mouth exam: PRESENT: dry mucosa Teeth exam: PRESENT: poor dentation Neck exam: ABSENT: carotid bruit, JVD, lymphadenopathy, thyromegaly Respiratory exam: PRESENT: clear to auscultation darinel. ABSENT: rales, rhonchi, wheezes Cardiovascular exam: PRESENT: RRR. ABSENT: diastolic murmur, rubs, systolic murmur GI/Abdominal exam: PRESENT: diminished bowel sounds, distended Rectal exam: PRESENT: deferred Extremities exam: PRESENT: full ROM. ABSENT: calf tenderness, clubbing, pedal edema Neurological exam: PRESENT: alert, awake, oriented to person, oriented to place , oriented to time, oriented to situation, CN II-XII grossly intact. ABSENT: motor sensory deficit Skin exam: PRESENT: dry Results Laboratory Results: 09/14/17 20:16 Urine Color YELLOW Urine Appearance SLIGHTLY-CLOUDY Urine pH 6.0 Ur Specific [place] 1.026 Urine Protein 100 H Urine Glucose (UA) 50 H Urine Ketones 80 H Urine Blood NEGATIVE Urine Nitrite NEGATIVE Ur Leukocyte Esterase NEGATIVE Urine WBC (Auto) 2 Urine RBC (Auto) 1 Impressions: Abdomen X-Ray 09/14/17 19:03 IMPRESSION: Unchanged basilar pulmonary findings. No acute abdominal process identified on radiographs. Nonspecific but relatively nonobstructive bowel gas pattern. Status: Image reviewed by me Assessment & Plan - Diagnosis (1) Dehydration Is this a current diagnosis for this admission?: Yes Plan: Secondary to severe diarrhea and nausea, she is being hydrated currently. She has a regular diet, I would like to see how she does with that, if she does have regan nausea and vomiting with that diet, she will need to be considered for CT of the abdomen pelvis with oral and IV contrast to see if she is now getting obstructed. (2) Gastroenteritis Is this a current diagnosis for this admission?: Yes Plan: She probably does have some element of gastroenteritis, with the diarrhea, unsure if it is truly infectious or related to the carcinomatosis, but at this point continue hydration as above and regular diet to see how she does. (3) Malignant neoplasm of right upper lobe of lung Is this a current diagnosis for this admission?: Yes Plan: We are planning on additional chemotherapy as an outpatient, we still plan on that as of now. (4) Nausea & vomiting Qualifiers: Vomiting type: cyclical vomiting Vomiting Intractability: intractable Qualified Code(s): G43.A1 - Cyclical vomiting, intractable Is this a current diagnosis for this admission?: Yes Plan: Previous intractable nausea and vomiting, we will see how she does with food this 24 hours, Zofran and Phenergan are ordered, IV hydration is continued. - Time Time Spent: Greater than 70 Minutes - Inpatient Certification Based on my medical assessment, after consideration of the patient's comorbidities, presenting symptoms, or acuity I expect that the services needed warrant INPATIENT care.: Yes I certify that my determination is in accordance with my understanding of Medicare's requirements for reasonable and necessary INPATIENT services [42 CFR 412.3e].: Yes Medical Necessity: Need for IV Antibiotics, Risk of Complication if Not Cared For in Hospital
[2017-09-15] MEDS: GUAIFENESIN 600 MG TABLET.SA PO SCH ×2 (09:32→22:07)
[2017-09-15] MEDS: DRONABINOL 2.5 MG CAPSULE PO SCH ×2 (09:33→18:51)
[2017-09-15] MEDS: POTASSI CL 40 MEQ/NS 1L 1,000 ML IV PRN ×2 (09:33→20:20)
[2017-09-15] MEDS: CALCIUM CARBONATE 500 MG TABLET PO SCH ×2 (09:34→18:51)
[2017-09-15] MEDS: BENZONATATE 100 MG CAPSULE PO SCH ×4 (09:34→22:07)
[2017-09-15] MEDS: RANOLAZINE 500 MG TAB.SR.12H PO SCH ×2 (09:34→22:07)
[2017-09-15] MEDS: TAMOXIFEN CITRATE 10 MG TABLET PO SCH (09:41)
[2017-09-15] MEDS: BRIMONIDINE TARTRATE 0.2% OPH SOLN 5 ML OD SCH ×2 (09:43→18:55)
[2017-09-15] MEDS: ALBUTEROL SULFATE HFA (90 MCG/PUFF) 200 PUFF/8.5 GM MDI IH PRN (09:43)
[2017-09-15] MEDS: FLUTICASONE/SALMETEROL DISKUS 250-50 MCG/DOSE IH SCH ×2 (09:43→22:07)
[2017-09-15] MEDS: AMLODIPINE BESYLATE 2.5 MG TABLET PO SCH (09:44)
[2017-09-15] MEDS ORDERED: ONDANSETRON HCL 8 MG TABLET PO PRN (14:39)
[2017-09-15] MEDS: MORPHINE SULFATE 10 MG/ML INJ IV PRN (18:51)
--- NOTE | 2017-09-15 20:06 | PDOC H&P ---
History of Present Illness Admission Date/PCP: 09/14/17 20:09 TYLER SANDOVAL MD History of Present Illness: Patient is a 61-year-old unfortunate female with stage IV right lung cancer with metastases to the abdomen, she came to the emergency room for evaluation of profuse diarrhea ,abdominal pain and discomfort. She was recently discharged from this hospital on 09/05/2017 when she was admitted for similar presentation she also had pneumonia at the time. She has lung cancer with metastases she was treated with chemotherapy, immunotherapy but patient does not seem to be responding to treatment. The history was that she had such profuse diarrhea, she was in our her own feces and could not get out of the floor. In the emergency room she was found to have hypokalemia from the blood that was done in the ER. When I saw patient on the floor she stated that she has diarrhea since Thanksgiving last year this is chronic diarrhea most likely related to malignancy. Past Medical History Cardiac Medical History: Reports: Atrial Fibrillation, Hyperlipidema, Hypertension Pulmonary Medical History: Reports: Asthma, Bronchitis, Chronic Obstructive Pulmonary Disease (COPD), Pneumonia, Respiratory Failure Neurological Medical History: Denies: Seizures Endocrine Medical History: Reports: Diabetes Mellitus Type 2 - IDDM Malignancy Medical History: Reports: Breast Cancer, Lung Cancer GI Medical History: Reports: Gastroesophageal Reflux Disease Musculoskeltal Medical History: Reports: Arthritis - LEFT KNEE OSTEOARTHRITIS Past Surgical History Past Surgical History: Reports: Hysterectomy, Mastectomy - left, Other - Lung biopsy, Pleurx catheter placement and removal, thoracentesis Social History Lives with: Alone Smoking Status: Former Smoker Cigarettes Packs Per Day: 1 Number of Years Smokin Last Time Smoked: 08/29/1993 Frequency of Alcohol Use: None Hx Recreational Drug Use: No Drugs: None Hx Prescription Drug Abuse: No - Advance Directive Resuscitation Status: Full Code Family History Family History: Reviewed & Not Pertinent, COPD, Hypertension, Other - no ca in fam known Parental Family History Reviewed: Yes Children Family History Reviewed: Yes Sibling(s) Family History Reviewed.: Yes Medication/Allergy Home Medications: Albuterol Sulfate [Proair Hfa Inhalation Aerosol 8.5 gm Mdi] 2 puff IH Q4HP PRN 09/14/17 Amlodipine Besylate [Norvasc 2.5 mg Tablet] 2.5 mg PO DAILY 09/14/17 Benzonatate [Tessalon Perle 100 mg Capsule] 200 mg PO QID 09/14/17 Brimonidine Tartrate [Alphagan P] 1 drop OU BID 09/14/17 Calcium Carbonate [Os-Andi 500 mg Tablet (Oyster-Shell)] 500 mg PO BID 09/14/17 Clonidine HCl [Catapres 0.1 mg Tablet] 0.1 mg PO Q8 09/14/17 Dronabinol [Marinol] 5 mg PO BID 09/14/17 Esomeprazole Mag Trihydrate [Nexium] 40 mg PO DAILY 09/14/17 Fluticasone/Salmeterol [Advair 250-50 Diskus 28 dose] 1 inh IH Q12 09/14/17 Guaifenesin [Mucinex Sr 600 mg Tablet.sa] 600 mg PO Q12 09/14/17 Latanoprost [Xalatan 0.005% Oph Soln 2.5 ml] 1 drop OU QHS 09/14/17 Montelukast Sodium [Singulair 10 mg Tablet] 10 mg PO QHS 09/14/17 Ranolazine [Ranexa 500 mg Tab.sr] 500 mg PO Q12 09/14/17 Tamoxifen Citrate 20 mg PO DAILY 09/14/17 Allergies/Adverse Reactions: pravastatin [Pravastatin] Allergy (Severe, Verified 09/14/17 13:54) JOINT PAIN butorphanol tartrate [From Stadol] Allergy (Intermediate, Verified 09/14/17 13: 54) hives and itching latex [Latex] Allergy (Intermediate, Verified 09/14/17 13:54) hives and itching Sulfa (Sulfonamide Antibiotics) Allergy (Intermediate, Verified 09/14/17 13:54) giant hives and bad itching Review of Systems Constitutional: PRESENT: fatigue Eyes: ABSENT: visual disturbances Ears: ABSENT: hearing changes Cardiovascular: ABSENT: chest pain, dyspnea on exertion, edema, orthropnea, palpitations Respiratory: ABSENT: cough, hemoptysis Gastrointestinal: PRESENT: abdominal pain, diarrhea, vomiting Genitourinary: ABSENT: dysuria, hematuria Musculoskeletal: ABSENT: joint swelling Integumentary: ABSENT: rash, wounds Neurological: ABSENT: abnormal gait, abnormal speech, confusion, dizziness, focal weakness, syncope Psychiatric: ABSENT: anxiety, depression, homidical ideation, suicidal ideation Endocrine: ABSENT: cold intolerance, heat intolerance, menstrual abnormalities, polydipsia, polyuria Hematologic/Lymphatic: ABSENT: easy bleeding, easy bruising, lymphadenopathy Physical Exam Vital Signs: Temp Pulse Resp BP Pulse Ox 97.9 F 109 H 18 112/69 99 09/15/17 16:16 09/15/17 16:16 09/15/17 16:16 09/15/17 16:16 09/15/17 16:16 Intake & Output 09/14/17 09/15/17 09/16/17 06:59 06:59 06:59 Intake Total 914 2490 Balance 914 2490 General appearance: PRESENT: no acute distress Head exam: PRESENT: atraumatic, normocephalic Ear exam: PRESENT: normal external ear exam Mouth exam: PRESENT: dry mucosa Neck exam: PRESENT: full ROM Respiratory exam: PRESENT: clear to auscultation darinel Cardiovascular exam: PRESENT: RRR, +S1, +S2 Vascular exam: PRESENT: normal capillary refill GI/Abdominal exam: PRESENT: distended, tenderness Rectal exam: PRESENT: deferred Neurological exam: PRESENT: alert Skin exam: PRESENT: dry Results Laboratory Results: 09/14/17 20:16 Urine Color YELLOW Urine Appearance SLIGHTLY-CLOUDY Urine pH 6.0 Ur Specific [place] 1.026 Urine Protein 100 H Urine Glucose (UA) 50 H Urine Ketones 80 H Urine Blood NEGATIVE Urine Nitrite NEGATIVE Ur Leukocyte Esterase NEGATIVE Urine WBC (Auto) 2 Urine RBC (Auto) 1 Impressions: Abdomen X-Ray 09/14/17 19:03 IMPRESSION: Unchanged basilar pulmonary findings. No acute abdominal process identified on radiographs. Nonspecific but relatively nonobstructive bowel gas pattern. Assessment & Plan - Diagnosis (1) Diarrhea Qualifiers: Diarrhea type: unspecified type Qualified Code(s): R19.7 - Diarrhea, unspecified Is this a current diagnosis for this admission?: Yes Plan: She has profuse diarrhea associated with metastatic disease, she has hypokalemia this be corrected she treated with IV fluid (2) Hypokalemia Is this a current diagnosis for this admission?: Yes (3) Malignant neoplasm of right upper lobe of lung Is this a current diagnosis for this admission?: Yes
[2017-09-15 21:49] LABS: ALANINE AMINOTRANSFERASE 21 U/L (9-52); ALBUMIN 3.7 g/dL (3.5-5.0); ALKALINE PHOSPHATASE 84 U/L (38-126); ANION GAP 12 (5-19); ASPARTATE AMINO TRANSFERASE 24 U/L (14-36); BILIRUBIN,DIRECT 0.2 mg/dL (0.0-0.4); BILIRUBIN,TOTAL 0.3 mg/dL (0.2-1.3); BLOOD UREA NITROGEN 21 mg/dL (7-20); CALCIUM 7.7 mg/dL (8.4-10.2); CARBON DIOXIDE 25 mmol/L (22-30); CHLORIDE 106 mmol/L (98-107); GLUCOSE 134 mg/dL (75-110); POTASSIUM 3.8 mmol/L (3.6-5.0); SODIUM 143.4 mmol/L (137-145); TOTAL PROTEIN 6.9 g/dL (6.3-8.2)
[2017-09-15] MEDS: LATANOPROST 0.005% OPH SOLN 2.5 ML OU SCH (22:07)
[2017-09-15] MEDS: MONTELUKAST SODIUM 10 MG TABLET PO SCH (22:07)
[2017-09-16 05:25] LABS: ALANINE AMINOTRANSFERASE 26 U/L (9-52); ALBUMIN 3.4 g/dL (3.5-5.0); ALKALINE PHOSPHATASE 68 U/L (38-126); ANION GAP 10 (5-19); ASPARTATE AMINO TRANSFERASE 30 U/L (14-36); BILIRUBIN,DIRECT 0.5 mg/dL (0.0-0.4); BILIRUBIN,TOTAL 0.7 mg/dL (0.2-1.3); BLOOD UREA NITROGEN 20 mg/dL (7-20); CALCIUM 7.8 mg/dL (8.4-10.2); CARBON DIOXIDE 24 mmol/L (22-30); CHLORIDE 109 mmol/L (98-107); GLUCOSE 132 mg/dL (75-110); POTASSIUM 4.3 mmol/L (3.6-5.0); TOTAL PROTEIN 6.6 g/dL (6.3-8.2)
[2017-09-16] MEDS: CLONIDINE HCL 0.1 MG TABLET PO SCH ×3 (06:46→22:28)
[2017-09-16] MEDS: LANSOPRAZOLE 30 MG TAB.RAP.DR PO SCH (06:46)
--- NOTE | 2017-09-16 08:52 | PDOC PROGRESS REPORT ---
Subjective Progress Note for:: 09/16/17 Subjective:: Patient did actually tolerate some p.o. yesterday, she is feeling a little bit better, I believe she will require another 24-48 hours of IV hydration to see how she does. Reason For Visit: DEHYDRATION, NEOPLASM OF LUNG Physical Exam Vital Signs: Temp Pulse Resp BP Pulse Ox 97.9 F 109 H 18 112/69 99 09/15/17 16:16 09/15/17 16:16 09/15/17 16:16 09/15/17 16:16 09/15/17 16:16 Intake & Output 09/15/17 09/16/17 09/17/17 06:59 06:59 06:59 Intake Total 914 3930 Balance 914 3930 General appearance: PRESENT: no acute distress, well-developed, well-nourished Head exam: PRESENT: atraumatic, normocephalic Eye exam: PRESENT: conjunctiva pink, EOMI, PERRLA. ABSENT: scleral icterus Ear exam: PRESENT: normal external ear exam Mouth exam: PRESENT: moist, tongue midline Neck exam: ABSENT: carotid bruit, JVD, lymphadenopathy, thyromegaly Respiratory exam: PRESENT: clear to auscultation darinel. ABSENT: rales, rhonchi, wheezes Cardiovascular exam: PRESENT: RRR. ABSENT: diastolic murmur, rubs, systolic murmur Pulses: PRESENT: normal dorsalis pedis pul Vascular exam: PRESENT: normal capillary refill GI/Abdominal exam: PRESENT: normal bowel sounds, soft. ABSENT: distended, guarding, mass, organolmegaly, rebound, tenderness Rectal exam: PRESENT: deferred Extremities exam: PRESENT: full ROM. ABSENT: calf tenderness, clubbing, pedal edema Neurological exam: PRESENT: alert, awake, oriented to person, oriented to place , oriented to time, oriented to situation, CN II-XII grossly intact. ABSENT: motor sensory deficit Psychiatric exam: PRESENT: appropriate affect, normal mood. ABSENT: homicidal ideation, suicidal ideation Skin exam: PRESENT: dry, intact, warm. ABSENT: cyanosis, rash Results Laboratory Results: 09/16/17 04:40 09/15/17 09/16/17 21:15 04:40 Sodium 143.4 143.0 Potassium 3.8 4.3 Chloride 106 109 H Carbon Dioxide 25 24 Anion Gap 12 10 BUN 21 H 20 Creatinine 0.75 0.71 Est GFR ( Amer) > 60 > 60 Est GFR (Non-Af Amer) > 60 > 60 Glucose 134 H 132 H Calcium 7.7 L 7.8 L Total Bilirubin 0.3 0.7 AST 24 30 ALT 21 26 Alkaline Phosphatase 84 68 Total Protein 6.9 6.6 Albumin 3.7 3.4 L Impressions: Abdomen X-Ray 09/14/17 19:03 IMPRESSION: Unchanged basilar pulmonary findings. No acute abdominal process identified on radiographs. Nonspecific but relatively nonobstructive bowel gas pattern. Assessment & Plan - Diagnosis (1) Dehydration Is this a current diagnosis for this admission?: Yes Plan: Seems to be improving, continue with IV hydration (2) Gastroenteritis Is this a current diagnosis for this admission?: Yes Plan: Diarrhea has improved, seems to be lightening up, probably disease related. (3) Malignant neoplasm of right upper lobe of lung Is this a current diagnosis for this admission?: Yes Plan: Plan for outpatient therapy (4) Nausea & vomiting Qualifiers: Vomiting type: cyclical vomiting Vomiting Intractability: intractable Qualified Code(s): G43.A1 - Cyclical vomiting, intractable Is this a current diagnosis for this admission?: Yes Plan: Continue current antiemetics - Time Time Spent with patient: 35 or more minutes - Inpatient Certification Based on my medical assessment, after consideration of the patient's comorbidities, presenting symptoms, or acuity I expect that the services needed warrant INPATIENT care.: Yes I certify that my determination is in accordance with my understanding of Medicare's requirements for reasonable and necessary INPATIENT services [42 CFR 412.3e].: Yes Medical Necessity: Need For IV Fluids, Risk of Complication if Not Cared For in Hospital
[2017-09-16] MEDS: DRONABINOL 2.5 MG CAPSULE PO SCH ×2 (10:53→17:54)
[2017-09-16] MEDS: GUAIFENESIN 600 MG TABLET.SA PO SCH ×2 (10:53→22:27)
[2017-09-16] MEDS: AMLODIPINE BESYLATE 2.5 MG TABLET PO SCH (10:53)
[2017-09-16] MEDS: CALCIUM CARBONATE 500 MG TABLET PO SCH ×2 (10:53→17:54)
[2017-09-16] MEDS: BENZONATATE 100 MG CAPSULE PO SCH ×4 (10:53→22:28)
[2017-09-16] MEDS: RANOLAZINE 500 MG TAB.SR.12H PO SCH ×2 (10:54→22:27)
[2017-09-16] MEDS: FLUTICASONE/SALMETEROL DISKUS 250-50 MCG/DOSE IH SCH ×2 (10:54→22:29)
[2017-09-16] MEDS: BRIMONIDINE TARTRATE 0.2% OPH SOLN 5 ML OD SCH ×2 (10:54→17:54)
[2017-09-16] MEDS: TAMOXIFEN CITRATE 10 MG TABLET PO SCH (10:54)
[2017-09-16] MEDS: POTASSI CL 40 MEQ/NS 1L 1,000 ML IV PRN (14:02)
[2017-09-16] MEDS: MORPHINE SULFATE 10 MG/ML INJ IV PRN ×2 (14:19→22:26)
[2017-09-16] MEDS: MONTELUKAST SODIUM 10 MG TABLET PO SCH (22:28)
[2017-09-16] MEDS: LATANOPROST 0.005% OPH SOLN 2.5 ML OU SCH (22:29)
[2017-09-17] MEDS: POTASSI CL 40 MEQ/NS 1L 1,000 ML IV PRN ×2 (00:16→11:49)
[2017-09-17] MEDS: CLONIDINE HCL 0.1 MG TABLET PO SCH ×3 (05:57→23:49)
[2017-09-17] MEDS: LANSOPRAZOLE 30 MG TAB.RAP.DR PO SCH (05:57)
[2017-09-17] MEDS ORDERED: SIMETHICONE 80 MG TAB.CHEW PO PRN (09:24)
--- NOTE | 2017-09-17 09:34 | PDOC PROGRESS REPORT ---
Subjective Progress Note for:: 09/17/17 Subjective:: Today, patient states no change. She is still nauseated. She vomited once yesterday. She states that the phenergan does not help. However the GI cocktail helped. It decreased the amount of gas and belching. She is very sleepy. Bowels moved yesterday. On ROS, she denies chest pain or dyspnea. She cannot remember if she ate last night. Reason For Visit: DEHYDRATION, LUNG NEOPLASM Physical Exam Vital Signs: Temp Pulse Resp BP Pulse Ox 97.3 F 99 16 146/84 H 96 09/17/17 07:21 09/17/17 07:21 09/17/17 07:21 09/17/17 07:21 09/17/17 07:21 Intake & Output 09/16/17 09/17/17 09/18/17 06:59 06:59 06:59 Intake Total 2550 Output Total 500 Balance 205 Weight 81.3 kg General appearance: PRESENT: no acute distress Head exam: PRESENT: atraumatic Respiratory exam: PRESENT: unlabored Cardiovascular exam: PRESENT: RRR GI/Abdominal exam: PRESENT: distended, firm, hyperactive bowel sounds Neurological exam: PRESENT: alert Psychiatric exam: PRESENT: appropriate affect Skin exam: PRESENT: normal color Results Impressions: Abdomen X-Ray 09/14/17 19:03 IMPRESSION: Unchanged basilar pulmonary findings. No acute abdominal process identified on radiographs. Nonspecific but relatively nonobstructive bowel gas pattern. Assessment & Plan - Diagnosis (1) Dehydration Is this a current diagnosis for this admission?: Yes Plan: Improving. Remains on IV fluids. Not eating much. (2) Metastatic primary lung cancer Qualifiers: Laterality: unspecified laterality Qualified Code(s): C34.90 - Malignant neoplasm of unspecified part of unspecified bronchus or lung Plan: Treatment currently on hold. Further discussion after discharge. (3) Nausea & vomiting Qualifiers: Vomiting type: cyclical vomiting Vomiting Intractability: intractable Qualified Code(s): G43.A1 - Cyclical vomiting, intractable Is this a current diagnosis for this admission?: Yes Plan: I will stop phenergan at her request and add simethecon PRN. Consider reglan RTC if needed. - Plan Summary Plan Summary: Please call me with any questions or concerns.
[2017-09-17] MEDS: MORPHINE SULFATE 10 MG/ML INJ IV PRN (09:57)
[2017-09-17] MEDS: BENZONATATE 100 MG CAPSULE PO SCH ×4 (09:58→23:49)
[2017-09-17] MEDS: GUAIFENESIN 600 MG TABLET.SA PO SCH ×2 (09:58→23:49)
[2017-09-17] MEDS: AMLODIPINE BESYLATE 2.5 MG TABLET PO SCH (09:58)
[2017-09-17] MEDS: CALCIUM CARBONATE 500 MG TABLET PO SCH ×2 (09:58→17:26)
[2017-09-17] MEDS: FLUTICASONE/SALMETEROL DISKUS 250-50 MCG/DOSE IH SCH ×2 (09:59→23:49)
[2017-09-17] MEDS: DRONABINOL 2.5 MG CAPSULE PO SCH ×2 (09:59→17:27)
[2017-09-17] MEDS: ALBUTEROL SULFATE HFA (90 MCG/PUFF) 200 PUFF/8.5 GM MDI IH PRN (09:59)
[2017-09-17] MEDS: TAMOXIFEN CITRATE 10 MG TABLET PO SCH (10:00)
[2017-09-17] MEDS: BRIMONIDINE TARTRATE 0.2% OPH SOLN 5 ML OD SCH ×2 (10:00→17:29)
[2017-09-17] MEDS: RANOLAZINE 500 MG TAB.SR.12H PO SCH (10:00)
--- NOTE | 2017-09-17 13:29 | PDOC PROGRESS REPORT ---
Subjective Progress Note for:: 09/17/17 Subjective:: Patient denied chest pain or difficulty with her breathing but admitted to abdominal pain, particularly in sitting position. Appetite and P.O intake remain fair. Denied any nausea or vomiting. Reason For Visit: DEHYDRATION, LUNG NEOPLASM Physical Exam Vital Signs: Temp Pulse Resp BP Pulse Ox 97.3 F 98 18 146/81 H 96 09/17/17 12:00 09/17/17 12:00 09/17/17 12:00 09/17/17 12:00 09/17/17 12:00 Intake & Output 09/16/17 09/17/17 09/18/17 06:59 06:59 06:59 Intake Total 2550 Output Total 500 Balance 2049 Weight 81.3 kg General appearance: PRESENT: obese Head exam: PRESENT: atraumatic, normocephalic Mouth exam: PRESENT: moist Respiratory exam: PRESENT: clear to auscultation darinel, decreased breath sounds - at lung bases Cardiovascular exam: PRESENT: RRR. ABSENT: diastolic murmur, rubs, systolic murmur GI/Abdominal exam: PRESENT: distended, normal bowel sounds, soft. ABSENT: guarding, mass, organolmegaly, rebound, tenderness Extremities exam: ABSENT: pedal edema Musculoskeletal exam: PRESENT: normal inspection Neurological exam: PRESENT: alert, awake, oriented to person, oriented to place , oriented to time, oriented to situation, CN II-XII grossly intact. ABSENT: motor sensory deficit Psychiatric exam: PRESENT: appropriate affect, normal mood. ABSENT: homicidal ideation, suicidal ideation Skin exam: PRESENT: dry, intact, warm. ABSENT: cyanosis, rash Results Impressions: Abdomen X-Ray 09/14/17 19:03 IMPRESSION: Unchanged basilar pulmonary findings. No acute abdominal process identified on radiographs. Nonspecific but relatively nonobstructive bowel gas pattern. Assessment & Plan - Diagnosis (1) Dehydration Is this a current diagnosis for this admission?: Yes Plan: See covering attending physician orders. (2) Metastatic primary lung cancer Qualifiers: Laterality: unspecified laterality Qualified Code(s): C34.90 - Malignant neoplasm of unspecified part of unspecified bronchus or lung Is this a current diagnosis for this admission?: Yes Plan: See covering attending physician orders. (3) Malignant neoplasm of right upper lobe of lung Is this a current diagnosis for this admission?: Yes Plan: See covering attending physician orders. (4) Abdominal swelling, generalized Is this a current diagnosis for this admission?: Yes Plan: See covering attending physician orders. (5) Type 2 diabetes mellitus Qualifiers: Diabetes mellitus complication status: without complication Diabetes mellitus assisted insulin use: without rat exterminator use Qualified Code(s): E11.9 - Type 2 diabetes mellitus without complications Is this a current diagnosis for this admission?: Yes Plan: See covering attending physician orders. - Time Time Spent with patient: 25-34 minutes Medications reviewed and adjusted accordingly: Yes Anticipated discharge: Home with Homehealth Within: Other - Inpatient Certification Medical Necessity: Need Close Monitoring Due to Risk of Patient Decompensation, Need For IV Fluids, Risk of Complication if Not Cared For in Hospital Post Hospital Care: D/C [facility] Documentation - Plan Summary Plan Summary: D/C N/S with potassium infusion. Maintain on N/S at 75mL / hour. Continue all other current medication management.
[2017-09-17] MEDS: LATANOPROST 0.005% OPH SOLN 2.5 ML OU SCH (23:49)
[2017-09-17] MEDS: MONTELUKAST SODIUM 10 MG TABLET PO SCH (23:49)
[2017-09-18] MEDS: RANOLAZINE 500 MG TAB.SR.12H PO SCH ×3 (00:02→21:41)
[2017-09-18] MEDS: MORPHINE SULFATE 10 MG/ML INJ IV PRN ×2 (02:38→10:10)
[2017-09-18] MEDS: LANSOPRAZOLE 30 MG TAB.RAP.DR PO SCH (04:32)
[2017-09-18] MEDS: CLONIDINE HCL 0.1 MG TABLET PO SCH ×3 (05:31→21:42)
[2017-09-18] MEDS: ONDANSETRON HCL INJ/PF 4 MG/2 ML SDV IV PRN (10:17)
[2017-09-18] MEDS: BRIMONIDINE TARTRATE 0.2% OPH SOLN 5 ML OD SCH ×2 (10:54→17:05)
[2017-09-18] MEDS: BENZONATATE 100 MG CAPSULE PO SCH ×4 (11:02→21:41)
[2017-09-18] MEDS: GUAIFENESIN 600 MG TABLET.SA PO SCH ×2 (11:02→21:42)
[2017-09-18] MEDS: AMLODIPINE BESYLATE 2.5 MG TABLET PO SCH (11:02)
[2017-09-18] MEDS: DRONABINOL 2.5 MG CAPSULE PO SCH ×2 (11:02→17:06)
[2017-09-18] MEDS: TAMOXIFEN CITRATE 10 MG TABLET PO SCH (11:02)
[2017-09-18] MEDS: FLUTICASONE/SALMETEROL DISKUS 250-50 MCG/DOSE IH SCH ×2 (11:02→21:41)
[2017-09-18] MEDS: CALCIUM CARBONATE 500 MG TABLET PO SCH ×2 (11:02→17:06)
--- NOTE | 2017-09-18 12:41 | PDOC PROGRESS REPORT ---
Subjective Progress Note for:: 09/18/17 Subjective:: No chest pain or difficulty with her breathing. Appetite and P.O intake remain fair. Patient is more agreeable to Glucena intake but minimal real food. Denied any nausea or vomiting. Reason For Visit: DEHYDRATION, LUNG NEOPLASM Physical Exam Vital Signs: Temp Pulse Resp BP Pulse Ox 98.9 F 160 H 16 120/84 100 09/18/17 12:00 09/18/17 12:00 09/18/17 12:00 09/18/17 12:00 09/18/17 12:00 Intake & Output 09/17/17 09/18/17 09/19/17 06:59 06:59 06:59 Intake Total 2550 2430 Output Total 500 300 Balance 2049 2130 Weight 81.3 kg 80.2 kg Physical Exam: General appearance: PRESENT: obese Head exam: PRESENT: atraumatic, normocephalic Mouth exam: PRESENT: moist Respiratory exam: PRESENT: clear to auscultation darinel, decreased breath sounds - at lung bases Cardiovascular exam: PRESENT: RRR. ABSENT: diastolic murmur, rubs, systolic murmur GI/Abdominal exam: PRESENT: distended, normal bowel sounds, soft. ABSENT: guarding, mass, organomegaly, rebound, tenderness Extremities exam: ABSENT: pedal edema Musculoskeletal exam: PRESENT: normal inspection Neurological exam: PRESENT: alert, awake, oriented to person, oriented to place , oriented to time, oriented to situation, CN II-XII grossly intact. ABSENT: motor sensory deficit Psychiatric exam: PRESENT: appropriate affect, normal mood. ABSENT: homicidal ideation, suicidal ideation Skin exam: PRESENT: dry, intact, warm. ABSENT: cyanosis, rash Results Laboratory Results: 09/18/17 08:51 Stool for White Cells NO WBCs SEEN Impressions: Abdomen X-Ray 09/14/17 19:03 IMPRESSION: Unchanged basilar pulmonary findings. No acute abdominal process identified on radiographs. Nonspecific but relatively nonobstructive bowel gas pattern. Assessment & Plan - Diagnosis (1) Dehydration Is this a current diagnosis for this admission?: Yes (2) Metastatic primary lung cancer Qualifiers: Laterality: unspecified laterality Qualified Code(s): C34.90 - Malignant neoplasm of unspecified part of unspecified bronchus or lung Is this a current diagnosis for this admission?: Yes (3) Malignant neoplasm of right upper lobe of lung Is this a current diagnosis for this admission?: Yes (4) Abdominal swelling, generalized Is this a current diagnosis for this admission?: Yes (5) Type 2 diabetes mellitus Qualifiers: Diabetes mellitus complication status: without complication Diabetes mellitus parts counterman insulin use: without parts counterman use Qualified Code(s): E11.9 - Type 2 diabetes mellitus without complications Is this a current diagnosis for this admission?: Yes - Time Time Spent with patient: 25-34 minutes Medications reviewed and adjusted accordingly: Yes Anticipated discharge: Other Within: Other - Inpatient Certification Based on my medical assessment, after consideration of the patient's comorbidities, presenting symptoms, or acuity I expect that the services needed warrant INPATIENT care.: Yes I certify that my determination is in accordance with my understanding of Medicare's requirements for reasonable and necessary INPATIENT services [42 CFR 412.3e].: Yes Medical Necessity: Need Close Monitoring Due to Risk of Patient Decompensation, Need For IV Fluids, Need for Pain Control, Risk of Complication if Not Cared For in Hospital Post Hospital Care: D/C [place] Documentation - Plan Summary Plan Summary: See covering attending physician orders.
[2017-09-18] MEDS: POTASSI CL 40 MEQ/NS 1L 1,000 ML IV PRN (17:46)
[2017-09-18] MEDS: MONTELUKAST SODIUM 10 MG TABLET PO SCH (21:41)
[2017-09-18] MEDS: LATANOPROST 0.005% OPH SOLN 2.5 ML OU SCH (21:44)
[2017-09-19] MEDS: MORPHINE SULFATE 10 MG/ML INJ IV PRN ×4 (02:53→22:42)
[2017-09-19] MEDS: LANSOPRAZOLE 30 MG TAB.RAP.DR PO SCH (06:40)
[2017-09-19] MEDS: CLONIDINE HCL 0.1 MG TABLET PO SCH ×3 (06:40→22:28)
--- NOTE | 2017-09-19 08:34 | PDOC PROGRESS REPORT ---
Subjective Progress Note for:: 09/19/17 Subjective:: Patient still with fairly severe diarrhea, C. difficile testing as well as other infectious testing is all negative, she is not really tolerating much p.o. , today we had a long discussion about consideration of hospice. Reason For Visit: DEHYDRATION, LUNG NEOPLASM Physical Exam Vital Signs: Temp Pulse Resp BP Pulse Ox 98.0 F 112 H 18 143/81 H 99 09/18/17 21:41 09/18/17 21:41 09/18/17 21:41 09/18/17 21:41 09/18/17 21:41 Intake & Output 09/18/17 09/19/17 09/20/17 06:59 06:59 06:59 Intake Total 2430 3660 Output Total 300 Balance 2130 3660 Weight 80.2 kg 81.1 kg General appearance: PRESENT: no acute distress, well-developed, well-nourished Head exam: PRESENT: atraumatic, normocephalic Eye exam: PRESENT: conjunctiva pink, EOMI, PERRLA. ABSENT: scleral icterus Ear exam: PRESENT: normal external ear exam Mouth exam: PRESENT: moist, tongue midline Neck exam: ABSENT: carotid bruit, JVD, lymphadenopathy, thyromegaly Respiratory exam: PRESENT: clear to auscultation darinel. ABSENT: rales, rhonchi, wheezes Cardiovascular exam: PRESENT: RRR. ABSENT: diastolic murmur, rubs, systolic murmur Pulses: PRESENT: normal dorsalis pedis pul Vascular exam: PRESENT: normal capillary refill GI/Abdominal exam: PRESENT: normal bowel sounds, soft. ABSENT: distended, guarding, mass, organolmegaly, rebound, tenderness Rectal exam: PRESENT: deferred Extremities exam: PRESENT: full ROM. ABSENT: calf tenderness, clubbing, pedal edema Neurological exam: PRESENT: alert, awake, oriented to person, oriented to place , oriented to time, oriented to situation, CN II-XII grossly intact. ABSENT: motor sensory deficit Psychiatric exam: PRESENT: appropriate affect, normal mood. ABSENT: homicidal ideation, suicidal ideation Skin exam: PRESENT: dry, intact, warm. ABSENT: cyanosis, rash Results Laboratory Results: 09/18/17 08:51 Stool for White Cells NO WBCs SEEN Impressions: Abdomen X-Ray 09/14/17 19:03 IMPRESSION: Unchanged basilar pulmonary findings. No acute abdominal process identified on radiographs. Nonspecific but relatively nonobstructive bowel gas pattern. Assessment & Plan - Diagnosis (1) Dehydration Is this a current diagnosis for this admission?: Yes Plan: Continue with hydration at present, secondary to severe diarrhea and poor p.o. intake from carcinomatosis (2) Gastroenteritis Is this a current diagnosis for this admission?: Yes (3) Malignant neoplasm of right upper lobe of lung Is this a current diagnosis for this admission?: Yes Plan: Today we had a long discussion about hospice, I discussed with her that it is unlikely that she be able to get to further active treatment, to that extent I brought up the conversation about hospice, we discussed goals of therapy and the setting in which to initiate hospice. She has a son in [place] but she is not ready to move there. Most of her other support systems here. But we discussed that she was found down for several hours before she was brought in , so that would be a situation we would need to prevent. I will discuss further with her over the next 24 hours and I will call hospice myself and initiate that as needed. (4) Nausea & vomiting Qualifiers: Vomiting type: cyclical vomiting Vomiting Intractability: intractable Qualified Code(s): G43.A1 - Cyclical vomiting, intractable Is this a current diagnosis for this admission?: Yes Plan: Continue current supportive measures - Time Time Spent with patient: 35 or more minutes - Inpatient Certification Based on my medical assessment, after consideration of the patient's comorbidities, presenting symptoms, or acuity I expect that the services needed warrant INPATIENT care.: Yes I certify that my determination is in accordance with my understanding of Medicare's requirements for reasonable and necessary INPATIENT services [42 CFR 412.3e].: Yes Medical Necessity: Need For IV Fluids
[2017-09-19] MEDS: GUAIFENESIN 600 MG TABLET.SA PO SCH ×2 (09:12→22:20)
[2017-09-19] MEDS: CALCIUM CARBONATE 500 MG TABLET PO SCH ×2 (09:12→17:52)
[2017-09-19] MEDS: BRIMONIDINE TARTRATE 0.2% OPH SOLN 5 ML OD SCH ×2 (09:12→17:51)
[2017-09-19] MEDS: TAMOXIFEN CITRATE 10 MG TABLET PO SCH (09:12)
[2017-09-19] MEDS: FLUTICASONE/SALMETEROL DISKUS 250-50 MCG/DOSE IH SCH ×2 (09:12→22:20)
[2017-09-19] MEDS: AMLODIPINE BESYLATE 2.5 MG TABLET PO SCH (09:12)
[2017-09-19] MEDS: BENZONATATE 100 MG CAPSULE PO SCH ×4 (09:12→22:20)
[2017-09-19] MEDS: RANOLAZINE 500 MG TAB.SR.12H PO SCH ×2 (09:12→22:20)
[2017-09-19] MEDS: DRONABINOL 2.5 MG CAPSULE PO SCH ×2 (09:12→17:49)
[2017-09-19] MEDS: POTASSI CL 40 MEQ/NS 1L 1,000 ML IV PRN (14:11)
--- NOTE | 2017-09-19 19:53 | PDOC PROGRESS REPORT ---
Subjective Progress Note for:: 09/19/17 Subjective:: Patient continues to have diarrhea, she has abdominal carcinomatosis, the diarrhea is most likely related to the cancer, she was seen by oncology, hospice as an option was discussed with patient by the treating oncologist Reason For Visit: DEHYDRATION, LUNG NEOPLASM Physical Exam Vital Signs: Temp Pulse Resp BP Pulse Ox 97.7 F 114 H 22 H 144/87 H 96 09/19/17 12:00 09/19/17 12:00 09/19/17 12:00 09/19/17 12:00 09/19/17 12:00 Intake & Output 09/18/17 09/19/17 09/20/17 06:59 06:59 06:59 Intake Total 2430 3660 2146 Output Total 300 Balance 2130 3660 2146 Weight 80.2 kg 81.1 kg General appearance: PRESENT: no acute distress Eye exam: PRESENT: PERRLA Cardiovascular exam: PRESENT: +S1, +S2 GI/Abdominal exam: PRESENT: soft Neurological exam: PRESENT: alert Results Impressions: Abdomen X-Ray 09/14/17 19:03 IMPRESSION: Unchanged basilar pulmonary findings. No acute abdominal process identified on radiographs. Nonspecific but relatively nonobstructive bowel gas pattern. Assessment & Plan - Diagnosis (1) Diarrhea Qualifiers: Diarrhea type: unspecified type Qualified Code(s): R19.7 - Diarrhea, unspecified Is this a current diagnosis for this admission?: Yes (2) Hypokalemia Is this a current diagnosis for this admission?: Yes (3) Malignant neoplasm of right upper lobe of lung Is this a current diagnosis for this admission?: Yes Plan: Patient is requesting for the internal medicine physician assistant Dr. bryan to be consulted
[2017-09-19] MEDS: MONTELUKAST SODIUM 10 MG TABLET PO SCH (22:20)
[2017-09-19] MEDS: LATANOPROST 0.005% OPH SOLN 2.5 ML OU SCH (22:20)
[2017-09-20] MEDS: POTASSI CL 40 MEQ/NS 1L 1,000 ML IV PRN ×2 (03:54→21:09)
[2017-09-20] MEDS: MORPHINE SULFATE 10 MG/ML INJ IV PRN ×4 (04:08→21:09)
[2017-09-20] MEDS: CLONIDINE HCL 0.1 MG TABLET PO SCH ×3 (05:56→21:11)
[2017-09-20] MEDS: LANSOPRAZOLE 30 MG TAB.RAP.DR PO SCH (05:57)
--- NOTE | 2017-09-20 08:53 | PDOC PROGRESS REPORT ---
Subjective Progress Note for:: 09/20/17 Subjective:: Patient feels a little bit better this morning still very short of breath, she has discussed her current situation with her son who will be making arrangements to come here, I have asked nursing to get a hold of the son so I could speak with him today. She is agreeable to hospice however we need to figure out which situation that would be. Unfortunately at home she does not have enough support, and we need to see if the son is ready to take her to [place]. She did agree to DNR today. Reason For Visit: DEHYDRATION, LUNG NEOPLASM Physical Exam Vital Signs: Temp Pulse Resp BP Pulse Ox 97.6 F 113 H 16 126/86 H 97 09/20/17 08:00 09/20/17 08:00 09/20/17 08:00 09/20/17 08:00 09/20/17 08:00 Intake & Output 09/19/17 09/20/17 09/21/17 06:59 06:59 06:59 Intake Total 3660 3506 Output Total 400 Balance 3660 3106 Weight 81.1 kg 80.7 kg General appearance: PRESENT: no acute distress, well-developed, well-nourished Head exam: PRESENT: atraumatic, normocephalic Eye exam: PRESENT: conjunctiva pink, EOMI, PERRLA. ABSENT: scleral icterus Ear exam: PRESENT: normal external ear exam Mouth exam: PRESENT: moist, tongue midline Neck exam: ABSENT: carotid bruit, JVD, lymphadenopathy, thyromegaly Respiratory exam: PRESENT: clear to auscultation darinel. ABSENT: rales, rhonchi, wheezes Cardiovascular exam: PRESENT: RRR. ABSENT: diastolic murmur, rubs, systolic murmur Pulses: PRESENT: normal dorsalis pedis pul Vascular exam: PRESENT: normal capillary refill GI/Abdominal exam: PRESENT: normal bowel sounds, soft. ABSENT: distended, guarding, mass, organolmegaly, rebound, tenderness Rectal exam: PRESENT: deferred Extremities exam: PRESENT: full ROM. ABSENT: calf tenderness, clubbing, pedal edema Neurological exam: PRESENT: alert, awake, oriented to person, oriented to place , oriented to time, oriented to situation, CN II-XII grossly intact. ABSENT: motor sensory deficit Psychiatric exam: PRESENT: appropriate affect, normal mood. ABSENT: homicidal ideation, suicidal ideation Skin exam: PRESENT: dry, intact, warm. ABSENT: cyanosis, rash Results Impressions: Abdomen X-Ray 09/14/17 19:03 IMPRESSION: Unchanged basilar pulmonary findings. No acute abdominal process identified on radiographs. Nonspecific but relatively nonobstructive bowel gas pattern. Assessment & Plan - Diagnosis (1) Dehydration Is this a current diagnosis for this admission?: Yes Plan: Continue current support (2) Gastroenteritis Is this a current diagnosis for this admission?: Yes Plan: Still severe, continued secondary to cancer (3) Malignant neoplasm of right upper lobe of lung Is this a current diagnosis for this admission?: Yes Plan: planning on hospice therapy, patient agreed to DNR, we are trying to arrange that once we are in contact with his son. (4) Nausea & vomiting Qualifiers: Vomiting type: cyclical vomiting Vomiting Intractability: intractable Qualified Code(s): G43.A1 - Cyclical vomiting, intractable Is this a current diagnosis for this admission?: Yes Plan: Continue current supportive care - Time Time Spent with patient: 35 or more minutes - Inpatient Certification Based on my medical assessment, after consideration of the patient's comorbidities, presenting symptoms, or acuity I expect that the services needed warrant INPATIENT care.: Yes I certify that my determination is in accordance with my understanding of Medicare's requirements for reasonable and necessary INPATIENT services [42 CFR 412.3e].: Yes Medical Necessity: Risk of Complication if Not Cared For in Hospital
[2017-09-20] MEDS: BENZONATATE 100 MG CAPSULE PO SCH ×4 (10:54→21:11)
[2017-09-20] MEDS: AMLODIPINE BESYLATE 2.5 MG TABLET PO SCH (10:55)
[2017-09-20] MEDS ORDERED: MAG HYDROX/AL HYDROX/SIMETH SUSP 30 ML UDCUP PO PRN (11:58)
[2017-09-20] MEDS: CALCIUM CARBONATE 500 MG TABLET PO SCH ×2 (12:37→18:16)
[2017-09-20] MEDS: BRIMONIDINE TARTRATE 0.2% OPH SOLN 5 ML OD SCH ×2 (12:37→18:15)
[2017-09-20] MEDS: RANOLAZINE 500 MG TAB.SR.12H PO SCH ×2 (13:32→21:11)
[2017-09-20] MEDS: FLUTICASONE/SALMETEROL DISKUS 250-50 MCG/DOSE IH SCH ×2 (13:32→21:11)
[2017-09-20] MEDS: DRONABINOL 2.5 MG CAPSULE PO SCH ×2 (13:32→18:16)
[2017-09-20] MEDS: TAMOXIFEN CITRATE 10 MG TABLET PO SCH (13:32)
[2017-09-20] MEDS: GUAIFENESIN 600 MG TABLET.SA PO SCH ×2 (13:32→21:11)
--- NOTE | 2017-09-20 20:32 | PDOC PROGRESS REPORT ---
Subjective Progress Note for:: 09/20/17 Subjective:: Patient condition is deterioriating ,she was seen by the oncologist ,she continues to have diarrhea ,not able to stand Reason For Visit: DEHYDRATION, LUNG NEOPLASM Physical Exam Vital Signs: Temp Pulse Resp BP Pulse Ox 97.9 F 123 H 16 144/89 H 96 09/20/17 20:20 09/20/17 20:20 09/20/17 20:20 09/20/17 20:20 09/20/17 20:20 Pulse Oximeter Continuous Start: 09/20/17 11: 56 Freq: RTQ4 Status: Active Document 09/20/17 16:00 JDR (Rec: 09/20/17 16:46 [email or web address] [email or web address]) Pulse Oximetry Assessment Oxygen Saturation (92-100) 97 Oxygen Flow Rate (L/min) 2 Oxygen Delivery Method Nasal Cannula Equipment Usage Equipment in Use Continuous SpO2 Machine # 4 Intake & Output 09/19/17 09/20/17 09/21/17 06:59 06:59 06:59 Intake Total 3660 3506 0 Output Total 400 350 Balance 3660 3106 -350 Weight 81.1 kg 80.7 kg General appearance: PRESENT: mild distress Eye exam: PRESENT: PERRLA Respiratory exam: PRESENT: decreased breath sounds Cardiovascular exam: PRESENT: +S1, +S2 GI/Abdominal exam: PRESENT: soft Neurological exam: PRESENT: alert Results Laboratory Results: 09/18/17 08:51 Stool - Stool - Final 09/18/17 08:51 Stool - Stool Stool Culture - Final NO SALMONELLA, SHIGELLA, CAMPYLOBACTER, OR E.COLI 0157 RECOVERED. NEGATIVE FOR SHIGA TOXINS 1&2. Impressions: Abdomen X-Ray 09/14/17 19:03 IMPRESSION: Unchanged basilar pulmonary findings. No acute abdominal process identified on radiographs. Nonspecific but relatively nonobstructive bowel gas pattern. Assessment & Plan - Diagnosis (1) Diarrhea Qualifiers: Diarrhea type: unspecified type Qualified Code(s): R19.7 - Diarrhea, unspecified Is this a current diagnosis for this admission?: Yes (2) Hypokalemia Is this a current diagnosis for this admission?: Yes (3) Malignant neoplasm of right upper lobe of lung Is this a current diagnosis for this admission?: Yes
[2017-09-20] MEDS: ONDANSETRON HCL INJ/PF 4 MG/2 ML SDV IV PRN (21:09)
[2017-09-20] MEDS: LATANOPROST 0.005% OPH SOLN 2.5 ML OU SCH (21:11)
[2017-09-20] MEDS: MONTELUKAST SODIUM 10 MG TABLET PO SCH (21:11)
[2017-09-21] MEDS: MORPHINE SULFATE 10 MG/ML INJ IV PRN ×4 (01:56→17:54)
[2017-09-21] MEDS: ONDANSETRON HCL INJ/PF 4 MG/2 ML SDV IV PRN ×2 (05:18→11:29)
[2017-09-21] MEDS: CLONIDINE HCL 0.1 MG TABLET PO SCH ×3 (06:05→21:55)
[2017-09-21] MEDS: LANSOPRAZOLE 30 MG TAB.RAP.DR PO SCH (06:05)
[2017-09-21] MEDS: POTASSI CL 40 MEQ/NS 1L 1,000 ML IV PRN (07:36)
--- NOTE | 2017-09-21 08:31 | PDOC PROGRESS REPORT ---
Subjective Progress Note for:: 09/21/17 Subjective:: Patient states that she is feeling about the same. She states that her son is scheduled to take a tour of [facility] and that he is talking about plans at discharge, but she is not aware of a decision yet. Reason For Visit: DEHYDRATION, LUNG NEOPLASM Physical Exam Vital Signs: Temp Pulse Resp BP Pulse Ox 98.1 F 115 H 18 150/74 H 97 09/21/17 03:44 09/21/17 03:44 09/21/17 03:44 09/21/17 03:44 09/21/17 04:30 Pulse Oximeter Continuous Start: 09/20/17 11: 56 Freq: RTQ4 Status: Active Document 09/21/17 04:30 CMI (Rec: 09/21/17 04:30 CMI [email or web address]) Pulse Oximetry Assessment Oxygen Saturation (92-100) 97 Oxygen Flow Rate (L/min) 2 Oxygen Delivery Method Nasal Cannula Fraction of Inspired Oxygen (FIO2) 28 Equipment Usage Equipment in Use Continuous SpO2 Machine # 4 Intake & Output 09/20/17 09/21/17 09/22/17 06:59 06:59 06:59 Intake Total 3506 1940 Output Total 400 1250 Balance 3106 690 Weight 80.7 kg General appearance: PRESENT: no acute distress Respiratory exam: PRESENT: clear to auscultation darinel, unlabored Cardiovascular exam: PRESENT: RRR GI/Abdominal exam: PRESENT: distended, firm, hypoactive bowel sounds Results Laboratory Results: 09/18/17 08:51 Stool - Stool - Final 09/18/17 08:51 Stool - Stool Stool Culture - Final NO SALMONELLA, SHIGELLA, CAMPYLOBACTER, OR E.COLI 0157 RECOVERED. NEGATIVE FOR SHIGA TOXINS 1&2. Impressions: Abdomen X-Ray 09/14/17 19:03 IMPRESSION: Unchanged basilar pulmonary findings. No acute abdominal process identified on radiographs. Nonspecific but relatively nonobstructive bowel gas pattern. Assessment & Plan - Diagnosis (1) Dehydration Is this a current diagnosis for this admission?: Yes (2) Metastatic primary lung cancer Qualifiers: Laterality: unspecified laterality Qualified Code(s): C34.90 - Malignant neoplasm of unspecified part of unspecified bronchus or lung Is this a current diagnosis for this admission?: Yes Plan: Await plans for discharge. She is a great candidate for Hospice. Further treatment will be palliative. (3) Nausea & vomiting Qualifiers: Vomiting type: cyclical vomiting Vomiting Intractability: intractable Qualified Code(s): G43.A1 - Cyclical vomiting, intractable Is this a current diagnosis for this admission?: Yes - Plan Summary Plan Summary: Please call if needed.
--- NOTE | 2017-09-21 10:37 | PDOC PROGRESS REPORT ---
Subjective Progress Note for:: 09/21/17 Subjective:: Patient is currently doing fair Patient's denied any chest pain denied any shortness of the breath Still having some nausea vomiting Discussed with the oncology suggest for the hospice care and patient's son is already discussed in the discharge plan is waiting to placement and patient's agree for the hospice care Reason For Visit: DEHYDRATION, LUNG NEOPLASM Physical Exam Vital Signs: Temp Pulse Resp BP Pulse Ox 98.1 F 115 H 18 150/74 H 97 09/21/17 03:44 09/21/17 03:44 09/21/17 03:44 09/21/17 03:44 09/21/17 04:30 Pulse Oximeter Continuous Start: 09/20/17 11: 56 Freq: RTQ4 Status: Active Document 09/21/17 04:30 CMI (Rec: 09/21/17 04:30 CMI [email or web address]) Pulse Oximetry Assessment Oxygen Saturation (92-100) 97 Oxygen Flow Rate (L/min) 2 Oxygen Delivery Method Nasal Cannula Fraction of Inspired Oxygen (FIO2) 28 Equipment Usage Equipment in Use Continuous SpO2 Machine # 4 Intake & Output 09/20/17 09/21/17 09/22/17 06:59 06:59 06:59 Intake Total 3506 1940 Output Total 400 1250 Balance 3106 690 Weight 80.7 kg General appearance: PRESENT: no acute distress, well-developed, well-nourished Head exam: PRESENT: atraumatic, normocephalic Eye exam: PRESENT: conjunctiva pink, EOMI, PERRLA. ABSENT: scleral icterus Ear exam: PRESENT: normal external ear exam Mouth exam: PRESENT: moist, tongue midline Neck exam: PRESENT: full ROM. ABSENT: carotid bruit, JVD, lymphadenopathy, thyromegaly Respiratory exam: PRESENT: clear to auscultation darinel Cardiovascular exam: PRESENT: RRR. ABSENT: diastolic murmur, rubs, systolic murmur Pulses: PRESENT: normal dorsalis pedis pul, +2 pedal pulses bilateral Vascular exam: PRESENT: normal capillary refill GI/Abdominal exam: PRESENT: distended, normal bowel sounds, soft. ABSENT: guarding, mass, organolmegaly, rebound, tenderness Rectal exam: PRESENT: deferred Neurological exam: PRESENT: alert, awake, oriented to person, oriented to place , oriented to time, oriented to situation, CN II-XII grossly intact. ABSENT: motor sensory deficit Psychiatric exam: PRESENT: appropriate affect, normal mood. ABSENT: homicidal ideation, suicidal ideation Skin exam: PRESENT: dry, intact, warm. ABSENT: cyanosis, rash Results Laboratory Results: 09/18/17 08:51 Stool - Stool - Final 09/18/17 08:51 Stool - Stool Stool Culture - Final NO SALMONELLA, SHIGELLA, CAMPYLOBACTER, OR E.COLI 0157 RECOVERED. NEGATIVE FOR SHIGA TOXINS 1&2. Impressions: Abdomen X-Ray 09/14/17 19:03 IMPRESSION: Unchanged basilar pulmonary findings. No acute abdominal process identified on radiographs. Nonspecific but relatively nonobstructive bowel gas pattern. Assessment & Plan - Diagnosis (1) Dehydration Is this a current diagnosis for this admission?: Yes Plan: Currently all resolved (2) Metastatic primary lung cancer Qualifiers: Laterality: unspecified laterality Qualified Code(s): C34.90 - Malignant neoplasm of unspecified part of unspecified bronchus or lung Is this a current diagnosis for this admission?: Yes Plan: As per discussed with the oncology possible hospice care (3) Abdominal swelling, generalized Is this a current diagnosis for this admission?: Yes Plan: Order the ultrasound of the abdomen see if the ascites fluid can be tapped for the palliative purpose (4) Nausea & vomiting Qualifiers: Vomiting type: cyclical vomiting Vomiting Intractability: intractable Qualified Code(s): G43.A1 - Cyclical vomiting, intractable Is this a current diagnosis for this admission?: Yes (5) Pleural effusion Is this a current diagnosis for this admission?: Yes (6) Sleep apnea Qualifiers: Sleep apnea type: unspecified type Qualified Code(s): G47.30 - Sleep apnea , unspecified Is this a current diagnosis for this admission?: Yes (7) Type 2 diabetes mellitus Qualifiers: Diabetes mellitus complication status: without complication Diabetes mellitus shelter insulin use: without ferry terminal supervisor use Qualified Code(s): E11.9 - Type 2 diabetes mellitus without complications Is this a current diagnosis for this admission?: Yes - Time Time Spent with patient: 15-24 minutes Medications reviewed and adjusted accordingly: Yes Anticipated discharge: SNF Within: Other - Inpatient Certification Medical Necessity: Need Close Monitoring Due to Risk of Patient Decompensation Post Hospital Care: D/C Tool Room Supervisor Documentation - Plan Summary Plan Summary: As per discussed with the patient's agree with the DNR/DNI and the hospice care will order the ultrasound of the abdomen to see with the patient ascites fluid can be tapped for palliative purposes
[2017-09-21] MEDS: AMLODIPINE BESYLATE 2.5 MG TABLET PO SCH (11:34)
[2017-09-21] MEDS: BENZONATATE 100 MG CAPSULE PO SCH ×4 (11:34→21:55)
[2017-09-21] MEDS: TAMOXIFEN CITRATE 10 MG TABLET PO SCH (11:34)
[2017-09-21] MEDS: CALCIUM CARBONATE 500 MG TABLET PO SCH ×2 (11:34→17:57)
[2017-09-21] MEDS: DRONABINOL 2.5 MG CAPSULE PO SCH ×2 (11:34→17:57)
[2017-09-21] MEDS: FLUTICASONE/SALMETEROL DISKUS 250-50 MCG/DOSE IH SCH ×2 (11:34→21:55)
[2017-09-21] MEDS: BRIMONIDINE TARTRATE 0.2% OPH SOLN 5 ML OD SCH ×2 (11:34→17:54)
[2017-09-21] MEDS: RANOLAZINE 500 MG TAB.SR.12H PO SCH ×2 (11:34→21:55)
[2017-09-21] MEDS: GUAIFENESIN 600 MG TABLET.SA PO SCH ×2 (11:34→21:54)
[2017-09-21] MEDS: MONTELUKAST SODIUM 10 MG TABLET PO SCH (21:55)
[2017-09-21] MEDS: LATANOPROST 0.005% OPH SOLN 2.5 ML OU SCH (21:55)
[2017-09-22] MEDS ORDERED: DILTIAZEM HCL 30 MG TABLET PO ONE (00:45)
[2017-09-22] MEDS ORDERED: HYDRALAZINE HCL INJ/PF 20 MG/1 ML SDV IV ONE (00:45)
[2017-09-22] MEDS: POTASSI CL 40 MEQ/NS 1L 1,000 ML IV PRN ×2 (01:59→16:01)
[2017-09-22] MEDS: MORPHINE SULFATE 10 MG/ML INJ IV PRN ×4 (02:07→19:15)
[2017-09-22] MEDS: LANSOPRAZOLE 30 MG TAB.RAP.DR PO SCH (06:09)
[2017-09-22] MEDS: DILTIAZEM HCL 30 MG TABLET PO SCH ×3 (06:09→17:05)
[2017-09-22] MEDS: CLONIDINE HCL 0.1 MG TABLET PO SCH ×3 (06:09→21:18)
[2017-09-22] MEDS ORDERED: HYDRALAZINE HCL INJ/PF 20 MG/1 ML SDV IV PRN (07:03)
--- NOTE | 2017-09-22 07:31 | PDOC PROGRESS REPORT ---
Subjective Subjective:: Patient is currently doing fair Patient's denied any chest pain denied any shortness of the breath Still having some nausea vomiting Discussed with the oncology suggest for the hospice care and patient's son is already discussed in the discharge plan is waiting to placement and patient's agree for the hospice care pt still very poor appetite pt bp is high and pain level is go up adjust pain med Reason For Visit: DEHYDRATION, LUNG NEOPLASM Physical Exam Vital Signs: Temp Pulse Resp BP Pulse Ox 99.0 F 130 H 23 H 180/94 H 96 09/22/17 00:00 09/22/17 00:00 09/22/17 00:00 09/22/17 00:00 09/22/17 04:00 Pulse Oximeter Continuous Start: 09/20/17 11: 56 Freq: RTQ4 Status: Active Document 09/22/17 04:00 LRO (Rec: 09/22/17 06:49 LRO [email or web address]) Pulse Oximetry Assessment Oxygen Saturation (92-100) 96 Oxygen Flow Rate (L/min) 2 Oxygen Delivery Method Nasal Cannula Fraction of Inspired Oxygen (FIO2) 28 Equipment Usage Equipment in Use Continuous SpO2 Machine # 4 Intake & Output 09/21/17 09/22/17 09/23/17 06:59 06:59 06:59 Intake Total 1940 1490 Output Total 1250 600 Balance 690 890 General appearance: PRESENT: no acute distress Eye exam: PRESENT: PERRLA Respiratory exam: PRESENT: decreased breath sounds Cardiovascular exam: PRESENT: +S1, +S2, tachycardia GI/Abdominal exam: PRESENT: ascites, distended Extremities exam: ABSENT: pedal edema Neurological exam: PRESENT: alert, awake, oriented to person, oriented to place Psychiatric exam: PRESENT: depressed Results Impressions: Abdomen X-Ray 09/14/17 19:03 IMPRESSION: Unchanged basilar pulmonary findings. No acute abdominal process identified on radiographs. Nonspecific but relatively nonobstructive bowel gas pattern. Assessment & Plan - Diagnosis (1) Dehydration Is this a current diagnosis for this admission?: Yes Plan: Currently all resolved (2) Metastatic primary lung cancer Qualifiers: Laterality: unspecified laterality Qualified Code(s): C34.90 - Malignant neoplasm of unspecified part of unspecified bronchus or lung Is this a current diagnosis for this admission?: Yes Plan: As per discussed with the oncology possible hospice care (3) Abdominal swelling, generalized Is this a current diagnosis for this admission?: Yes Plan: pending u/s report (4) Nausea & vomiting Qualifiers: Vomiting type: cyclical vomiting Vomiting Intractability: intractable Qualified Code(s): G43.A1 - Cyclical vomiting, intractable Is this a current diagnosis for this admission?: Yes (5) Pleural effusion Is this a current diagnosis for this admission?: Yes (6) Sleep apnea Qualifiers: Sleep apnea type: unspecified type Qualified Code(s): G47.30 - Sleep apnea , unspecified Is this a current diagnosis for this admission?: Yes (7) Type 2 diabetes mellitus Qualifiers: Diabetes mellitus complication status: without complication Diabetes mellitus long-term insulin use: without long-term use Qualified Code(s): E11.9 - Type 2 diabetes mellitus without complications Is this a current diagnosis for this admission?: Yes - Time Time Spent with patient: 15-24 minutes Medications reviewed and adjusted accordingly: Yes Anticipated discharge: Hospice Within: Other - Inpatient Certification Medical Necessity: Need Close Monitoring Due to Risk of Patient Decompensation Post Hospital Care: D/C Director Physical Therapy Documentation - Plan Summary Plan Summary: pt prgonosis is very poor d/w pt family and arrange hospic care as bed avaible
--- NOTE | 2017-09-22 09:34 | RADIOLOGY REPORT (SQ) ---
EXAM DESCRIPTION: U/S ABDOMEN LIMITED W/O DOP COMPLETED DATE/TIME: 09/21/2017 8:42 pm REASON FOR STUDY: ascites COMPARISON: None. TECHNIQUE: Limited Static and real time durand scale imaging performed of the 4 abdominal quadrants an d the midline. LIMITATIONS: None. FINDINGS: ASCITES: Moderate ascites. OTHER: No other significant finding. IMPRESSION: MODERATE ASCITES. TECHNICAL DOCUMENTATION: JOB ID: [id number] [employer]- All Rights Reserved
[2017-09-22] MEDS: BRIMONIDINE TARTRATE 0.2% OPH SOLN 5 ML OD SCH ×2 (09:54→17:04)
[2017-09-22] MEDS: FLUTICASONE/SALMETEROL DISKUS 250-50 MCG/DOSE IH SCH ×2 (09:54→21:18)
[2017-09-22] MEDS: RANOLAZINE 500 MG TAB.SR.12H PO SCH ×2 (09:55→21:18)
[2017-09-22] MEDS: CALCIUM CARBONATE 500 MG TABLET PO SCH ×2 (09:55→17:05)
[2017-09-22] MEDS: BENZONATATE 100 MG CAPSULE PO SCH ×4 (09:55→21:18)
[2017-09-22] MEDS: TAMOXIFEN CITRATE 10 MG TABLET PO SCH (09:55)
[2017-09-22] MEDS: GUAIFENESIN 600 MG TABLET.SA PO SCH ×2 (09:56→21:18)
[2017-09-22] MEDS ORDERED: LIDOCAINE 2% VISCOUS SOLN 20 ML UDCUP PO PRN (19:55)
[2017-09-22] MEDS ORDERED: MAG HYDROX/AL HYDROX/SIMETH SUSP 30 ML UDCUP PO PRN (19:55)
[2017-09-22] MEDS ORDERED: METOCLOPRAMIDE HCL ORAL SOLN 10 MG/10 ML UDCUP PO PRN (19:55)
[2017-09-22] MEDS ORDERED: HYDROCODONE BIT/HOMATROPINE 5-1.5 MG TABLET PO PRN (19:59)
[2017-09-22] MEDS: LATANOPROST 0.005% OPH SOLN 2.5 ML OU SCH (21:18)
[2017-09-22] MEDS: MONTELUKAST SODIUM 10 MG TABLET PO SCH (21:18)
[2017-09-23] MEDS: DILTIAZEM HCL 30 MG TABLET PO SCH ×5 (00:44→23:02)
[2017-09-23] MEDS: HYDROMORPHONE HCL INJ/PF 2 MG/ML AMPULE IV PRN ×6 (01:19→21:18)
[2017-09-23] MEDS: POTASSI CL 40 MEQ/NS 1L 1,000 ML IV PRN (02:16)
[2017-09-23] MEDS: CLONIDINE HCL 0.1 MG TABLET PO SCH ×3 (05:59→21:21)
[2017-09-23] MEDS: LANSOPRAZOLE 30 MG TAB.RAP.DR PO SCH (05:59)
--- NOTE | 2017-09-23 07:52 | PDOC PROGRESS REPORT ---
Subjective Progress Note for:: 09/23/17 Subjective:: Patient's condition is more worseningPatient's moning From the pain and asking for the more pain medications Patient is currently alterd Reason For Visit: DEHYDRATION, LUNG NEOPLASM Physical Exam Vital Signs: Temp Pulse Resp BP Pulse Ox 97.5 F 116 H 27 H 140/72 H 97 09/22/17 20:42 09/22/17 20:42 09/22/17 20:42 09/22/17 20:42 09/22/17 20:42 Pulse Oximeter Continuous Start: 09/20/17 11: 56 Freq: RTQ4 Status: Active Document 09/23/17 04:00 LRO (Rec: 09/23/17 05:06 LRO [email or web address]) Pulse Oximetry Assessment Equipment Usage Equipment Standby Continuous SpO2 Machine # 4 Intake & Output 09/22/17 09/23/17 09/24/17 06:59 06:59 06:59 Intake Total 2590 2430 Output Total 600 400 Balance 1989 2029 Weight 86.1 kg General appearance: PRESENT: mild distress Mouth exam: PRESENT: neck supple Respiratory exam: PRESENT: decreased breath sounds Cardiovascular exam: PRESENT: +S1, +S2 GI/Abdominal exam: PRESENT: ascites Neurological exam: PRESENT: alert, altered Results Impressions: Abdomen X-Ray 09/14/17 19:03 IMPRESSION: Unchanged basilar pulmonary findings. No acute abdominal process identified on radiographs. Nonspecific but relatively nonobstructive bowel gas pattern. Abdomen Ultrasound 09/21/17 00:00 IMPRESSION: MODERATE ASCITES. Assessment & Plan - Diagnosis (1) Dehydration Is this a current diagnosis for this admission?: Yes Plan: Currently all resolved (2) Metastatic primary lung cancer Qualifiers: Laterality: unspecified laterality Qualified Code(s): C34.90 - Malignant neoplasm of unspecified part of unspecified bronchus or lung Is this a current diagnosis for this admission?: Yes Plan: As per discussed with the oncology possible hospice care (3) Abdominal swelling, generalized Is this a current diagnosis for this admission?: Yes Plan: While patient is worsening the conditions pretty much more comfort care no need for any paracentesis at this point (4) Nausea & vomiting Qualifiers: Vomiting type: cyclical vomiting Vomiting Intractability: intractable Qualified Code(s): G43.A1 - Cyclical vomiting, intractable Is this a current diagnosis for this admission?: Yes (5) Pleural effusion Is this a current diagnosis for this admission?: Yes (6) Sleep apnea Qualifiers: Sleep apnea type: unspecified type Qualified Code(s): G47.30 - Sleep apnea , unspecified Is this a current diagnosis for this admission?: Yes (7) Type 2 diabetes mellitus Qualifiers: Diabetes mellitus complication status: without complication Diabetes mellitus prison insulin use: without prison use Qualified Code(s): E11.9 - Type 2 diabetes mellitus without complications Is this a current diagnosis for this admission?: Yes - Time Time Spent with patient: 15-24 minutes Medications reviewed and adjusted accordingly: Yes Anticipated discharge: Other Within: Other - Inpatient Certification Medical Necessity: Need Close Monitoring Due to Risk of Patient Decompensation Post Hospital Care: D/C Food Mixer Documentation - Plan Summary Plan Summary: Very extensive discussion with the patient's son regarding the patient's subjective rating condition comfort care and pretty much patient is currently unable to take anything by p.o. we will continues the patient current med with the pain medications adjustments Patient's prognosis is very poor and the patient's son visited yesterday Will wait to transport the comfort care to the fdc facilities if the patient's remained prolonged
--- NOTE | 2017-09-23 08:29 | PDOC PROGRESS REPORT ---
Subjective Progress Note for:: 09/23/17 Subjective:: Pt looking much worse this am, pt is poorly responsive now, not able to make full sentences, now on comfort measures. Son and sister has been called by nursing, and are coming to bedside today. Reason For Visit: DEHYDRATION, LUNG NEOPLASM Physical Exam Vital Signs: Temp Pulse Resp BP Pulse Ox 97.5 F 116 H 27 H 140/72 H 97 09/22/17 20:42 09/22/17 20:42 09/22/17 20:42 09/22/17 20:42 09/22/17 20:42 Pulse Oximeter Continuous Start: 09/20/17 11: 56 Freq: RTQ4 Status: Active Document 09/23/17 04:00 LRO (Rec: 09/23/17 05:06 LRO [email or web address]) Pulse Oximetry Assessment Equipment Usage Equipment Standby Continuous SpO2 Machine # 4 Intake & Output 09/22/17 09/23/17 09/24/17 06:59 06:59 06:59 Intake Total 2590 2430 Output Total 600 400 Balance 1989 2029 Weight 86.1 kg General appearance: PRESENT: mild distress Respiratory exam: PRESENT: accessory muscle use, crackles, decreased breath sounds, retraction Cardiovascular exam: PRESENT: tachycardia GI/Abdominal exam: PRESENT: ascites Rectal exam: PRESENT: deferred Neurological exam: PRESENT: altered Results Impressions: Abdomen X-Ray 09/14/17 19:03 IMPRESSION: Unchanged basilar pulmonary findings. No acute abdominal process identified on radiographs. Nonspecific but relatively nonobstructive bowel gas pattern. Abdomen Ultrasound 09/21/17 00:00 IMPRESSION: MODERATE ASCITES. 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 Continue inpatient hospice at present. (4) Nausea & vomiting Qualifiers: Vomiting type: cyclical vomiting Vomiting Intractability: intractable Qualified Code(s): G43.A1 - Cyclical vomiting, intractable Is this a current diagnosis for this admission?: Yes - Time Time Spent with patient: 35 or more minutes Disposition: Today spent 40 min in coordination of care, calling family. Talking w. medical team - Inpatient Certification Based on my medical assessment, after consideration of the patient's comorbidities, presenting symptoms, or acuity I expect that the services needed warrant INPATIENT care.: Yes I certify that my determination is in accordance with my understanding of Medicare's requirements for reasonable and necessary INPATIENT services [42 CFR 412.3e].: Yes Medical Necessity: Need for Pain Control, Risk of Complication if Not Cared For in Hospital
[2017-09-23 08:43] VITALS: BP 125/65
[2017-09-23] MEDS: GUAIFENESIN 600 MG TABLET.SA PO SCH ×2 (09:20→21:21)
[2017-09-23] MEDS: TAMOXIFEN CITRATE 10 MG TABLET PO SCH (09:20)
[2017-09-23] MEDS: BRIMONIDINE TARTRATE 0.2% OPH SOLN 5 ML OD SCH ×2 (09:20→17:06)
[2017-09-23] MEDS: CALCIUM CARBONATE 500 MG TABLET PO SCH ×2 (09:20→17:06)
[2017-09-23] MEDS: FLUTICASONE/SALMETEROL DISKUS 250-50 MCG/DOSE IH SCH ×2 (09:20→21:21)
[2017-09-23] MEDS: RANOLAZINE 500 MG TAB.SR.12H PO SCH ×2 (09:20→21:21)
[2017-09-23] MEDS: BENZONATATE 100 MG CAPSULE PO SCH ×4 (09:20→21:21)
[2017-09-23] MEDS: LORAZEPAM INJ 2 MG/1 ML VIAL IV PRN ×2 (16:19→18:40)
[2017-09-23] MEDS ORDERED: ATROPINE SULFATE 1% OPH SOLN 5 ML BOTTLE SL PRN (21:15)
[2017-09-23] MEDS: LATANOPROST 0.005% OPH SOLN 2.5 ML OU SCH (21:21)
[2017-09-23] MEDS: MONTELUKAST SODIUM 10 MG TABLET PO SCH (21:21)
[2017-09-24] MEDS: DILTIAZEM HCL 30 MG TABLET PO SCH (05:35)
[2017-09-24] MEDS: CLONIDINE HCL 0.1 MG TABLET PO SCH (05:35)
[2017-09-24] MEDS: LANSOPRAZOLE 30 MG TAB.RAP.DR PO SCH (05:35)
--- NOTE | 2017-09-26 07:52 | Death Summary ---
Summary Date : 09/24/17 Autopsy: No Resuscitation Status: Comfort Measures Only - Final Diagnosis (1) Dehydration Is this a current diagnosis for this admission?: Yes (2) Metastatic primary lung cancer Is this a current diagnosis for this admission?: Yes (3) Abdominal swelling, generalized Is this a current diagnosis for this admission?: Yes (4) Nausea & vomiting Is this a current diagnosis for this admission?: Yes (5) Pleural effusion Is this a current diagnosis for this admission?: Yes (6) Sleep apnea Is this a current diagnosis for this admission?: Yes (7) Type 2 diabetes mellitus Is this a current diagnosis for this admission?: Yes Hospital Course:: This is a 61-year-old female with a stage IV lung cancer with the multiple other medical comorbidity as able admitted in the hospitals for the dehydration' s nausea vomiting and ascites Patient seen by oncology and suggest the hospice care Patient's condition is very deteriorating and the discussed with the patient and the family and described for the comfort care and patients in the hospitals comfort care
== END 2017-09-24 05:30 | DRG 392 ==
LOC: ER 13:48 → EH 20:09 → INTOOBSV 20:09 → 4S 09-15 01:30 → OBSVTOIN 09-16 15:46
PROVIDERS: ADMIT Internal Medicine; ATTEND Family Medicine
PROC: 5A09357 Assistance with Respiratory Ventilation, Less than 24 Consecutive Hours, Continuous Positive Airway Pressure (ICD-10-PCS; principal; 2017-09-20)
DX: K52.9 Noninfective gastroenteritis and colitis, unspecified (principal); C34.11 Malignant neoplasm of upper lobe, right bronchus or lung; R18.8 Other ascites; C79.89 Secondary malignant neoplasm of other specified sites; E86.0 Dehydration; Z66 Do not resuscitate; G47.30 Sleep apnea, unspecified; E11.9 Type 2 diabetes mellitus without complications; I48.91 Unspecified atrial fibrillation; E78.00 Pure hypercholesterolemia, unspecified; I10 Essential (primary) hypertension; J44.9 Chronic obstructive pulmonary disease, unspecified; K21.9 Gastro-esophageal reflux disease without esophagitis; M17.12 Unilateral primary osteoarthritis, left knee; G43.A1 Cyclical vomiting, in migraine, intractable; E87.6 Hypokalemia; E66.9 Obesity, unspecified; Z68.37 Body mass index [BMI] 37.0-37.9, adult; Z79.4 Long term (current) use of insulin; Z79.899 Other long term (current) drug therapy; Z85.3 Personal history of malignant neoplasm of breast; Z90.710 Acquired absence of both cervix and uterus; Z90.12 Acquired absence of left breast and nipple; Z60.2 Problems related to living alone; Z87.891 Personal history of nicotine dependence; Z88.2 Allergy status to sulfonamides; Z88.8 Allergy status to other drugs, medicaments and biological substances; Z88.6 Allergy status to analgesic agent; Z91.040 Latex allergy status; Z83.6 Family history of other diseases of the respiratory system; Z82.49 Family history of ischemic heart disease and other diseases of the circulatory system
CPT/HCPCS: 36415; 51701; 74019; 76705; 80053; 81001; 82550; 82553; 83690; 84484; 85025; 85610; 87040; 87045; 87205; 87493; 89055; 94660; 94762; 96374; 96375; 99285; A9270-GY; G0378; J0360; J1170; J2060; J2270; J2405; J2550; J3480; J3490